=== PATIENT | male | born 1965 | race Caucasian/White ===

== ENCOUNTER 2020-05-23 19:44 | Emergency (ER) | payer MEDICARE, MEDICAID, SELFPAY ==
[2020-05-23] VITALS (15 sets, daily range): BP systolic 121–169; BP diastolic 78–115; PULSE 61–96; RESP 16–28; TEMP 36.3–36.4; O2SAT 93–100
--- NOTE | 2020-05-23 20:09 | ED.GENADUL_ITS ---
Discharge Plan Disposition Patient Disposition: HOME Condition: Stable Discharge Details Chief Complaint: SOB Clinical Impression: Asthma exacerbation in COPD Primary Care Provider: Anita,Local ED Provider: Dex Boyd Home Meds and New Rx's Prescriptions: New doxycycline hyclate 100 mg tablet 100 mg PO BID Qty: 14 RF: 0 prednisone 20 mg tablet 60 mg PO DAILY 4 Days Qty: 12 RF: 0 Continued Uniphyl 400 MG tablet extended release 400 mg PO BID RF: 0 levothyroxine [Synthroid] 25 MCG tablet 1 tab PO DAILY RF: 0 albuterol sulfate [ProAir HFA] 200 PUFF HFA aerosol inhaler 2 puff Inhalation PRNRF: 0 Spiriva with HandiHaler 18 MCG capsule, w/inhalation device 1 puff Inhalation DAILY RF: 0 Asmanex Twisthaler 1 EACH aerosol powdr breath activated 2 puff Inhalation BID RF: 0 prednisone 20 MG tablet 60 mg PO DAILY 4 Days RF: 0 doxycycline hyclate [Doryx] 100 MG tablet,delayed release (DR/EC) 100 mg PO BID Qty: 14 RF: 0 gabapentin 600 mg Tablet 600 mg PO BID RF: 0 loratadine [Claritin] 10 mg Tablet 10 mg PO DAILY RF: 0 guaifenesin [Mucinex] 600 mg Tablet Extended Release 12hr 600 mg PO BID RF: 0 Discharge Instructions Instructions: COPD (Chronic Obstructive Pulmonary Disease) (ED) Additional Instructions: your xray showed lung nodules which is likely from your prior smoking, you need to let your primary care provider of this and may need to have a cat scan follow up with your primary care provider within 1 week if you feel more ill, have worsening difficulty breathing or chest pain/pressure retrun to the emergency department Medical Decision Making 55 yo male with hx of copd who has been out of his meds since because the [place]'t [place] them yet and has had slowly worsening shortness of breath since then. No fevers, intermittent mild cough not worse from baseline, no chest pressure, has an ache in the anterior chest similar to when his copd acts up. He is HD stable with diffuse wheezing in all lung peterson speaking in full sentences, soft abdomen, no calf tenderness, no jvd. Based on history and exam suspect copd, will tx with steroids and nebs. His chest pain doesn't seem typical of acs but will obtain ecg and troponin, has had pain for over 6 hours so if troponin negative doubt RI. No pleuritic chest pain or evidence of dvt and exam consistent with copd so doubt PE pt remains stable and feels much better after nebs and soludemrol. His xray shows pneumonitis and will start doxy for this, also shows nodules which I informed him of. He does not want to stay for more nebs and would like to go home, will d/c on prednisone, doxy and albuterol and advised f/u with pcp with return precautions Differential Diagnosis Differential Diagnosis: copd, pna, bronchitis Imaging Data Radiologic Study: Attestation: I personally reviewed and interpreted this imaging study as follows: Imaging: X-Ray Radiologist's impression: IMPRESSION: 1. Bibasilar interstitial findings suggesting pneumonitis that may be viral or atypical bacterial related. 2. Old granulomatous disease. 3. 5 mm and smaller lung nodules at the left lung base. As these nodules are overlying the posterior 9th rib, it is difficult to tell whether or not the calcified. If clinically warranted, consider CT scan of the chest for further characterization. ECG Data Attestation: I personally reviewed and interpreted this ECG (s) as follows: Prior ECG tracings: not available for review Interpretation: sinus rhythm, rate of 79, pr 144, qtc 385 HPI General Mode of arrival: EMS . Date/Time Provider Initiated Documentation: 05/23/20 20:01 . Limitations to Documentation: no limitations . Information obtained by: patient . History of Present Illness 55 year old M presents to the emergency department with the chief complaint of shortness of breath, described as moderate, Patient started experiencing this day(s) (3) and it has been constant. No relieving factors improve symptom(s), No ex acerbating factors reported . Patient did receive the following treatments prior to arrival, none Related Data Home Medications Medication Instructions Recorded Confirmed Asmanex Twisthaler 2 puff INHALATION BID 07/31/17 05/23/20 Spiriva with HandiHaler 1 puff INHALATION DAILY 07/31/17 05/23/20 Uniphyl 400 mg PO BID 07/31/17 05/23/20 albuterol sulfate [ProAir HFA] 2 puff INHALATION PRN 07/31/17 doxycycline hyclate [Doryx] 100 mg PO BID #14 tabcr 07/31/17 levothyroxine [Synthroid] 1 tab PO DAILY 07/31/17 05/23/20 prednisone 60 mg PO DAILY 4 Days tab 07/31/17 doxycycline hyclate 100 mg PO BID #14 tab 05/23/20 gabapentin 600 mg PO BID 05/23/20 05/23/20 guaifenesin [Mucinex] 600 mg PO BID 05/23/20 05/23/20 loratadine [Claritin] 10 mg PO DAILY 05/23/20 05/23/20 prednisone 60 mg PO DAILY 4 Days #12 tab 05/23/20 Previous Rx's Medication Instructions Recorded doxycycline hyclate [Doryx] 100 mg PO BID #14 tabcr 07/31/17 prednisone 60 mg PO DAILY 4 Days tab 07/31/17 doxycycline hyclate 100 mg PO BID #14 tab 05/23/20 prednisone 60 mg PO DAILY 4 Days #12 tab 05/23/20 Allergies Allergy/AdvReac Type Severity Reaction Status Date / Time pineapple Allergy Severe Anaphylaxsi Unverified 05/23/20 19:47 s lysol Allergy Severe Anaphylaxsi Uncoded 05/23/20 19:47 s General Stated Complaint: SOB BRUCE: 3 Review of Systems All systems reviewed & are unremarkable except as noted in HPI and below Constitutional Constitutional: Denies chills, Denies fever(s) and Denies weakness Respiratory Respiratory: Denies cough Gastrointestinal Gastrointestinal: Denies abdominal pain, Denies nausea and Denies vomiting Musculoskeletal Musculoskeletal: Denies joint swelling Neurologic Neurologic: Denies weakness Psychiatric Psychiatric: Denies depression PFSH Social History Smoking/Tobacco Use Status: Never Alcohol Intake: never Drug use: Never Substance use type: does not use Do you feel safe at home: Yes Do you feel safe in your relationship?: Yes Exam Const General: no acute distress Orientation: alert HENVA Head: normal to inspection Ears: external ears normal General nose exam: external nose normal Mouth: moist mucous membranes Eyes General: appearance normal, both eyes and all related structures Neck Neck: normal visual inspection Resp Effort & Inspection: audible wheezes and no use of accessory muscles Cardio Rate: regular rate Skin General skin exam: no rashes or lesions noted Neuro General: patient alert and patient oriented x3 Extrem General: normal to inspection Psych Mental Status: mental status grossly normal Course Vital Signs Vital signs: Vital Signs Temperature 36.3 C L 05/23/20 19:52 Pulse 89 05/23/20 19:52 Respiratory Rate 22 07/05/20 19:52 Blood Pressure 157/88 H 05/23/20 19:52 Pulse Oximetry 96 05/23/20 19:52 Temperature 36.3 C L 05/23/20 19:52 Temperature Source Tympanic 05/23/20 19:52 Pulse 89 05/23/20 19:52 Respiratory Rate 22 05/23/20 19:52 Respiratory Effort Pursed Lip 05/23/20 19:57 Respiratory Depth Shallow 05/23/20 19:57 Respiratory Pattern Normal 05/23/20 19:57 Blood Pressure 157/88 H 05/23/20 19:52 Pulse Oximetry 96 05/23/20 19:52 Oxygen Delivery Method Room Air 05/23/20 19:52 Oxygen Flow Rate 0 05/23/20 19:52 Pain Level 6 05/23/20 19:57
[2020-05-23 20:25] LABS: BE (Venous) 4.5 mmol/L (-3-3); HCO3 (Venous) 30 mmol/L (22-28); O2 Sat (Venous) 40 % (70-80); TCO2 (Venous) 27 mmol/L (22-29); pCO2 (Venous) 57 mm/Hg (34-47); pH (Venous) 7.33 (7.35-7.45); pO2 (Venous) 24 mm/Hg (28-44)
[2020-05-23 20:27] LABS: Abs Immature Grans 0.02 k/cumm (0.0-0.09); Absolute Basophil Count 0.03 k/cumm (0.0-0.2); Absolute Eosinophil Count 0.31 k/cumm (0.0-0.7); Absolute Lymphocyte Count 1.82 k/cumm (1.2-3.4); Absolute Monocyte Count 0.42 k/cumm (0.11-0.7); Absolute Neutrophil Count 4.32 k/cumm (1.2-6.7); Basophils % 0.4; Eosinophils % 4.5; HCT 44.8 % (40.0-50.0); HGB 15.5 g/dL (13.5-17.5); Immature Grans % 0.3 %; Lymphocytes % 26.3; Mean Corp. HGB Concentration 34.6 g/dL (32.0-36.0); Mean Corpuscular Hemoglobin 30.5 pg (27.0-33.0); Mean Platelet Volume 9.6 fL (8.0-11.0); Monocytes % 6.1; Neutrophils % 62.4; Platelet Count 261 x1000/uL (130-400); RBC 5.09 m/cumm (4.50-6.00); RBC Distribution Width 12.4 % (11.8-14.1); White Blood Cell Count 6.92 k/cumm (4.4-10.8)
--- NOTE | 2020-05-23 20:35 | DI.RAD_ITS ---
EXAM: XR PORTABLE CHEST AP CLINICAL HISTORY: shortness of breath TECHNIQUE: 2D digital imaging was performed. COMPARISON: CR LEFT RIBS TO INCLUDE CXR from 03/27/2011 FINDINGS: The heart size is normal. Calcifications near the left hilum are again noted related to granulomatou s disease. Left lower lobe calcifications are also present. The lungs are hyperinflated. No infilt rate, effusion or pneumothorax is seen. IMPRESSION: No acute pulmonary findings. DATA REPOSITORY: RADIATION DOSE DELIVERED:
[2020-05-23] MEDS: methylPREDNISolone SUCC 125 MG VIAL IVP (20:42)
[2020-05-23] MEDS: Albuterol/Ipratropium 3 ML UPD VIAL UPD (20:42)
--- NOTE | 2020-05-23 20:50 | DI.VRAD_ITS ---
PROCEDURE INFORMATION: Exam: XR Chest, 1 View Exam date and time: 05/23/2020 8:29 PM Age: 55 years old Clinical indication: Shortness of breath TECHNIQUE: Imaging protocol: XR of the chest Views: 1 view. COMPARISON: No relevant prior studies available. FINDINGS: Lungs: There is mild pulmonary hyperexpansion. There are calcified left hilar lymph nodes. There is bibasilar interstitial coarsening. No consolidation. There is a cluster of small nodules in the left lung base overlying the posterior aspect of the left 9th rib that may or may not represent calcified granulomata. Pleural space: No pleural effusion or pneumothorax. Heart/Mediastinum: The heart and mediastinum are normal in size. Bones/joints: Unremarkable. IMPRESSION: 1. Bibasilar interstitial findings suggesting pneumonitis that may be viral or atypical bacterial related. 2. Old granulomatous disease. 3. 5 mm and smaller lung nodules at the left lung base. As these nodules are overlying the posterior 9th rib, it is difficult to tell whether or not the calcified. If clinically warranted, consider CT scan of the chest for further characterization. Dictated and Authenticated by: Kurt Navarro MD. Ordering:SOLOMON Kowalski MD
[2020-05-23 20:55] LABS: ALT 15 U/L (16-63); AST 12 U/L (15-37); Albumin 3.9 g/dL (3.4-5.0); Alkaline Phosphatase 74 U/L (46-116); BUN 18 mg/dL (7-18); Bilirubin, Total 0.3 mg/dL (0.2-1.0); Calcium 9.6 mg/dL (8.5-10.1); Chloride 105 mmol/L (98-107); Glucose 96 mg/dL (74-106); Sodium 141 mmol/L (136-145); Total Protein 7.3 g/dL (6.4-8.2)
[2020-05-23 21:00] LABS: Troponin I < 0.05 ng/mL (<0.06)
[2020-05-23] MEDS: Doxycycline Hyclate 100 MG CAP PO (21:09)
--- NOTE | 2020-05-24 12:47 | NUR.NOTE ---
Nursing Note: pt called today 05/24/2020 1245pm. said he was seen here last night and needs to follow up with primary,but does not have one. I put him on the list to get a PCP and gave to care management. kw
--- NOTE | 2020-05-24 14:14 | CMPROGNOTE_ITS ---
- If Service Date Differs Date of service: 05/24/20 Time of Service: 14:14 Care Management Progress Note Sean is seen in the ED on 05/23/2020 for asthma exacerbation. [facility] is asked by ED provider to coordinate a referral to Dr. Rapp, teledoc, at [facility]. Before the referral is sent, [facility] receives a telephone call from Venessa of [facility] advising Sean' has called their health center hoping to get Sean established there. Venessa requests notes from Sean' ED visit for review. [facility] will follow-up with Venessa in a few days to ensure they were able to offer Sean a follow-up ED visit.
== END 2020-05-23 21:25 | disposition home or self-care (01) ==
PROVIDERS: Emergency Provider Emergency Medicine
DX: J44.0 Chronic obstructive pulmonary disease with (acute) lower respiratory infection (principal); J18.9 Pneumonia, unspecified organism; J45.901 Unspecified asthma with (acute) exacerbation; R91.1 Solitary pulmonary nodule; R05 Cough
CPT/HCPCS: 36415; 80053; 82805; 93005; 94640; 96374; 99285; 71045; 84484; 85025; 93010; 99284; J2930; J7620

== ENCOUNTER 2020-07-27 15:41 | Outpatient (REF) | payer MEDICARE, MEDICAID, SELFPAY ==
[2020-07-30 11:07] LABS: Patient Race White; SARS-CoV-2 RNA Undetected (Undetected); SARS-CoV-2 Specimen Source Nasal
== END 2020-07-27 16:01 ==
LOC: NCHCN 15:41
PROVIDERS: PCP Nurse Practitioner Family; Visit Provider Internal Medicine
DX: Z20.828 Contact with and (suspected) exposure to other viral communicable diseases (principal)
CPT/HCPCS: U0003

== ENCOUNTER 2020-09-24 04:26 | Outpatient (CLI) | payer MEDICAID, SELFPAY ==
--- NOTE | 2020-09-24 10:45 | DI.RAD_ITS ---
EXAM: XR LUMBAR SPINE COMPLETE CLINICAL HISTORY: CHRONIC LOW BACK PAIN,M54.5. TECHNIQUE: 2D digital imaging was performed. COMPARISON: No exams were available for comparison FINDINGS: Are 5 lumbar type vertebral bodies. There is disc space narrowing at L4-L5. Small endplate osteophy ion are also noted at L4-L5. No spondylolysis or spondylolisthesis. No acute fractures or subluxati ons. There is straightening of the normal lumbar lordosis. Atherosclerosis is present. IMPRESSION: Mild degenerative changes in the lumbar spine. DATA REPOSITORY: RADIATION DOSE DELIVERED:
== END 2020-09-24 04:46 ==
PROVIDERS: PCP Internal Medicine; Visit Provider Internal Medicine
DX: M47.816 Spondylosis without myelopathy or radiculopathy, lumbar region (principal)
CPT/HCPCS: 72110

== ENCOUNTER 2020-10-01 03:39 | Outpatient (CLI) | payer MEDICAID, SELFPAY ==
--- NOTE | 2020-10-01 14:31 | DI.CT_ITS ---
EXAM: CT CHEST WO CLINICAL HISTORY: CHRONIC OBSTRUCTIVE PULMONARY DISEASE,J44.9. TECHNIQUE: Imaging protocol: Axial computed tomography images were obtained and coronal and sagittal reformatted images were created and reviewed. COMPARISON: CR,XR XR PORTABLE CHEST AP from 05/23/2020 FINDINGS: The examination is limited due to patient motion artifact. Tracheobronchial tree: Patent where visualized. Mediastinum and Maxine: No dominant adenopathy or fluid collection. Calcified mediastinal lymph nodes. Pulmonary parenchyma: Marked centrilobular emphysematous changes. Scarring in the right middle lobe. Calcified granuloma in the left lower lobe. No focal consolidating infiltrates. Pleura: No effusion or pneumothorax. Heart: The heart is not dilated. No coronary artery calcifications are seen. No pericardial effusion. Aorta: Thoracic aorta non-dilated. Mild atherosclerosis. Upper abdomen: Calcified granuloma in the spleen. Lymph nodes: Calcified mediastinal lymph nodes. Bones:Normal. Soft tissues: Unremarkable. IMPRESSION: 1. Marked centrilobular emphysema. 2. Findings of prior granulomatous disease with a calcified pulmonary nodule, calcified mediastinal l ymph nodes and splenic calcifications. 3. Mild atherosclerosis. RADIATION DOSE DELIVERED: 687.11mGy.cm Total DLP 687.11mGy.cm Total DLP DATA REPOSITORY: All CT scans at this facility are submitted to the National Radiology Data Registry (NRDR) Dose Index Registry (DIR) with the [employer] ([employer]). RADIATION OPTIMIZATION: All CT scans at this facility use at least one of these dose optimization te chniques: automated exposure control; mA and/or kV adjustment per patient size (includes targeted exa ms where dose is matched to clinical indication); or iterative reconstruction.
== END 2020-10-01 03:59 ==
PROVIDERS: PCP Internal Medicine; Visit Provider Internal Medicine
DX: J43.2 Centrilobular emphysema (principal); R91.1 Solitary pulmonary nodule; I25.10 Atherosclerotic heart disease of native coronary artery without angina pectoris; I89.8 Other specified noninfective disorders of lymphatic vessels and lymph nodes
CPT/HCPCS: 71250

== ENCOUNTER 2020-11-01 16:41 | Outpatient (REF) | payer MEDICAID, SELFPAY ==
[2020-11-04 21:35] LABS: COVID-19 RT-PCR Result NEGATIVE (Negative)
== END 2020-11-01 17:01 ==
LOC: NCHCN 16:41
PROVIDERS: PCP Internal Medicine; Visit Provider Internal Medicine
DX: Z20.828 Contact with and (suspected) exposure to other viral communicable diseases (principal)
CPT/HCPCS: U0003

== ENCOUNTER 2020-11-08 20:59 | Outpatient (REF) | payer MEDICAID, MEDICARE, SELFPAY ==
[2020-11-11 00:13] LABS: COVID-19 RT-PCR Result NEGATIVE (Negative)
== END 2020-11-08 21:19 ==
LOC: NCHCN 20:59
PROVIDERS: PCP Internal Medicine; Visit Provider Nurse Practitioner Family
DX: Z20.828 Contact with and (suspected) exposure to other viral communicable diseases (principal)
CPT/HCPCS: U0003

== ENCOUNTER 2020-11-11 10:54 | Emergency (ER) | payer MEDICAID, SELFPAY ==
[2020-11-11] VITALS (35 sets, daily range): BP systolic 110–144; BP diastolic 74–92; PULSE 68–95; RESP 9–28; TEMP 36.8; O2SAT 91–97
--- NOTE | 2020-11-11 11:00 | RT.EKG_ITS ---
APPROVED REPORT Exam: Resting ECG Patient Location: E HR:85 bpm ECG Measurements Heart Rate 85 AXIS AZ 129 P 86 QRSd 86 QRS 22 QT 344 T 67 QTc 410 Conclusion Sinus rhythm...normal P axis, V-rate 60- 99 I have reviewed and interpreted ECG and agree with software generated interpretation.
--- NOTE | 2020-11-11 12:00 | DI.CT_ITS ---
EXAM: CT CHEST PE CTA CLINICAL HISTORY: SOB, COPD, Covid exposure. TECHNIQUE: Imaging Protocol: Axial CT angiography was performed with multi-slice acquisition and mu lti-planar and/or 3D reconstructions. CONTRAST MATERIAL: Intravenous: Omnipaque 350 Contrast volume:99 mL COMPARISON: CT CT CHEST WO from 10/01/2020 FINDINGS: Pulmonary Arteries: No evidence of filling defect to suggest pulmonary emboli. Tracheobronchial tree: Patent where visualized. Mediastinum and Maxine: No dominant adenopathy or fluid collection. Calcified lymph nodes seen in the m ediastinum and left hilum consistent with prior granulomatous disease. Pulmonary parenchyma: Marked emphysematous changes in the lungs. No focal consolidating infiltrates. Calcified granuloma in the left lung. Stable parenchymal scarring. Pleura: No effusion or pneumothorax. Heart: The heart is not dilated. No coronary artery calcifications are seen. No pericardial effusion. Aorta: Thoracic aorta non-dilated. Mild atherosclerosis. No evidence of dissection. Upper abdomen: Calcified granuloma in the spleen and liver. Bones: Mild degenerative changes in the spine. Soft tissues: Unremarkable. IMPRESSION: 1. No evidence of pulmonary embolism, thoracic aortic dissection or aneurysm. 2. No CT evidence of pneumonia. 3. Severe emphysematous changes in the lung. 4. Findings consistent with prior granulomatous disease. RADIATION DOSE DELIVERED: 546.12mGy.cm Total DLP DATA REPOSITORY: All CT scans at this facility are submitted to the National Radiology Data Registry (NRDR) Dose Index Registry (DIR) with the [employer] ([employer]). RADIATION OPTIMIZATION: All CT scans at this facility use at least one of these dose optimization te chniques: automated exposure control; mA and/or kV adjustment per patient size (includes targeted exa ms where dose is matched to clinical indication); or iterative reconstruction.
--- NOTE | 2020-11-11 12:00 | ED.GENADUL_ITS ---
Discharge Plan Disposition Patient Disposition: HOME Condition: Stable Discharge Details Clinical Impression: Shortness of breath Primary Care Provider: Rashawn Francisco ED Provider: Jose Cruz Porter Home Meds and New Rx's Prescriptions: Continued gabapentin 600 mg tablet 600 mg PO BID RF: 0 furosemide 40 mg tablet 40 mg PO DAILY RF: 0 tramadol 50 mg tablet 50 mg PO Q6H PRNRF: 0 omeprazole 20 mg capsule,delayed release(DR/EC) 20 mg PO DAILY RF: 0 Trelegy Ellipta 200-62.5-25 mcg Blister With Device 1 inh INHALATION DAILY RF: 0 albuterol sulfate 2.5 mg /3 mL (0.083 %) Solution For Nebulization 2.5 mg inhalation QID PRN PRNRF: 0 prednisone 10 mg Tablets,Dose Pack PO DAILY RF: 0 levothyroxine [Synthroid] 25 MCG tablet 1 tab PO DAILY RF: 0 albuterol sulfate [ProAir HFA] 200 PUFF HFA aerosol inhaler 2 puff Inhalation PRNRF: 0 loratadine [Claritin] 10 mg Tablet 10 mg PO DAILY RF: 0 guaifenesin [Mucinex] 600 mg Tablet Extended Release 12hr 600 mg PO BID RF: 0 Discharge Instructions Instructions: Dyspnea (ED) Additional Instructions: Work-up here in the ER did not reveal any obvious emergent process. Laboratory values, repeat cardiac enzyme, and chest CTA were unremarkable. There is no clear indication for additional antibiotic therapy. Continue taking your medication as directed. Continue [id number] medication for symptomatic control. Covid test is pending, quarantine until the test comes back negative. I do recommend contacting both your primary care provider and e learning specialist next available business hours, I am unsure of their hours given the holidays. Please watch for new or worsening symptoms and return to the ER for any concerns. Stand Alone Forms: POSITIVE COVID-19/TO BE TESTED Discharge Data Discharge Date/Time-TO BE ENTERED AT DEPARTURE: 11/11/20 15:35 Medical Decision Making 55-year-old gentleman, history of COPD, granulomatous lung disease, hypothyroidism, former smoker, presents to the ER reporting nasal congestion, fever 4 days ago, continuation of productive cough and shortness of breath. His was diagnosed with Covid however his tests have come back negative. He has recently been on 3 separate antibiotic regimens, amoxicillin, doxycycline, Levaquin, and finishing the last couple of days of his steroid taper. He does have a local primary care provider and e learning specialist. He reports that there has been no change in his medications. Given his cough, shortness of breath, decreased taste and smell, certainly Covid is high on my differential even with his negative test. Clinically he appears well, nontoxic. Here in the ER he is afebrile. Blood pressure 113/91, pulse in the 80s, O2 sat 95% on room air. Of note his initial respiratory rate was 28 however during my evaluation he was 14. We will initiate a cardiac work-up and obtain a chest CTA for further evaluation of his ongoing symptoms. He denies any chest pain whatsoever, will not initiate aspirin therapy. After coughing, his lungs are clear to auscultation, no clear indication for breathing treatments. Patient is comfortable with this plan. Laboratory values are unremarkable for any obvious acute emergent process. White blood cell count of 8.31. No evidence of anemia. Electrolytes unremarkable. GFR greater than 60. Magnesium 2.3, troponin less than 0.05. Patient and I discussed his initial results. He is willing to wait for a repeat troponin. Upon reevaluation he is resting comfortably using a cell phone without difficulty. Chest CTA read by virtual radiology as no evidence of COVID-19 pneumonia. No pulmonary emboli. Severe emphysema with scarring of the right upper lobe. Evidence of prior granulomatous disease. Repeat troponin remains less than 0.05. Patient remains hemodynamically stable under my care. He speaks in full sentences without difficulty. O2 sat remains in the mid 90s on room air. Discussed CT results and repeat troponin with patient. Covid test is pending. No clear indication for antibiotic therapy here in the ER today. Recommend treating with [id number] medications, continuing his current medication regimen, and contacting both his primary care provider and pulmonology team for his ongoing symptoms during business hours. He was encouraged to return to the ER for new or worsening symptoms. We discussed quarantining until his Covid test was resulted and negative. Patient has no additional questions or concerns and is comfortable discharge at this time. Medical Records Medical records reviewed: Yes I reviewed the patient's medical records. Lab Data Lab results reviewed: Yes I reviewed the patient's lab results. Labs: Laboratory Tests Range/Units 11/11/20 11/11/20 11/11/20 11:45 11:45 14:40 WBC (4.4-10.8) 10^3/uL 8.31 RBC (4.36-5.78) 10^6/uL 5.15 Hgb (13.5-17.5) g/dL 15.4 Hct (40.0-50.0) % 46.2 MCV (80-95) fL 89.7 MCH (27.0-33.0) pg 29.9 MCHC (32.0-36.0) % 33.3 RDW (11.8-14.1) % 13.1 Plt Count (130-400) 10^3/uL 273 MPV (8.0-11.0) fL 9.7 Immature Gran % 0.5 Neutrophils % 80.0 Lymphocytes % 15.0 Monocytes % 3.9 Eosinophils % 0.2 Basophils % 0.4 Nucleated RBC % % 0 Absolute Neutrophils (1.2-6.7) 10^3/uL 6.65 Absolute Lymphocytes (1.2-3.4) 10^3/uL 1.25 Absolute Monocytes (0.1-0.8) 10^3/uL 0.32 Absolute Eosinophils (0.0-0.7) 10^3/uL 0.02 Absolute Basophils (0.0-0.2) 10^3/uL 0.03 Sodium (136-145) mmol/L 140 Potassium (3.5-5.1) mmol/L 4.2 Chloride (98-107) mmol/L 106 Carbon Dioxide (21.0-32.0) mmol/L 25.9 Anion Gap (3-11) mmol/L 8.1 BUN (7-18) mg/dL 16 Creatinine (0.70-1.30) mg/dL 0.97 Estimated GFR/1.73 m2 (mL/min/1.73m2) >= 60.00 Glucose (74-106) mg/dL 119 H Calcium (8.5-10.1) mg/dL 9.0 Magnesium (1.8-2.4) mg/dL 2.3 Total Bilirubin (0.2-1.0) mg/dL 0.5 AST (15-37) U/L 8 L ALT (16-63) U/L 17 Alkaline Phosphatase (46-116) U/L 66 Troponin I (<0.06) ng/mL < 0.05 < 0.05 Total Protein (6.4-8.2) g/dL 6.7 Albumin (3.4-5.0) g/dL 3.3 L ECG Data Attestation: I personally reviewed and interpreted this ECG (s) as follows: Interpretation: Please see official report by Dr. Cerda. Sinus rhythm, ventricular of 85. No STEMI. HPI General Mode of arrival: ambulatory . Date/Time Provider Initiated Documentation: 11/11/20 10:55 . Limitations to Documentation: no limitations . Information obtained by: patient . HPI Narrative: This is a 55-year-old gentleman, past medical history of COPD, granulomatosis lung disease, hypothyroidism, former smoker, presenting to the ER today for ongoing sinus infection, cough, sometimes productive yellow sputum, worsening shortness of breath going on for at least 1 month. He tells me this all began nearly 1 year ago when he developed pneumonia, was hospitalized in [place]. Since then he has had very frequent infections. Over the past couple of months, he tells me he has been on 3 antibiotics for sinusitis and bronchitis. He was seen by his primary care provider last week most recently, placed on Levaquin and steroids. Levaquin has been completed. Has 2 days left of his steroid taper. He reports ongoing wheezing, chest tightness, but no chest pain. He reports a fever of 1 00.44 days ago. He denies recent travel. He reports that he lives in a trailer, his came back positive with a Covid test last week. He has been tested twice and was negative twice for Covid. Denies headache, visual changes, sore throat. Continues to have ongoing sinus congestion, clear-yellow drainage. Denies chest pain, back pain, abdominal pain, nausea, vomiting. Has had occasional diarrhea. Denies dysuria. Denies numbness, tingling, weakness. Reports decreased sense of smell and taste over the past several days. Patient reports that he was also recently on doxycycline and amoxicillin. He contacted his primary care office and they stated that he had exhausted the outpatient resources and likely needed further evaluation in the ER. Related Data Home Medications Medication Instructions Recorded Confirmed albuterol sulfate [ProAir HFA] 2 puff INHALATION PRN 07/31/17 levothyroxine [Synthroid] 1 tab PO DAILY 07/31/17 11/11/20 guaifenesin [Mucinex] 600 mg PO BID 05/23/20 11/11/20 loratadine [Claritin] 10 mg PO DAILY 05/23/20 11/11/20 furosemide 40 mg tablet 40 mg PO DAILY 07/02/20 11/11/20 gabapentin 600 mg tablet 600 mg PO BID tab 07/02/20 11/11/20 omeprazole 20 mg capsule,delayed 20 mg PO DAILY 07/02/20 11/11/20 release tramadol 50 mg tablet 50 mg PO Q6H PRN 07/02/20 11/11/20 Trelegy Ellipta 1 inh INHALATION DAILY 11/11/20 11/11/20 albuterol sulfate 2.5 mg INHALATION QID PRN PRN 11/11/20 11/11/20 prednisone mg PO DAILY 11/11/20 Allergies Allergy/AdvReac Type Severity Reaction Status Date / Time pineapple Allergy Severe Anaphylaxsi Unverified 11/11/20 11:27 s lysol Allergy Severe Anaphylaxsi Uncoded 11/11/20 11:27 s General Stated Complaint: SOB BRUCE: 2 Review of Systems Constitutional Constitutional: Denies fatigue, Reports fever(s) (4 days ago), Denies headache(s) and Denies weakness Eyes Eyes: Denies change in vision ENT Ears, Nose, Mouth, and Throat: Denies headache(s), Reports nasal congestion, Reports nasal discharge and Denies neck pain Cardiovascular Cardiovascular: Denies chest pain and Reports dyspnea Respiratory Respiratory: Reports cough, Denies hemoptysis, Reports excessive phlegm production, Reports dyspnea and Reports wheezing (Described as a tightness) Gastrointestinal Gastrointestinal: Denies abdominal pain, Reports diarrhea, Denies nausea and Denies vomiting Genitourinary Genitourinary: Denies dysuria Musculoskeletal Musculoskeletal: Denies back pain, Denies neck pain and Denies tingling Integumentary/Breasts Skin/Breast: Denies rash Neurologic Neurologic: Denies headache(s), Denies tingling and Denies weakness Endocrine Endocrine: Denies fatigue [facility] Medical History Acid reflux COPD (chronic obstructive pulmonary disease) Granulomatous lung disease Hypothyroidism Multiple nodules of lung Restless leg syndrome Social History Smoking/Tobacco Use Status: Former Tobacco Use Smoking risk assessment performed?: Yes Alcohol Intake: never Drug use: Never Substance use type: does not use Do you feel safe at home: Yes Do you feel safe in your relationship?: Yes Exam Const General: cooperative, healthy appearing, comfortable and no acute distress Orientation: alert, awake and oriented x3 HENMT Head: normal to inspection, normocephalic and atraumatic Ears: external ears normal, TM's normal bilaterally and EAC's normal General nose exam: external nose normal, nares normal, mucous membranes and turbinates abnormal erythematous and nasal discharge clear Face and sinus: normal facial exam Mouth: moist mucous membranes Throat: posterior oropharynx normal Eyes General: appearance normal, both eyes and all related structures Alignment and Position: alignment normal Periorbital: periorbital findings normal Eyelids: eyelids normal Conjunctivae: conjunctivae normal Sclera: sclerae normal Cornea: corneas normal Pupils: PERRL EOM: EOM intact bilaterally Direct ophthalmoscopy: normal light reflex Neck Neck: normal visual inspection, full ROM, no lymphadenopathy, trachea midline, supple and nontender Resp Effort & Inspection: normal respiratory effort and able to speak in complete sentences Auscultation: wheezes scattered wheezes (Minimal, clears with cough) Cardio Rate: regular rate Rhythm: regular rhythm GI Palpation: soft, not firm, no guarding and nontender Auscultation: normal bowel sounds Back/Spine/Pelvis Back: No back tenderness Skin General skin exam: no rashes or lesions noted Neuro General: patient alert, patient awake, moves all extremities and no focal motor deficits Cognition: normal cognition Speech: speech normal Gait: normal gait Motor: muscle tone normal throughout Sensory Exam: no sensory deficits noted Extrem General: normal to inspection, full ROM, capillary refill normal, no pedal edema and no calf tenderness Psych Appearance: grossly normal Mental Status: mental status grossly normal Course Vital Signs Vital signs: Vital Signs Temperature 36.8 C 11/11/20 11:00 Pulse 87 11/11/20 11:00 Respiratory Rate 28 H 11/11/20 11:00 Blood Pressure 113/91 H 11/11/20 11:00 Pulse Oximetry 95 11/11/20 11:00 Temperature 36.8 C 11/11/20 11:00 Temperature Source Skin 11/11/20 11:00 Pulse 87 11/11/20 11:00 Respiratory Rate 28 H 11/11/20 11:00 Respiratory Effort Non-Labored 11/11/20 11:34 Blood Pressure 113/91 H 11/11/20 11:00 Pulse Oximetry 95 11/11/20 11:00 Oxygen Delivery Method Room Air 11/11/20 11:00 Oxygen Flow Rate 0 11/11/20 11:00 Pain Level 5 11/11/20 11:00
[2020-11-11 12:11] LABS: Abs Immature Grans 0.04 10^3/uL (0.0-0.06); Absolute Basophil Count 0.03 10^3/uL (0.0-0.2); Absolute Eosinophil Count 0.02 10^3/uL (0.0-0.7); Absolute Lymphocyte Count 1.25 10^3/uL (1.2-3.4); Absolute Monocyte Count 0.32 10^3/uL (0.1-0.8); Absolute Neutrophil Count 6.65 10^3/uL (1.2-6.7); Basophils % 0.4; Eosinophils % 0.2; HCT 46.2 % (40.0-50.0); HGB 15.4 g/dL (13.5-17.5); Immature Grans % 0.5; MCH 29.9 pg (27.0-33.0); MCHC 33.3 % (32.0-36.0); MCV 89.7 fL (80-95); MPV 9.7 fL (8.0-11.0); Monocytes % 3.9; Nucleated RBC 0 %; Platelet Count 273 10^3/uL (130-400); RBC 5.15 10^6/uL (4.36-5.78); RDW 13.1 % (11.8-14.1); RDW-SD 42.7 fL; WBC 8.31 10^3/uL (4.4-10.8)
[2020-11-11 12:26] LABS: ALT 17 U/L (16-63); AST 8 U/L (15-37); Albumin 3.3 g/dL (3.4-5.0); Alkaline Phosphatase 66 U/L (46-116); Anion Gap 8.1 mmol/L (3-11); BUN 16 mg/dL (7-18); Bilirubin, Total 0.5 mg/dL (0.2-1.0); CO2 25.9 mmol/L (21.0-32.0); CREATININE 0.97 mg/dL (0.70-1.30); Chloride 106 mmol/L (98-107); Glucose 119 mg/dL (74-106); Magnesium 2.3 mg/dL (1.8-2.4); Potassium 4.2 mmol/L (3.5-5.1); Sodium 140 mmol/L (136-145); Total Protein 6.7 g/dL (6.4-8.2); Troponin I < 0.05 ng/mL (<0.06)
[2020-11-11] MEDS: Omnipaque 350 MG/ML 100 ML BTL IJ (13:03)
[2020-11-11] MEDS: Normal Saline - Diluent 50 ML VIAL IV (13:03)
[2020-11-11] MEDS: Normal Saline Flush 10 ML SYR IVP (13:03)
--- NOTE | 2020-11-11 13:26 | DI.VRAD_ITS ---
PROCEDURE INFORMATION: Exam: CT Angiography Chest With Contrast Exam date and time: 11/11/2020 12:03 PM Age: 55 years old Clinical indication: Other: SOB, copd, covid exposure TECHNIQUE: Imaging protocol: Computed tomographic angiography of the chest with intravenous contrast. 3D rendering (Not supervised by radiologist): MIP and/or 3D reconstructed images were created by the technologist. Radiation optimization: All CT scans at this facility use at least one of these dose optimization techniques: automated exposure control; mA and/or kV adjustment per patient size (includes targeted exams where dose is matched to clinical indication); or iterative reconstruction. Contrast material: OMNIPAQUE 350; Contrast volume: 100 ml; Contrast route: INTRAVENOUS (IV); COMPARISON: CT CHEST WO 10/01/2020 2:29 PM FINDINGS: Pulmonary arteries: Normal. No pulmonary emboli. Aorta: Unremarkable. No aortic aneurysm. No aortic dissection. Lungs: Bilateral lung parenchymal facilities changes. No airspace disease or consolidation. No evidence of pneumonia. Stable right upper lobe parenchymal scarring. Calcified pulmonary nodules. Pleural space: Unremarkable. No pneumothorax. No pleural effusion. Heart: Unremarkable. No cardiomegaly. No pericardial effusion. Lymph nodes: Calcified mediastinal lymph nodes. Spleen: Calcified splenic granulomas. Bones/joints: Unremarkable. No acute fracture. Soft tissues: Unremarkable. IMPRESSION: 1. No evidence of Covid-19 pneumonia. 2. No pulmonary emboli. 3. Severe emphysematous changes with stable right upper lobe parenchymal scarring. 4. Evidence of prior granulomatous disease. Dictated and Authenticated by: Donaldo Morel MD. Ordering:PEYTON Billingsley MD
[2020-11-11 15:22] LABS: Troponin I < 0.05 ng/mL (<0.06)
--- NOTE | 2020-11-11 15:42 | NUR.NOTE ---
Nursing Note: Patient was not noted coughing, having any increased work of breathing or any s/s of difficulty breathing at any time during his ER visit.
[2020-11-13 08:51] LABS: COVID-19 RT-PCR UVMMC Result Indeterminate (Negative)
== END 2020-11-11 15:35 | disposition home or self-care (01) ==
LOC: ER 15:31
PROVIDERS: Emergency Provider Physician Assistant; PCP Internal Medicine
DX: R06.02 Shortness of breath (principal); R50.9 Fever, unspecified; R05 Cough; J44.9 Chronic obstructive pulmonary disease, unspecified; Z87.891 Personal history of nicotine dependence; Z11.59 Encounter for screening for other viral diseases; Z20.828 Contact with and (suspected) exposure to other viral communicable diseases
CPT/HCPCS: 36415; 71275; 80053; 93005; 99285; U0003; 83735; 84484; 85025; 93010; J3490

== ENCOUNTER 2020-11-18 16:15 | Outpatient (REF) | payer MEDICAID, SELFPAY ==
[2020-11-21 14:25] LABS: COVID-19 RT-PCR UVMMC Result Positive (Negative)
== END 2020-11-18 16:35 ==
LOC: NCHCN 16:15
PROVIDERS: PCP Internal Medicine; Visit Provider Nurse Practitioner Family
DX: Z20.828 Contact with and (suspected) exposure to other viral communicable diseases (principal); R51.9 Headache, unspecified; R53.83 Other fatigue; R43.0 Anosmia
CPT/HCPCS: U0003

== ENCOUNTER 2020-11-24 03:51 | Outpatient (CLI) | payer MEDICARE, MEDICAID, SELFPAY | END 2020-11-24 04:11 | PROVIDERS: PCP Internal Medicine; Visit Provider Family Medicine | DX: U07.1 COVID-19 (principal); Z53.09 Procedure and treatment not carried out because of other contraindication; J44.9 Chronic obstructive pulmonary disease, unspecified; R06.02 Shortness of breath | CPT/HCPCS: 96365 ==

== ENCOUNTER 2020-11-24 08:47 | Emergency (ER) | payer MEDICAID, SELFPAY ==
[2020-11-24] VITALS (42 sets, daily range): BP systolic 105–131; BP diastolic 68–87; PULSE 77–113; RESP 12–22; TEMP 36.5–36.7; O2SAT 87–99
--- NOTE | 2020-11-24 08:45 | RT.EKG_ITS ---
APPROVED REPORT Exam: Resting ECG Patient Location: E HR:96 bpm ECG Measurements Heart Rate [address] 147 P 88 QRSd 90 QRS 27 QT 345 T 57 QTc 437 Conclusion Sinus rhythm...normal P axis, V-rate 60- 99
--- NOTE | 2020-11-24 09:00 | DI.CT_ITS ---
EXAM: CT CHEST PE CTA CLINICAL HISTORY: shortness of breath, syncope. TECHNIQUE: Imaging Protocol: CT angiography of the chest was performed using pulmonary embolus sawyer col. Multi planar reconstructions were performed. CONTRAST MATERIAL: Intravenous: Omnipaque 350 Contrast volume: 100 cc COMPARISON: CT CT CHEST PE CTA from 11/11/2020 FINDINGS: CHEST: PULMONARY ARTERIES: There are no intraluminal filling defects to suggest acute pulmonary emboli. LUNGS: COPD-emphysematous changes again noted. There are increasing infiltrates in the lung bases, m ore so on right lung base posterior basal and lateral basal segments, this superimposed upon severe e mphysematous changes. Calcified granuloma in the left lower lobe is again noted.. There are no ple ural effusions. MEDIASTINUM: There is no hilar nor mediastinal adenopathy. Visualized thyroid unremarkable. CARDIAC: Heart size is normal. There is no pericardial effusion.Caliber of the thoracic aorta is wit hin normal limits. There is no evidence of shift of the interventricular septum. PARTIALLY VISUALIZED UPPERMOST ABDOMEN: Small calcified granuloma is noted in the spleen and liver. OSSEOUS: No significant osseous lesions.. IMPRESSION: 1. No evidence of acute pulmonary emboli. 2. Severe emphysematous changes-COPD with increasing infiltrates in both lower lobes, slightly more s o on the right side. No associated pleural effusions. No intrathoracic adenopathy. 3. Heart size normal. There is no pericardial effusion. RADIATION DOSE DELIVERED: LINK-TO-SR Total DLP DATA REPOSITORY: All CT scans at this facility are submitted to the National Radiology Data Registry (NRDR) Dose Index Registry (DIR) with the [employer] ([employer]). RADIATION OPTIMIZATION: All CT scans at this facility use at least one of these dose optimization te chniques: automated exposure control; mA and/or kV adjustment per patient size (includes targeted exa ms where dose is matched to clinical indication); or iterative reconstruction.
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
--- OUTSIDE RECORDS SUMMARY | 2020-11-24 09:16 | XMS_ITS ---
:1965 Author Care Team Providers Name Role Phone [facility] Primary Care Provider [phone] Allergies None recorded. Medications Name Status Start Date Stop Date ? ? albuterol sulf 90 mcg/actuation breath activated powder inhaler, sensor Active ? Not available Inhale 2 puffs every 4 hours by inhalation route. Anoro Ellipta 62.5 mcg-25 mcg/actuation powder for inhalation Ac tive ? Not available Inhale 1 puff every day by inhalation route. fluticasone 100 mcg-salmeterol 50 mcg/dose blistr powdr for inha lation Active ? Not available Inhale 1 puff twice a day by inhalation route. furosemide 40 mg tablet Active ? Not avai lable Take 1 tablet every day by oral route. gabapentin 600 mg tablet Active ? Not mona ilable Take 1 tablet 3 times a day by oral route. Levaquin 500 mg tablet Active ? Not avail able Take 1 tablet every 24 hours by oral route. levothyroxine 25 mcg tablet Active ? Not available Take 1 tablet every day by oral route. loratadine 10 mg capsule Active ? Not mona ilable Take by oral route. Mucinex Active ? Not available omeprazole 20 mg capsule,delayed release Active ? Not available Take 1 capsule every day by oral route. prednisone 10 mg tablet Active ? Not avai lable Take 1 tablet every day by oral route. Spiriva Respimat 2.5 mcg/actuation solution for inhalation Compl eted ? 10/08/2020 Inhale 2 puffs every day by inhalation route. Striverdi Respimat 2.5 mcg/actuation solution for inhalation Act dexter ? Not available Inhale 2 puffs every day by inhalation route. theophylline ER 400 mg capsule,extended release 24 hr Active ? Not available Take 1 capsule every day by oral route. tramadol 50 mg tablet Active ? Not availa ble Take 1 tablet every 6 hours by oral route. Trelegy Ellipta 100 mcg-62.5 mcg-25 mcg powder for inhalation Ac tive ? Not available Inhale 1 puff every day by inhalation route. Trelegy Ellipta 200 mcg-62.5 mcg-25 mcg powder for inhalation Ac tive ? Not available Inhale 1 puff every day by inhalation route. Problems Name Status Onset Date Source ? Chronic Obstructive Lung Disease Active 09/24/2020 ? Procedures Date Name Performed by ? 09/24/2020 CT, Chest, W/o Contrast Xray [facility] [address] [place], [place] [address] (Work Place) Results Lab Results None recorded. Past Encounters 10/08/2020 Chronic Obstructive Lung Disease Mehnaz De La O MD: [address] [place] [address] Dr dexter Bolaños , [place] [phone], Ph. 09/24/2020 Chronic Obstructive Lung Disease Mehnaz De La O MD: [address] [place] [address] Dr dexter Bolaños , [place] [phone], Ph. Social History Tobacco Smoking Status Former Smoker (1 1/2 PPD) Notes: q uit 2004 Vaccine List Vaccine Type influenza, injectable, quadrivalent, pre servative free 10/08/2020?0.5 mL Plan of Care Reminders Provider Appointments None ? ? recorded. Lab None ? ? recorded. Referral None ? ? recorded. Procedures None ? ? recorded. Surgeries None ? ? recorded. Imaging None ? ? recorded. Vitals 10/08/2020 11:30AM Office 30 Height Weight BMI Blood Pressure 176.53 cm 91.7 kg 29.4 kg/m2 151/90 mm[Hg] 09/24/2020 02:45PM Office 15 Height Weight BMI Blood Pressure 176.53 cm 90.6 kg 29.1 kg/m2 138/78 mm[Hg]
[2020-11-24 09:28] LABS: Abs Immature Grans 0.02 10^3/uL (0.0-0.06); Absolute Basophil Count 0.01 10^3/uL (0.0-0.2); Absolute Eosinophil Count 0.03 10^3/uL (0.0-0.7); Absolute Lymphocyte Count 0.81 10^3/uL (1.2-3.4); Absolute Monocyte Count 0.27 10^3/uL (0.1-0.8); Absolute Neutrophil Count 4.91 10^3/uL (1.2-6.7); Basophils % 0.2; Eosinophils % 0.5; HCT 47.8 % (40.0-50.0); HGB 16.1 g/dL (13.5-17.5); Immature Grans % 0.3; Lymphocytes % 13.4; MCH 29.8 pg (27.0-33.0); MCHC 33.7 % (32.0-36.0); MCV 88.5 fL (80-95); MPV 10.2 fL (8.0-11.0); Monocytes % 4.5; Neutrophils % 81.1; Nucleated RBC 0 %; Platelet Count 209 10^3/uL (130-400); RDW 12.2 % (11.8-14.1); RDW-SD 39.5 fL; WBC 6.05 10^3/uL (4.4-10.8)
[2020-11-24 09:54] LABS: ALT 49 U/L (16-63); AST 51 U/L (15-37); Albumin 3.4 g/dL (3.4-5.0); Alkaline Phosphatase 83 U/L (46-116); Anion Gap 10.8 mmol/L (3-11); BUN 9 mg/dL (7-18); Bilirubin, Total 0.5 mg/dL (0.2-1.0); CO2 30.2 mmol/L (21.0-32.0); CREATININE 1.12 mg/dL (0.70-1.30); Calcium 9.2 mg/dL (8.5-10.1); Chloride 96 mmol/L (98-107); Glucose 146 mg/dL (74-106); Sodium 137 mmol/L (136-145); Total Protein 7.6 g/dL (6.4-8.2)
[2020-11-24 09:59] LABS: Potassium 2.9 mmol/L (3.5-5.1); Troponin I < 0.05 ng/mL (<0.06)
[2020-11-24] MEDS: POTASSIUM CHLORIDE 20 MEQ/100 ML BAG 50 MEQ IVPB (10:14)
[2020-11-24] MEDS: Normal Saline 1,000 ML 125 ML IV (10:19)
[2020-11-24] MEDS: Potassium Chloride 20 MEQ TABCR 40 MEQ PO (10:20)
[2020-11-24] MEDS: Omnipaque 350 MG/ML 100 ML BTL IJ (11:08)
[2020-11-24 12:51] LABS: Anion Gap 8.3 mmol/L (3-11); BUN 8 mg/dL (7-18); CO2 29.7 mmol/L (21.0-32.0); Calcium 8.5 mg/dL (8.5-10.1); Chloride 100 mmol/L (98-107); Glucose 102 mg/dL (74-106); Potassium 3.6 mmol/L (3.5-5.1); Sodium 138 mmol/L (136-145)
--- NOTE | 2020-11-24 13:11 | ED.GENADUL_ITS ---
Discharge Plan Disposition Patient Disposition: HOME Condition: Stable Discharge Details Clinical Impression: Vasovagal episode, Acute hypokalemia Primary Care Provider: Rashawn Francisco ED Provider: Low Mccartney Home Meds and New Rx's Prescriptions: Continued gabapentin 600 mg tablet 600 mg PO BID RF: 0 furosemide 40 mg tablet 40 mg PO DAILY RF: 0 omeprazole 20 mg capsule,delayed release(DR/EC) 20 mg PO DAILY RF: 0 Trelegy Ellipta 200-62.5-25 mcg Blister With Device 1 inh INHALATION DAILY RF: 0 albuterol sulfate 2.5 mg /3 mL (0.083 %) Solution For Nebulization 2.5 mg inhalation QID PRN PRNRF: 0 theophylline 400 mg Tablet Extended Release 400 mg PO BID RF: 0 levothyroxine [Synthroid] 25 MCG tablet 1 tab PO DAILY RF: 0 albuterol sulfate [ProAir HFA] 200 PUFF HFA aerosol inhaler 2 puff Inhalation PRNRF: 0 loratadine [Claritin] 10 mg Tablet 10 mg PO DAILY RF: 0 guaifenesin [Mucinex] 600 mg Tablet Extended Release 12hr 600 mg PO BID RF: 0 Discharge Instructions Instructions: Hypokalemia (ED), Syncope (ED) Additional Instructions: Please contact your primary care physician to arrange follow-up. Call to schedule appointment. Return to the ER for any worsening or new concerning symptoms. Referrals: Rashawn Francisco MD [Primary Care Provider] - Medical Decision Making 55-year-old male with COPD recently diagnosed with Covid, here at antibody infusion and having IV placed when he had syncopal episode. Patient arrived somewhat tachycardic after having his albuterol inhaler. He is no longer tachycardic. Blood pressure is normal. Patient saturating in the low 90s. Patient did have some chest discomfort during so that is now resolved. Consider ACS. Screening ECG was reviewed and interpreted by me: Sinus rhythm 96 bpm, normal axis, no STEMI, nondiagnostic. Initial troponin negative. Plan for delta troponin. Patient is at increased risk of pulmonary embolism. Considered PE. CT of the chest with contrast was reviewed and interpreted by radiology: No pulmonary embolism, emphysematous changes with bilateral infiltrates consistent with Covid disease. Plan will be for outpatient follow-up with PCP. I do think he is safe for antibody infusion. HPI General Mode of arrival: EMS . Date/Time Provider Initiated Documentation: 11/24/20 08:53 . Limitations to Documentation: no limitations . Information obtained by: patient . HPI Narrative: 55-year-old male with history of COPD, recently diagnosed with Covid, was at outpatient antibody infusion and having IV placed and had syncope. Patient notes IV access was being attempted and hurt and he suddenly felt dizzy and had a brief episode of near loss of consciousness. Symptoms were moderate to severe. No modifiers. He did have some associated chest burning. Patient states now feels fine. No chest discomfort. No leg swelling or calf pain. Patient does have diffuse body arthralgias from Covid. Related Data Home Medications Medication Instructions Recorded Confirmed albuterol sulfate [ProAir HFA] 2 puff INHALATION PRN 07/31/17 levothyroxine [Synthroid] 1 tab PO DAILY 07/31/17 11/24/20 guaifenesin [Mucinex] 600 mg PO BID 05/23/20 11/24/20 loratadine [Claritin] 10 mg PO DAILY 05/23/20 11/24/20 furosemide 40 mg tablet 40 mg PO DAILY 07/02/20 11/24/20 gabapentin 600 mg tablet 600 mg PO BID tab 07/02/20 11/24/20 omeprazole 20 mg capsule,delayed 20 mg PO DAILY 07/02/20 11/24/20 release Trelegy Ellipta 1 inh INHALATION DAILY 11/11/20 11/24/20 albuterol sulfate 2.5 mg INHALATION QID PRN PRN 11/11/20 11/24/20 theophylline 400 mg PO BID 11/24/20 11/24/20 Allergies Allergy/AdvReac Type Severity Reaction Status Date / Time pineapple Allergy Severe Anaphylaxsi Unverified 11/24/20 08:54 s lysol Allergy Severe Anaphylaxsi Uncoded 11/24/20 08:54 s General Stated Complaint: [facility] BRUCE: 3 Review of Systems All systems reviewed & are unremarkable except as noted in HPI and below Constitutional Constitutional: Reports body ache(s) and Reports fever(s) Cardiovascular Cardiovascular: Reports as per HPI [facility] Medical History Acid reflux COPD (chronic obstructive pulmonary disease) Granulomatous lung disease Hypothyroidism Multiple nodules of lung Restless leg syndrome Social History Smoking/Tobacco Use Status: Former Tobacco Use Smoking risk assessment performed?: Yes Alcohol Intake: never Drug use: Never Substance use type: does not use Do you feel safe at home: Yes Do you feel safe in your relationship?: Yes Exam Const General: cooperative and no acute distress HENMT Head: atraumatic Mouth: moist mucous membranes Eyes Conjunctivae: normal conjunctivae Sclera: normal sclerae Neck Neck: trachea midline and supple Resp Auscultation: clear to auscultation bilaterally, no rales, no rhonchi and no wheezes Cardio Rate: regular rate and not tachycardic Rhythm: regular rhythm GI Palpation: soft, not firm, no guarding, no masses, not rigid and nontender Skin General skin exam: no rashes or lesions noted Neuro General: patient alert, patient awake, patient oriented x3 and tone normal Extrem General: no edema Psych Appearance: grossly normal Mental Status: mental status grossly normal Course Vital Signs Vital signs: Vital Signs Temperature 36.5 C 11/24/20 08:46 Pulse 106 H 11/24/20 08:46 Respiratory Rate 19 11/24/20 08:46 Blood Pressure 131/82 11/24/20 08:46 Pulse Oximetry 92 11/24/20 08:46 Temperature 36.5 C 11/24/20 08:46 Temperature Source Temporal Artery Scan 11/24/20 08:46 Pulse 93 H 11/24/20 10:46 Pulse 113 H 11/24/20 12:40 Respiratory Rate 21 11/24/20 12:40 Respiratory Effort Non-Labored 11/24/20 09:20 Respiratory Depth Normal 11/24/20 09:20 Respiratory Pattern Normal 11/24/20 09:20 Blood Pressure 105/68 11/24/20 10:46 Blood Pressure Mean 77 11/24/20 10:46 Blood Pressure Position Sitting 11/24/20 08:46 Pulse Oximetry 87 L 11/24/20 12:40 Oxygen Delivery Method Room Air 11/24/20 08:46 Oxygen Flow Rate 0 11/24/20 08:46 Lab/Test Results Lab/Test Results: Laboratory Tests Range/Units 11/24/20 11/24/20 11/24/20 09:00 09:00 09:00 WBC (4.4-10.8) 10^3/uL 6.05 RBC (4.36-5.78) 10^6/uL 5.40 Hgb (13.5-17.5) g/dL 16.1 Hct (40.0-50.0) % 47.8 MCV (80-95) fL 88.5 MCH (27.0-33.0) pg 29.8 MCHC (32.0-36.0) % 33.7 RDW (11.8-14.1) % 12.2 Plt Count (130-400) 10^3/uL 209 MPV (8.0-11.0) fL 10.2 Immature Gran % 0.3 Neutrophils % 81.1 Lymphocytes % 13.4 Monocytes % 4.5 Eosinophils % 0.5 Basophils % 0.2 Nucleated RBC % % 0 Absolute Neutrophils (1.2-6.7) 10^3/uL 4.91 Absolute Lymphocytes (1.2-3.4) 10^3/uL 0.81 L Absolute Monocytes (0.1-0.8) 10^3/uL 0.27 Absolute Eosinophils (0.0-0.7) 10^3/uL 0.03 Absolute Basophils (0.0-0.2) 10^3/uL 0.01 Sodium (136-145) mmol/L 137 Potassium (3.5-5.1) mmol/L 2.9 L* Chloride (98-107) mmol/L 96 L Carbon Dioxide (21.0-32.0) mmol/L 30.2 Anion Gap (3-11) mmol/L 10.8 BUN (7-18) mg/dL 9 Creatinine (0.70-1.30) mg/dL 1.12 Estimated GFR/1.73 m2 (mL/min/1.73m2) >= 60.00 Glucose (74-106) mg/dL 146 H Calcium (8.5-10.1) mg/dL 9.2 Magnesium (1.8-2.4) mg/dL 2.0 Total Bilirubin (0.2-1.0) mg/dL 0.5 AST (15-37) U/L 51 H ALT (16-63) U/L 49 Alkaline Phosphatase (46-116) U/L 83 Troponin I (<0.06) ng/mL < 0.05 Total Protein (6.4-8.2) g/dL 7.6 Albumin (3.4-5.0) g/dL 3.4 Range/Units 11/24/20 12:23 WBC (4.4-10.8) 10^3/uL RBC (4.36-5.78) 10^6/uL Hgb (13.5-17.5) g/dL Hct (40.0-50.0) % MCV (80-95) fL MCH (27.0-33.0) pg MCHC (32.0-36.0) % RDW (11.8-14.1) % Plt Count (130-400) 10^3/uL MPV (8.0-11.0) fL Immature Gran % Neutrophils % Lymphocytes % Monocytes % Eosinophils % Basophils % Nucleated RBC % % Absolute Neutrophils (1.2-6.7) 10^3/uL Absolute Lymphocytes (1.2-3.4) 10^3/uL Absolute Monocytes (0.1-0.8) 10^3/uL Absolute Eosinophils (0.0-0.7) 10^3/uL Absolute Basophils (0.0-0.2) 10^3/uL Sodium (136-145) mmol/L 138 Potassium (3.5-5.1) mmol/L 3.6 D Chloride (98-107) mmol/L 100 Carbon Dioxide (21.0-32.0) mmol/L 29.7 Anion Gap (3-11) mmol/L 8.3 BUN (7-18) mg/dL 8 Creatinine (0.70-1.30) mg/dL 1.00 Estimated GFR/1.73 m2 (mL/min/1.73m2) >= 60.00 Glucose (74-106) mg/dL 102 Calcium (8.5-10.1) mg/dL 8.5 Magnesium (1.8-2.4) mg/dL Total Bilirubin (0.2-1.0) mg/dL AST (15-37) U/L ALT (16-63) U/L Alkaline Phosphatase (46-116) U/L Troponin I (<0.06) ng/mL Total Protein (6.4-8.2) g/dL Albumin (3.4-5.0) g/dL
[2020-11-24 13:18] LABS: Troponin I < 0.05 ng/mL (<0.06)
== END 2020-11-24 14:19 | disposition home or self-care (01) ==
PROVIDERS: Emergency Provider Student in an Organized Health Care Education/Training Program; PCP Internal Medicine
DX: U07.1 COVID-19 (principal); E87.6 Hypokalemia; R55 Syncope and collapse; R07.89 Other chest pain; J44.9 Chronic obstructive pulmonary disease, unspecified; Z87.891 Personal history of nicotine dependence
CPT/HCPCS: 71275; 80048; 80053; 93005; 96361; 96365; 96366; 99285; 83735; 84484; 85025; 93010; 99284; J3480; J3490

== ENCOUNTER 2020-11-25 00:21 | Outpatient (CLI) | payer MEDICAID, SELFPAY ==
[2020-11-25 12:29] VITALS: BP 138/88; PULSE 117; RESP 16; TEMP 37.8; O2SAT 91
[2020-11-25] MEDS: Normal Saline 500 ML 30 ML IV (13:09)
[2020-11-25] MEDS: Normal Saline Flush 10 ML SYR IVP (13:09)
[2020-11-25 13:20] VITALS: BP 109/73; PULSE 103; RESP 18; TEMP 36.9; O2SAT 94
[2020-11-25 13:50] VITALS: BP 102/75; PULSE 91; RESP 20; TEMP 36.6; O2SAT 93
[2020-11-25 14:28] VITALS: BP 144/84; PULSE 101; RESP 18; TEMP 36.8; O2SAT 92
[2020-11-25 14:55] VITALS: BP 126/81; PULSE 99; RESP 18; TEMP 36.7; O2SAT 93
[2020-11-25 15:24] VITALS: BP 122/84; PULSE 95; RESP 16; TEMP 36.9; O2SAT 92
== END 2020-11-25 00:41 ==
PROVIDERS: PCP Internal Medicine; Visit Provider Family Medicine
DX: U07.1 COVID-19 (principal)
CPT/HCPCS: 96365

== ENCOUNTER 2020-12-03 18:02 | Outpatient (REF) | payer MEDICAID, SELFPAY ==
[2020-12-03 21:20] LABS: Potassium 4.1 mmol/L (3.5-5.1)
== END 2020-12-03 18:22 ==
LOC: NCHCN 18:02
PROVIDERS: PCP Internal Medicine; Visit Provider Internal Medicine
DX: J44.9 Chronic obstructive pulmonary disease, unspecified (principal); E87.6 Hypokalemia; R09.02 Hypoxemia
CPT/HCPCS: 84132

== ENCOUNTER 2020-12-08 14:26 | Emergency (ER) | payer MEDICAID, SELFPAY ==
[2020-12-08] VITALS (54 sets, daily range): BP systolic 103–133; BP diastolic 66–92; PULSE 66–104; RESP 9–21; TEMP 36.3–36.5; O2SAT 92–98
--- NOTE | 2020-12-08 14:00 | RT.EKG_ITS ---
APPROVED REPORT Exam: Resting ECG Patient Location: E HR:90 bpm ECG Measurements Heart Rate 90 AXIS NV 149 P 87 QRSd 78 QRS 3 QT 319 T 71 QTc 390 Conclusion Sinus rhythm...normal P axis, V-rate 60- 99 I have reviewed and interpreted ECG and agree with software generated interpretation.
[2020-12-08] MEDS: Normal Saline 1,000 ML 1000 ML IV (15:42)
[2020-12-08] MEDS: ACETAMINOPHEN 1,000 MG/100 ML BTL 400 MG IVPB (15:42)
[2020-12-08] MEDS: Ketorolac 30 MG/ML VIAL IVP (15:42)
[2020-12-08 15:57] LABS: Abs Immature Grans 0.02 10^3/uL (0.0-0.06); Absolute Basophil Count 0.04 10^3/uL (0.0-0.2); Absolute Eosinophil Count 0.01 10^3/uL (0.0-0.7); Absolute Lymphocyte Count 0.89 10^3/uL (1.2-3.4); Absolute Monocyte Count 0.39 10^3/uL (0.1-0.8); Absolute Neutrophil Count 6.52 10^3/uL (1.2-6.7); Basophils % 0.5; Eosinophils % 0.1; HCT 47.3 % (40.0-50.0); HGB 15.4 g/dL (13.5-17.5); Immature Grans % 0.3; Lymphocytes % 11.3; MCH 29.3 pg (27.0-33.0); MCHC 32.6 % (32.0-36.0); MCV 90.1 fL (80-95); MPV 9.5 fL (8.0-11.0); Neutrophils % 82.8; Nucleated RBC 0 %; Platelet Count 378 10^3/uL (130-400); RBC 5.25 10^6/uL (4.36-5.78); RDW 12.5 % (11.8-14.1); WBC 7.87 10^3/uL (4.4-10.8)
[2020-12-08 16:11] LABS: PTT Activated 24.4 sec (21.0-27.5); Prothrombin Time 10.2 sec (9.3-11.0)
--- NOTE | 2020-12-08 16:15 | DI.RAD_ITS ---
EXAM: XR PORTABLE CHEST AP CLINICAL HISTORY: cough, tachycardia, r/o acute disease TECHNIQUE: 2D digital imaging was performed. COMPARISON: CR,XR XR PORTABLE CHEST AP from 05/23/[address] CHEST WO from 10/01/2020 FINDINGS: MEDIASTINUM: Findings of prior granulomatous disease are seen with calcified hilar lymph nodes and ca lcified granulomas in the left lung. HEART: Normal. PULMONARY VASCULATURE: Normal. LUNGS: The lungs are hyperinflated consistent with underlying COPD. There are bilateral basilar infi ltrates right greater than left. PLEURAL SPACE: No pleural effusion or pneumothorax. BONE:Within normal limits for the patient's age. OTHER FINDINGS:Normal. IMPRESSION: Bilateral basilar infiltrates. Pneumonia cannot be excluded. Please correlate clinically. DATA REPOSITORY: RADIATION DOSE DELIVERED:
[2020-12-08 16:20] LABS: ALT 14 U/L (16-63); AST 9 U/L (15-37); Albumin 3.8 g/dL (3.4-5.0); Alkaline Phosphatase 96 U/L (46-116); BUN 9 mg/dL (7-18); Bilirubin, Total 0.5 mg/dL (0.2-1.0); CREATININE 0.99 mg/dL (0.70-1.30); Calcium 9.5 mg/dL (8.5-10.1); Chloride 103 mmol/L (98-107); Glucose 111 mg/dL (74-106); Magnesium 2.3 mg/dL (1.8-2.4); Potassium 4.3 mmol/L (3.5-5.1); Sodium 138 mmol/L (136-145); Total Protein 7.7 g/dL (6.4-8.2)
[2020-12-08 16:21] LABS: Troponin I < 0.05 ng/mL (<0.06)
--- NOTE | 2020-12-08 17:04 | DI.VRAD_ITS ---
PROCEDURE INFORMATION: Exam: XR Chest, 1 View Exam date and time: 12/08/2020 4:21 PM Age: 55 years old Clinical indication: Cough and other: Tachycardia TECHNIQUE: Imaging protocol: XR of the chest Views: 1 view. COMPARISON: CT CHEST WO 01/10/2020 14:29 FINDINGS: Lungs: Calcified left hilar lymph nodes. Calcified granulomas in the left base. Bibasilar infiltrates. Emphysematous lung disease. Pleural space: Unremarkable. No pleural effusion. No pneumothorax. Heart/Mediastinum: Unremarkable. No cardiomegaly. Bones/joints: Unremarkable for patient's age. IMPRESSION: 1. Bibasilar infiltrates. 2. Emphysematous lung disease. 3. Sequela of prior granulomatous disease. Dictated and Authenticated by: Enid Reyes MD. Ordering:JAYLEN Rowell MD
--- NOTE | 2020-12-08 17:34 | ED.GENADUL_ITS ---
Discharge Plan Disposition Patient Disposition: HOME Condition: Stable Discharge Details Clinical Impression: Pneumonia, Hypoxia, Headache, History of COVID-19 Primary Care Provider: Rashawn Francisco ED Provider: Lelia Cerda Home Meds and New Rx's Prescriptions: New amoxicillin-pot clavulanate [Augmentin] 875-125 mg tablet 1 tab PO BID 10 Days Qty: 20 RF: 0 Continued gabapentin 600 mg tablet 600 mg PO BID RF: 0 furosemide 40 mg tablet 40 mg PO DAILY RF: 0 omeprazole 20 mg capsule,delayed release(DR/EC) 20 mg PO DAILY RF: 0 Trelegy Ellipta 200-62.5-25 mcg Blister With Device 1 inh INHALATION DAILY RF: 0 albuterol sulfate 2.5 mg /3 mL (0.083 %) Solution For Nebulization 2.5 mg inhalation QID PRN PRNRF: 0 theophylline 400 mg Tablet Extended Release 400 mg PO BID RF: 0 levothyroxine [Synthroid] 25 MCG tablet 1 tab PO DAILY RF: 0 albuterol sulfate [ProAir HFA] 200 PUFF HFA aerosol inhaler 2 puff Inhalation PRNRF: 0 loratadine [Claritin] 10 mg Tablet 10 mg PO DAILY RF: 0 guaifenesin [Mucinex] 600 mg Tablet Extended Release 12hr 600 mg PO BID RF: 0 Discharge Instructions Instructions: Pneumonia (ED), General Headache (ED) Additional Instructions: Drink plenty of fluids and get plenty of rest. Alternate tylenol and motrin as needed and directed for pain. Take the antibiotics until finished. Use your albuterol inhaler as needed and directed for shortness of breath or cough. Continue to use your nasal cannula oxygen at home as needed when your oxygen drops low. Follow-up with your primary care doctor in 1 week. Return the rubber cutting machine tender to the hospital as directed by respiratory. Return to the emergency department with any worsening or new concerning symptoms. Discharge Data Discharge Physician: Lelia Cerda Medical Decision Making 55-year-old male with a history of COPD on nasal cannula oxygen as needed for his recent diagnosis of Covid, and hypothyroidism who presents for headache, fatigue, tachycardia and hypoxia today at home. He states his heart rate was 150s and oxygen saturation mid 80s with minimal exertion at home today. EKG on arrival notes a rate of 90, sinus, no acute ST elevation or depression. Oxygen saturation here are 94 to 95% on room air. He has normal respiratory rate and he is afebrile. His symptoms could be expected complications of Covid as he was just diagnosed 2-1/2 weeks ago. History and presentation does not appear consistent with PE as his symptoms only occur with exertion His heart rate has remained within normal limits while at rest. He had a CT chest less than 2 weeks ago which was negative for PE. Patient was given IV Tylenol, Toradol and fluids and his symptoms significantly improved. Heart rate 70s, oxygen saturation 95% on room air. Chest x-ray noted bibasilar infiltrates. CT chest also noted bibasilar infiltrates but negative for PE. Will treat for possible pneumonia. We will also send with a rubber cutting machine tender. Patient given a dose of Augmentin here as well as for home. Advised to call Dr. Francisco tomorrow for follow-up within the next week. Usual and customary return precautions given prior to discharge. Medical Records Medical records reviewed: Yes I reviewed the patient's medical records. Imaging Data Radiologic Study: Radiologist's impression: XR Chest, 1 View Exam date and time: 12/08/2020 4:21 PM Age: 55 years old Clinical indication: Cough and other: Tachycardia TECHNIQUE: Imaging protocol: XR of the chest Views: 1 view. COMPARISON: CT CHEST WO 01/10/2020 14:29 FINDINGS: Lungs: Calcified left hilar lymph nodes. Calcified granulomas in the left base. Bibasilar infiltrates. Emphysematous lung disease. Pleural space: Unremarkable. No pleural effusion. No pneumothorax. Heart/Mediastinum: Unremarkable. No cardiomegaly. Bones/joints: Unremarkable for patient's age. IMPRESSION: 1. Bibasilar infiltrates. 2. Emphysematous lung disease. 3. Sequela of prior granulomatous disease. CT Angiography Chest With Contrast Exam date and time: 12/08/2020 6:05 PM Age: 55 years old Clinical indication: Other: Tachycardia, hyypoxia TECHNIQUE: Imaging protocol: Computed tomographic angiography of the chest with intravenous contrast. 3D rendering (Not supervised by radiologist): MIP and/or 3D reconstructed images were created by the technologist. Radiation optimization: All CT scans at this facility use at least one of these dose optimization techniques: automated exposure control; mA and/or kV adjustment per patient size (includes targeted exams where dose is matched to clinical indication); or iterative reconstruction. Contrast material: [id number]; Contrast volume: 80 ml; Contrast route: INTRAVENOUS (IV); COMPARISON: CT CHEST PE CTA 04/19/2021 11:08 FINDINGS: Pulmonary arteries: No evidence for pulmonary embolus. Aorta: Unremarkable. No aortic aneurysm. No aortic dissection. Lungs: Emphysematous lung disease. Bibasilar infiltrates. Right upper lobe reticular scarring. Right middle lobe infiltrate. Pleural space: Unremarkable. No pneumothorax. No pleural effusion. Heart: Unremarkable. No cardiomegaly. No pericardial effusion. Lymph nodes: Calcified left hilar lymph nodes and calcified left lung granulomas. Liver: Hepatic granulomas. Spleen: Splenic granulomas. Bones/joints: Unremarkable for age. No acute fracture. Soft tissues: Gynecomastia. IMPRESSION: 1. No evidence for pulmonary embolus. 2. Bibasilar infiltrates. 3. Emphysematous lung disease. 4. Sequela of prior granulomatous disease. 5. Additional findings as discussed above. Lab Data Lab results reviewed: Yes I reviewed the patient's lab results. Labs: Laboratory Tests Range/Units 12/08/20 12/08/20 12/08/20 15:49 15:49 15:49 WBC (4.4-10.8) 10^3/uL 7.87 RBC (4.36-5.78) 10^6/uL 5.25 Hgb (13.5-17.5) g/dL 15.4 Hct (40.0-50.0) % 47.3 MCV (80-95) fL 90.1 MCH (27.0-33.0) pg 29.3 MCHC (32.0-36.0) % 32.6 RDW (11.8-14.1) % 12.5 Plt Count (130-400) 10^3/uL 378 D MPV (8.0-11.0) fL 9.5 Immature Gran % 0.3 Neutrophils % 82.8 Lymphocytes % 11.3 Monocytes % 5.0 Eosinophils % 0.1 Basophils % 0.5 Nucleated RBC % % 0 Absolute Neutrophils (1.2-6.7) 10^3/uL 6.52 Absolute Lymphocytes (1.2-3.4) 10^3/uL 0.89 L Absolute Monocytes (0.1-0.8) 10^3/uL 0.39 Absolute Eosinophils (0.0-0.7) 10^3/uL 0.01 Absolute Basophils (0.0-0.2) 10^3/uL 0.04 PT (9.3-11.0) sec 10.2 INR (0.9-1.1) 1.0 APTT (21.0-27.5) sec 24.4 Sodium (136-145) mmol/L 138 Potassium (3.5-5.1) mmol/L 4.3 Chloride (98-107) mmol/L 103 Carbon Dioxide (21.0-32.0) mmol/L 28.0 Anion Gap (3-11) mmol/L 7.0 BUN (7-18) mg/dL 9 Creatinine (0.70-1.30) mg/dL 0.99 Estimated GFR/1.73 m2 (mL/min/1.73m2) >= 60.00 Glucose (74-106) mg/dL 111 H Calcium (8.5-10.1) mg/dL 9.5 Magnesium (1.8-2.4) mg/dL 2.3 Total Bilirubin (0.2-1.0) mg/dL 0.5 AST (15-37) U/L 9 L ALT (16-63) U/L 14 L Alkaline Phosphatase (46-116) U/L 96 Troponin I (<0.06) ng/mL < 0.05 Total Protein (6.4-8.2) g/dL 7.7 Albumin (3.4-5.0) g/dL 3.8 HPI General Mode of arrival: EMS . Date/Time Provider Initiated Documentation: 12/08/20 14:39 . Limitations to Documentation: no limitations . Information obtained by: patient . HPI Narrative: Patient is a 55-year-old male with a history of COPD, hypothyroidism, who presents for tachycardia and h ypoxia at home today while walking. Patient states he was diagnosed with Covid 2-1/2 weeks ago and had been feeling extremely weak with all the typical Covid symptomsbut states they improved after his antibody infusion last week. Patient states since then he has felt extremely weak and sleeping most of the day but today while he was walking around became significantly tachycardic and hypoxic with minimal activity. He states his heart rate was as high as 150s and oxygen level dropped to low to mid 80s. Patient states he was on nasal cannula oxygen for several years due to his COPD but has not been on oxygen since 2014. Since his Covid diagnosis for the past couple weeks, he has been on 2 L of oxygen as needed throughout the day and 4 L of oxygen as needed at night. He denies any fever, vomiting, diarrhea, chest pain, coughing, abdominal pain, neck pain. Related Data Home Medications Medication Instructions Recorded Confirmed albuterol sulfate [ProAir HFA] 2 puff INHALATION PRN 07/31/17 levothyroxine [Synthroid] 1 tab PO DAILY 07/31/17 12/08/20 guaifenesin [Mucinex] 600 mg PO BID 05/23/20 12/08/20 loratadine [Claritin] 10 mg PO DAILY 05/23/20 12/08/20 furosemide 40 mg tablet 40 mg PO DAILY 07/02/20 12/08/20 gabapentin 600 mg tablet 600 mg PO BID tab 07/02/20 12/08/20 omeprazole 20 mg capsule,delayed 20 mg PO DAILY 07/02/20 12/08/20 release Trelegy Ellipta 1 inh INHALATION DAILY 11/11/20 12/08/20 albuterol sulfate 2.5 mg INHALATION QID PRN PRN 11/11/20 11/25/20 theophylline 400 mg PO BID 11/24/20 12/08/20 amoxicillin-pot clavulanate 1 tab PO BID 10 Days #20 tab 12/08/20 [Augmentin] Previous Rx's Medication Instructions Recorded amoxicillin-pot clavulanate 1 tab PO BID 10 Days #20 tab 12/08/20 [Augmentin] Allergies Allergy/AdvReac Type Severity Reaction Status Date / Time pineapple Allergy Severe Anaphylaxsi Unverified 12/08/20 15:48 s lysol Allergy Severe Anaphylaxsi Uncoded 12/08/20 15:48 s General Stated Complaint: GenMedical BRUCE: 3 Review of Systems All systems reviewed & are unremarkable except as noted in HPI and below Constitutional Constitutional: Reports as per HPI, Denies chills and Denies fever(s) Eyes Eyes: Denies blurry vision ENT Ears, Nose, Mouth, and Throat: Denies dizziness, Denies sore throat and Denies throat swelling Cardiovascular Cardiovascular: Denies chest pain, Reports rapid heart rate and Denies dyspnea Respiratory Respiratory: Denies cough and Denies dyspnea Gastrointestinal Gastrointestinal: Denies abdominal pain, Denies diarrhea and Denies vomiting Genitourinary Genitourinary: Denies hematuria and Denies dysuria Musculoskeletal Musculoskeletal: Denies back pain and Denies numbness Integumentary/Breasts Skin/Breast: Denies lesions and Denies rash Neurologic Neurologic: Denies dizziness, Denies localized weakness and Denies numbness Allergic/Immunologic Allergic/Immunologic: Denies throat swelling FORMERLY [facility], 1928–1983 Medical History Acid reflux COPD (chronic obstructive pulmonary disease) Granulomatous lung disease Hypothyroidism Multiple nodules of lung Restless leg syndrome Social History Smoking/Tobacco Use Status: Former Tobacco Use Smoking risk assessment performed?: Yes Alcohol Intake: never Drug use: Never Substance use type: does not use Do you feel safe at home: Yes Do you feel safe in your relationship?: Yes Exam Const General: cooperative, healthy appearing and no acute distress HENMT Head: normal to inspection Face and sinus: normal facial exam Eyes General: appearance normal, both eyes and all related structures EOM: EOM intact bilaterally Neck Neck: normal visual inspection and No submandibular swelling Lymphatic: no lymphadenopathy noted Chest Chest: normal inspection of the chest and no tenderness Resp Effort & Inspection: normal respiratory effort and able to speak in complete sentences Auscultation: diminished lung sounds bilaterally in the lower lung peterson Cardio Rate: regular rate Rhythm: regular rhythm GI Inspection: normal to inspection Palpation: soft, not firm, not rigid and nontender Auscultation: normal bowel sounds Skin General skin exam: no rashes or lesions noted Neuro General: patient alert, patient awake and patient oriented x3 Cranial Nerves: CN's II-XI intact bilaterally Cognition: normal cognition Speech: speech normal Motor: muscle tone normal throughout Sensory Exam: no sensory deficits noted Extrem General: normal to inspection, full ROM, capillary refill normal, no calf tenderness bilaterally and no edema Psych Appearance: grossly normal Mental Status: mental status grossly normal Speech and Movement: speech and movement normal Affect: normal affect Course Vital Signs Vital signs: Vital Signs Temperature 97.7 F 12/08/20 14:26 Pulse 99 H 12/08/20 14:26 Respiratory Rate 16 12/08/20 14:26 Blood Pressure 114/89 12/08/20 14:26 Pulse Oximetry 94 12/08/20 14:26 Temperature 97.7 F 12/08/20 14:26 Temperature Source Temporal Artery Scan 12/08/20 14:26 Pulse 74 12/08/20 16:00 Pulse 86 12/08/20 16:01 Respiratory Rate 16 12/08/20 16:01 Respiratory Effort Non-Labored 12/08/20 15:45 Respiratory Depth Normal 12/08/20 15:45 Respiratory Pattern Normal 12/08/20 15:45 Blood Pressure 104/71 12/08/20 16:00 Blood Pressure Mean 79 12/08/20 16:00 Pulse Oximetry 95 12/08/20 16:01 Oxygen Delivery Method Room Air 12/08/20 14:26 Oxygen Flow Rate 0 12/08/20 14:26 Pain Level 4 12/08/20 14:26 Lab/Test Results Lab/Test Results: Laboratory Tests Range/Units 12/08/20 12/08/20 12/08/20 15:49 15:49 15:49 WBC (4.4-10.8) 10^3/uL 7.87 RBC (4.36-5.78) 10^6/uL 5.25 Hgb (13.5-17.5) g/dL 15.4 Hct (40.0-50.0) % 47.3 MCV (80-95) fL 90.1 MCH (27.0-33.0) pg 29.3 MCHC (32.0-36.0) % 32.6 RDW (11.8-14.1) % 12.5 Plt Count (130-400) 10^3/uL 378 D MPV (8.0-11.0) fL 9.5 Immature Gran % 0.3 Neutrophils % 82.8 Lymphocytes % 11.3 Monocytes % 5.0 Eosinophils % 0.1 Basophils % 0.5 Nucleated RBC % % 0 Absolute Neutrophils (1.2-6.7) 10^3/uL 6.52 Absolute Lymphocytes (1.2-3.4) 10^3/uL 0.89 L Absolute Monocytes (0.1-0.8) 10^3/uL 0.39 Absolute Eosinophils (0.0-0.7) 10^3/uL 0.01 Absolute Basophils (0.0-0.2) 10^3/uL 0.04 PT (9.3-11.0) sec 10.2 INR (0.9-1.1) 1.0 APTT (21.0-27.5) sec 24.4 Sodium (136-145) mmol/L 138 Potassium (3.5-5.1) mmol/L 4.3 Chloride (98-107) mmol/L 103 Carbon Dioxide (21.0-32.0) mmol/L 28.0 Anion Gap (3-11) mmol/L 7.0 BUN (7-18) mg/dL 9 Creatinine (0.70-1.30) mg/dL 0.99 Estimated GFR/1.73 m2 (mL/min/1.73m2) >= 60.00 Glucose (74-106) mg/dL 111 H Calcium (8.5-10.1) mg/dL 9.5 Magnesium (1.8-2.4) mg/dL 2.3 Total Bilirubin (0.2-1.0) mg/dL 0.5 AST (15-37) U/L 9 L ALT (16-63) U/L 14 L Alkaline Phosphatase (46-116) U/L 96 Troponin I (<0.06) ng/mL < 0.05 Total Protein (6.4-8.2) g/dL 7.7 Albumin (3.4-5.0) g/dL 3.8
[2020-12-08] MEDS: Amoxicillin 875/Clav. 125 TAB PO (18:49)
[2020-12-08] MEDS: Amox. 875/Clav. 125, 2 TABS/BTL 1 TAB PO (18:49)
[2020-12-08] MEDS: Normal Saline Flush 10 ML SYR IVP (19:24)
[2020-12-08] MEDS: Normal Saline - Diluent 50 ML VIAL IV (19:24)
[2020-12-08] MEDS: Omnipaque 350 MG/ML 100 ML BTL IJ (19:25)
--- NOTE | 2020-12-08 19:27 | DI.CT_ITS ---
EXAM: CT CHEST PE CTA CLINICAL HISTORY: tachycardia, hypoxia, r/o PE. TECHNIQUE: Imaging Protocol: Axial CT angiography was performed with multi-slice acquisition and mu lti-planar and/or 3D reconstructions. CONTRAST MATERIAL: Intravenous: Omnipaque 350 Contrast volume:structured data in ml COMPARISON: CT CT CHEST PE CTA from 11/24/[address] CHEST PE CTA from 11/24/2020 FINDINGS: Tracheobronchial tree: Patent where visualized. Pulmonary parenchyma: No consolidation or dominant measurable mass. Pulmonary emphysematous changes a re seen in the lungs. Unchanged infiltrates are seen in the right middle lobe and both lower lobes. Pulmonary Arteries: No evidence of filling defect to suggest pulmonary emboli. Mediastinum and Maxine: No dominant adenopathy or fluid collection. Calcified mediastinal lymph nodes a nd calcified pulmonary nodules in the left lung consistent with prior granulomatous disease. Visualized thyroid gland: Unremarkable. Pleura: No effusion or pneumothorax. Heart: The heart is not dilated. No coronary artery calcifications are seen. No pericardial effusion. Aorta: Thoracic aorta non-dilated. Atherosclerosis. Upper abdomen: Hepatic and splenic granuloma. Soft tissues: Bilateral gynecomastia. Bones: Normal. IMPRESSION: 1. No evidence of pulmonary embolism, thoracic aortic dissection or aneurysm. 2. Sequelae of prior granulomatous disease. 3. Right middle lobe and bilateral basilar infiltrates. 4. Pulmonary emphysema. RADIATION DOSE DELIVERED: 492.15mGy.cm Total DLP DATA REPOSITORY: All CT scans at this facility are submitted to the National Radiology Data Registry (NRDR) Dose Index Registry (DIR) with the [employer] (ACR). RADIATION OPTIMIZATION: All CT scans at this facility use at least one of these dose optimization te chniques: automated exposure control; mA and/or kV adjustment per patient size (includes targeted exa ms where dose is matched to clinical indication); or iterative reconstruction.
--- NOTE | 2020-12-08 19:53 | DI.VRAD_ITS ---
PROCEDURE INFORMATION: Exam: CT Angiography Chest With Contrast Exam date and time: 12/08/2020 6:05 PM Age: 55 years old Clinical indication: Other: Tachycardia, hyypoxia TECHNIQUE: Imaging protocol: Computed tomographic angiography of the chest with intravenous contrast. 3D rendering (Not supervised by radiologist): MIP and/or 3D reconstructed images were created by the technologist. Radiation optimization: All CT scans at this facility use at least one of these dose optimization techniques: automated exposure control; mA and/or kV adjustment per patient size (includes targeted exams where dose is matched to clinical indication); or iterative reconstruction. Contrast material: [id number]; Contrast volume: 80 ml; Contrast route: INTRAVENOUS (IV); COMPARISON: CT CHEST PE CTA 04/19/2021 11:08 FINDINGS: Pulmonary arteries: No evidence for pulmonary embolus. Aorta: Unremarkable. No aortic aneurysm. No aortic dissection. Lungs: Emphysematous lung disease. Bibasilar infiltrates. Right upper lobe reticular scarring. Right middle lobe infiltrate. Pleural space: Unremarkable. No pneumothorax. No pleural effusion. Heart: Unremarkable. No cardiomegaly. No pericardial effusion. Lymph nodes: Calcified left hilar lymph nodes and calcified left lung granulomas. Liver: Hepatic granulomas. Spleen: Splenic granulomas. Bones/joints: Unremarkable for age. No acute fracture. Soft tissues: Gynecomastia. IMPRESSION: 1. No evidence for pulmonary embolus. 2. Bibasilar infiltrates. 3. Emphysematous lung disease. 4. Sequela of prior granulomatous disease. 5. Additional findings as discussed above. Dictated and Authenticated by: Enid Reyes MD. Ordering:JAYLEN Rowell MD
== END 2020-12-08 20:26 | disposition home or self-care (01) ==
PROVIDERS: Emergency Provider Physician Assistant; PCP Internal Medicine
DX: R09.02 Hypoxemia (principal); J18.8 Other pneumonia, unspecified organism; R51.9 Headache, unspecified; R00.0 Tachycardia, unspecified; Z86.16 Personal history of COVID-19; J44.9 Chronic obstructive pulmonary disease, unspecified; Z99.81 Dependence on supplemental oxygen
CPT/HCPCS: 36415; 71275; 80053; 93005; 93246; 96361; 96365; 96375; 99285; 71045; 83735; 84484; 85025; 85610; 85730; 93010; J0131; J1885; J3490

== ENCOUNTER 2020-12-14 11:13 | Outpatient (REF) | payer MEDICAID, SELFPAY ==
[2020-12-14 14:35] LABS: FREE T4 1.06 ng/dL (0.76-1.46); TSH 4.01 uIU/mL (0.36-3.74)
[2020-12-14 21:37] LABS: Theophylline 17.4 ug/mL (10.0-20.0)
--- NOTE | 2020-12-30 13:58 | ZIOP_ITS ---
Date of service: 12/30/20 Time of Service: 13:58 14 Day [employer] Referring Provider:: Marce Indications:: Syncope Note: This is a 14-day monitor with indication of syncope. ?The patient was in normal sinus rhythm for the majority of the recording with an average heart rate of 92 bpm ?There were rare PACs and rare PVCs. ?There were six episodes of supraventricular tachycardia with the longest lasting seven beats ?There was one episode of nonsustained ventricular tachycardia which lasted a total of three beats. ?There were no episodes of atrial fibrillation, no pauses greater than 3 seconds and no evidence of high degree heart block. ?There were three patient triggered events associated with sinus rhythm and sinus tachycardia.
== END 2020-12-14 11:33 ==
LOC: NCHCN 11:13
PROVIDERS: PCP Internal Medicine; Visit Provider Internal Medicine
DX: J44.9 Chronic obstructive pulmonary disease, unspecified (principal); R00.0 Tachycardia, unspecified; R53.83 Other fatigue; G25.81 Restless legs syndrome; Z51.81 Encounter for therapeutic drug level monitoring
CPT/HCPCS: 80198; 84439; 84443

== ENCOUNTER 2021-01-03 14:49 | Outpatient (REF) | payer MEDICAID, SELFPAY ==
[2021-01-03 13:29] LABS: Glucose 137 mg/dL (74-106)
[2021-01-03 13:48] LABS: Hemoglobin A1C 6.2 % (<5.7)
== END 2021-01-03 14:50 | disposition home or self-care (01) ==
LOC: NCHCN 14:49
PROVIDERS: PCP Internal Medicine; Visit Provider Internal Medicine
DX: R73.09 Other abnormal glucose (principal); R00.0 Tachycardia, unspecified; J44.9 Chronic obstructive pulmonary disease, unspecified
CPT/HCPCS: 82947; 83036

== ENCOUNTER 2022-06-12 18:02 | Outpatient (REF) | payer MEDICAID, SELFPAY ==
[2022-06-12 19:10] LABS: HCT 46.4 % (40.0-50.0); HGB 15.5 g/dL (13.5-17.5); MCH 28.9 pg (27.0-33.0); MCHC 33.4 % (32.0-36.0); MCV 87 fL (80-95); MPV 9.8 fL (8.0-11.0); Platelet Count 264 10^3/uL (130-400); RBC 5.36 10^6/uL (4.36-5.78); RDW 12.8 % (11.8-14.1); RDW-SD 40.7 fL; WBC 6.89 10^3/uL (4.4-10.8)
[2022-06-12 19:28] LABS: ALT 21 U/L (16-63); AST 19 U/L (15-37); Alkaline Phosphatase 76 U/L (46-116); Anion Gap 9.2 mmol/L (3-11); BUN 13 mg/dL (7-18); Bilirubin, Total 0.6 mg/dL (0.2-1.0); CO2 24.8 mmol/L (21.0-32.0); CREATININE 0.9 mg/dL (0.70-1.30); Calcium 9.7 mg/dL (8.5-10.1); Chloride 107 mmol/L (98-107); Glucose 90 mg/dL (74-106); NT-proBNP 35 pg/mL (<300); Sodium 141 mmol/L (136-145); TSH (W/Ref FT4) 4.59 uIU/mL (0.36-3.74); Total Protein 7.5 g/dL (6.4-8.2)
[2022-06-12 20:13] LABS: FREE T4 0.95 ng/dL (0.76-1.46)
[2022-06-13 18:30] LABS: Theophylline 11.5 ug/mL (10.0-20.0)
== END 2022-06-12 18:03 | disposition home or self-care (01) ==
LOC: NCHCN 18:02
PROVIDERS: PCP Internal Medicine; Visit Provider Family Medicine
DX: E03.9 Hypothyroidism, unspecified (principal); J44.9 Chronic obstructive pulmonary disease, unspecified; R09.02 Hypoxemia; R53.83 Other fatigue; E87.6 Hypokalemia; R00.0 Tachycardia, unspecified
CPT/HCPCS: 80053; 85027; 80198; 83880; 84439; 84443

== ENCOUNTER 2022-09-10 13:27 | Emergency (ER) | payer MEDICAID, SELFPAY ==
[2022-09-10 13:29] VITALS: BP 150/80; PULSE 89; RESP 21; TEMP 36.6; O2SAT 97
[2022-09-10 13:30] VITALS: O2SAT 97
--- NOTE | 2022-09-10 13:30 | RT.EKG_ITS ---
APPROVED REPORT Exam: Resting ECG Reason for Exam: SOB/CP Patient Location: E HR:90 bpm ECG Measurements Heart Rate 90 AXIS NM 152 P 83 QRSd 88 QRS -34 QT 348 T 63 QTc 427 Conclusion Sinus rhythm...normal P axis, V-rate 60- 99 Left axis deviation. Poor baseline
--- NOTE | 2022-09-10 14:00 | DI.CT_ITS ---
Exam(s) CT CHEST PE CTA EXAM: CT CHEST PE CTA CLINICAL HISTORY: Hemoptysis, COVID +. TECHNIQUE: Imaging Protocol: CT angiography of the chest was performed using pulmonary embolus sawyer col. Multi planar reconstructions were performed. CONTRAST MATERIAL: Intravenous: Omnipaque 350 Contrast volume: 100 cc COMPARISON: CT CT CHEST PE CTA from 12/08/2020 FINDINGS: CHEST: PULMONARY ARTERIES: There are no intraluminal filling defects to suggest acute pulmonary emboli. LUNGS: COPD emphysematous findings. There are calcified granulomas in the left lung. Some atelectas is in the lung bases. Mild ground-glass lung densities noted bilaterally which is probably related t o air trapping but Covid testing recommended MEDIASTINUM: There is no hilar nor mediastinal adenopathy. Visualized thyroid unremarkable. CARDIAC: Heart size is upper normal. There is no pericardial effusion.Caliber of the thoracic aorta is within normal limits. No dissection. There is no significant shift of the interventricular septum . PARTIALLY VISUALIZED UPPERMOST ABDOMEN: Splenic granulomas noted. Spleen size normal. No adrenal ma sses. OSSEOUS: No significant osseous lesions.No fractures.. IMPRESSION: 1. No evidence of acute pulmonary emboli. No evidence of pulmonary infarction.No pleural effusions. 2. COPD/emphysematous changes. Some [id number] lung markings bilaterally which are probably r elated to an element of air trapping but nevertheless recommend Covid testing. RADIATION DOSE DELIVERED: 484.77mGy.cm Total DLP DATA REPOSITORY: All CT scans at this facility are submitted to the National Radiology Data Registry (NRDR) Dose Index Registry (DIR) with the [employer] (ACR). RADIATION OPTIMIZATION: All CT scans at this facility use at least one of these dose optimization te chniques: automated exposure control; mA and/or kV adjustment per patient size (includes targeted exa ms where dose is matched to clinical indication); or iterative reconstruction.
--- NOTE | 2022-09-10 14:12 | ED.GENADUL_ITS ---
Discharge Plan Disposition Patient Disposition: STILL A PATIENT Condition: Stable Discharge Details Chief Complaint: SOB Clinical Impression: COVID Primary Care Provider: Rashawn Francisco ED Provider: Jose Cruz Porter Home Meds and New Rx's Prescriptions: No Action gabapentin 600 mg tablet 600 mg PO BID furosemide 40 mg tablet 40 mg PO DAILY omeprazole 20 mg capsule,delayed release(DR/EC) 20 mg PO DAILY Trelegy Ellipta 200-62.5-25 mcg Blister With Device 1 inh INHALATION DAILY albuterol sulfate 2.5 mg /3 mL (0.083 %) Solution For Nebulization 2.5 mg inhalation QID PRN PRN theophylline 400 mg Tablet Extended Release 400 mg PO BID levothyroxine [Synthroid] 25 MCG tablet 1 tab PO DAILY albuterol sulfate [ProAir HFA] 200 PUFF HFA aerosol inhaler 2 puff Inhalation PRN loratadine [Claritin] 10 mg Tablet 10 mg PO DAILY guaifenesin [Mucinex] 600 mg Tablet Extended Release 12hr 600 mg PO BID Medical Decision Making 57-year-old gentleman, former smoker, past medical history of COPD, O2 dependent baseline 2-4 L, presents to the ER having been diagnosed with COVID on Sunday, concern now for pneumonia. Patient reports chest pain with coughing, sputum, hemoptysis. Clinically he appears nontoxic, O2 is 97% on his typical 4 L. Plan to initiate a cardiac work-up including a single troponin and EKG given the duration of his symptoms, CTA of his chest given COVID-positive and hemoptysis. Laboratory values are grossly unremarkable for any obvious emergent process. Awaiting CTA of the chest. This documentation was generated using [employer] dictation system, please disregard any oddities of phrase or misspellings. Medical Records Medical records reviewed: Yes I reviewed the patient's medical records. Lab Data Lab results reviewed: Yes I reviewed the patient's lab results. Labs: Laboratory Tests Range/Units 09/10/22 09/10/22 09/10/22 14:25 14:25 14:25 WBC (4.4-10.8) 10^3/uL 6.94 RBC (4.36-5.78) 10^6/uL 5.01 Hgb (13.5-17.5) g/dL 14.5 Hct (40.0-50.0) % 43.1 MCV (80-95) fL 86 MCH (27.0-33.0) pg 28.9 MCHC (32.0-36.0) % 33.6 RDW (11.8-14.1) % 12.1 Plt Count (130-400) 10^3/uL 261 MPV (8.0-11.0) fL 9.1 Immature Gran % 0.3 Neutrophils % 81.2 Lymphocytes % 13.8 Monocytes % 4.3 Eosinophils % 0.1 Basophils % 0.3 Nucleated RBC % (0.0-0.3) % 0.0 Absolute Neutrophils (1.2-6.7) 10^3/uL 5.63 Absolute Lymphocytes (1.2-3.4) 10^3/uL 0.96 L Absolute Monocytes (0.1-0.8) 10^3/uL 0.30 Absolute Eosinophils (0.0-0.7) 10^3/uL 0.01 Absolute Basophils (0.0-0.2) 10^3/uL 0.02 PT (9.3-11.0) sec 9.8 INR (0.9-1.1) 1.0 APTT (21.0-27.5) sec 25.0 Sodium (136-145) mmol/L 141 Potassium (3.5-5.1) mmol/L 3.9 Chloride (98-107) mmol/L 104 Carbon Dioxide (21.0-32.0) mmol/L 30.4 Anion Gap (3-11) mmol/L 6.6 BUN (7-18) mg/dL 7 Creatinine (0.70-1.30) mg/dL 0.9 Est GFR (CKD-EPI 2020) (mL/min/1.73m2) 98.38 Glucose (74-106) mg/dL 113 H Calcium (8.5-10.1) mg/dL 9.2 Total Bilirubin (0.2-1.0) mg/dL 0.3 AST (15-37) U/L 14 L ALT (16-63) U/L 14 L Alkaline Phosphatase (46-116) U/L 70 Troponin I (<or=60) ng/L < 50 Total Protein (6.4-8.2) g/dL 7.6 Albumin (3.4-5.0) g/dL 3.5 ECG Data Attestation: I personally reviewed and interpreted this ECG (s) as follows: Interpretation: Sinus rhythm, ventricular rate of 90. No STEMI. HPI General Mode of arrival: ambulatory . Date/Time Provider Initiated Documentation: 09/10/22 13:49 . Limitations to Documentation: no limitations . Information obtained by: patient . HPI Narrative: This is a 57-year-old gentleman, former smoker, past medical history of COPD, O2 dependent between 2 and 4 L, having not felt well for a few days, tested positive for COVID on Sunday and PCP initiated Paxlovid, presenting for worsening cough, shortness of breath, chest pain with coughing, mild hemoptysis, concern for pneumonia. He reports subjective fevers, productive cough, body aches, fatigue, headache. Denies neck pain, sore throat, abdominal pain, nausea with vomiting, pain or swelling in his calves. Denies history of DVT or PE. He is not anticoagulated. Related Data Home Medications Medication Instructions Recorded Confirmed albuterol sulfate 90 mcg/actuation 2 puff inhalation PRN 07/31/17 aerosol inhaler (ProAir HFA) levothyroxine 25 mcg tablet 1 tab PO DAILY 07/31/17 12/08/20 (Synthroid) guaifenesin 600 mg tablet, 600 mg PO BID 05/23/20 12/08/20 extended release 12 hr (Mucinex) loratadine 10 mg tablet (Claritin) 10 mg PO DAILY 05/23/20 12/08/20 furosemide 40 mg tablet 40 mg PO DAILY 07/02/20 12/08/20 gabapentin 600 mg tablet 600 mg PO BID 07/02/20 12/08/20 omeprazole 20 mg capsule,delayed 20 mg PO DAILY 07/02/20 12/08/20 release albuterol sulfate 2.5 mg/3 mL 2.5 mg inhalation QID PRN PRN 11/11/20 11/25/20 (0.083 %) solution for nebulization fluticasone fur. 200 mcg-umeclid 1 inh inhalation DAILY 11/11/20 12/08/20 62.5 mcg-vilant 25 mcg inhalat.powder (Trelegy Ellipta) theophylline 400 mg 400 mg PO BID 11/24/20 12/08/20 tablet,extended release Allergies Allergy/AdvReac Type Severity Reaction Status Date / Time pineapple Allergy Severe Anaphylaxsi Unverified 12/08/20 15:48 s lysol Allergy Severe Anaphylaxsi Uncoded 12/08/20 15:48 s General Stated Complaint: SOB BRUCE: 2 Review of Systems Constitutional Constitutional: Reports fever(s), Reports headache(s) and Denies weakness ENT Ears, Nose, Mouth, and Throat: Reports headache(s) and Denies neck pain Cardiovascular Cardiovascular: Reports chest pain (With coughing) and Reports dyspnea Respiratory Respiratory: Reports cough and Reports dyspnea Gastrointestinal Gastrointestinal: Denies abdominal pain, Denies nausea and Denies vomiting Musculoskeletal Musculoskeletal: Reports myalgias and Denies neck pain Integumentary/Breasts Skin/Breast: Denies rash Neurologic Neurologic: Reports headache(s) and Denies weakness Hematologic/Lymphatic Hematologic/Lymphatic: Denies easy bleeding and Denies easy bruising PFSH All Active Problems (Updated 09/10/22 @ 15:36 by ALEXX Massey) History of COVID-19 (Acute) COVID (Acute) Medical History Acid reflux COPD (chronic obstructive pulmonary disease) Granulomatous lung disease Hypothyroidism Multiple nodules of lung Restless leg syndrome Social History Smoking/Tobacco Use Status: Former Tobacco Use Smoking risk assessment performed?: Yes Alcohol Intake: never Drug use: Never Substance use type: does not use Current gender identity: male Do you feel safe at home: Yes Do you feel safe in your relationship?: Yes Exam Const General: cooperative, comfortable and no acute distress Orientation: alert, awake and oriented x3 HENMT Head: normal to inspection, normocephalic and atraumatic Face and sinus: normal facial exam Mouth: moist mucous membranes Eyes General: appearance normal, both eyes and all related structures Conjunctivae: conjunctivae normal Neck Neck: normal visual inspection, full ROM, no meningeal signs, trachea midline and supple Resp Effort & Inspection: normal respiratory effort and able to speak in complete sentences Auscultation: diminished lung sounds bilaterally in the lower lung peterson and wheezes (Scattered throughout, mostly clear with coughing) Cardio Rate: regular rate Rhythm: regular rhythm GI Palpation: soft, not firm, no guarding and nontender Back/Spine/Pelvis Back: No back tenderness Skin General skin exam: no rashes or lesions noted Neuro General: patient alert, patient awake, moves all extremities and no focal motor deficits Cognition: normal cognition Speech: speech normal Gait: normal gait Motor: muscle tone normal throughout Sensory Exam: no sensory deficits noted Extrem General: normal to inspection, full ROM, capillary refill normal, no pedal edema and no calf tenderness Psych Appearance: grossly normal Mental Status: mental status grossly normal Course Vital Signs Vital signs: Vital Signs Temperature 36.6 C 09/10/22 13:29 Pulse 89 09/10/22 13:29 Respiratory Rate 21 09/10/22 13:29 Blood Pressure 150/80 H 09/10/22 13:29 Pulse Oximetry 97 09/10/22 13:29 Temperature 36.6 C 09/10/22 13:29 Temperature Source Skin 09/10/22 13:29 Pulse 89 09/10/22 13:29 Respiratory Rate 21 09/10/22 13:29 Respiratory Effort 09/10/22 14:08 Respiratory Depth Normal 09/10/22 14:08 Respiratory Pattern Normal 09/10/22 14:08 Blood Pressure 150/80 H 09/10/22 13:29 Blood Pressure Position Sitting 09/10/22 13:29 Pulse Oximetry 97 09/10/22 13:30 Oxygen Delivery Method Nasal Cannula 09/10/22 13:30 Oxygen Flow Rate 4 09/10/22 13:30 Pain Level 9 09/10/22 13:29
[2022-09-10 14:34] LABS: Abs Immature Grans 0.02 10^3/uL (0.0-0.06); Absolute Basophil Count 0.02 10^3/uL (0.0-0.2); Absolute Eosinophil Count 0.01 10^3/uL (0.0-0.7); Absolute Lymphocyte Count 0.96 10^3/uL (1.2-3.4); Absolute Neutrophil Count 5.63 10^3/uL (1.2-6.7); Basophils % 0.3; Eosinophils % 0.1; HCT 43.1 % (40.0-50.0); HGB 14.5 g/dL (13.5-17.5); Immature Grans % 0.3; Lymphocytes % 13.8; MCH 28.9 pg (27.0-33.0); MCHC 33.6 % (32.0-36.0); MCV 86 fL (80-95); MPV 9.1 fL (8.0-11.0); Monocytes % 4.3; Neutrophils % 81.2; Platelet Count 261 10^3/uL (130-400); RBC 5.01 10^6/uL (4.36-5.78); RDW 12.1 % (11.8-14.1); RDW-SD 37.9 fL; WBC 6.94 10^3/uL (4.4-10.8)
[2022-09-10 14:48] LABS: Prothrombin Time 9.8 sec (9.3-11.0)
[2022-09-10 14:52] LABS: ALT 14 U/L (16-63); AST 14 U/L (15-37); Albumin 3.5 g/dL (3.4-5.0); Alkaline Phosphatase 70 U/L (46-116); Anion Gap 6.6 mmol/L (3-11); BUN 7 mg/dL (7-18); Bilirubin, Total 0.3 mg/dL (0.2-1.0); CO2 30.4 mmol/L (21.0-32.0); CREATININE 0.9 mg/dL (0.70-1.30); Calcium 9.2 mg/dL (8.5-10.1); Chloride 104 mmol/L (98-107); Estimated GFR 98.38 (mL/min/1.73m2); Glucose 113 mg/dL (74-106); Potassium 3.9 mmol/L (3.5-5.1); Sodium 141 mmol/L (136-145); Total Protein 7.6 g/dL (6.4-8.2); Troponin I < 50 ng/L (<or=60)
[2022-09-10] MEDS: Omnipaque 350 MG/ML 100 ML BTL IJ (15:37)
[2022-09-10] MEDS: Normal Saline Flush 10 ML SYR IVP (15:37)
--- NOTE | 2022-09-10 15:44 | ED.PROG_ITS ---
Date of service: 09/10/22 Time of Service: 15:44 Medical Decision Making 1545: Care assumed from provider (ALEXX Ambriz) Please see their initial HPI, PE, and documentation. Discussed patient details and case and pending workup and disposition. Patient is hemodynamically stable, and alert and oriented. At the time of signout pending CTA rule out PE patient is a 57-year-old male COVID-positive on Paxlovid. Past medical history includes COPD hypothyroidism restless leg syndrome. He is not vaccinated. 1614: CTA has been read by V zohabi which reports negative for pneumonia but severe COPD. This is chronic and unchanged from previous exam. Due to patient's symptoms and risk factors I do feel that Levaquin could be given due to productive cough. Patient does have a risk for development of pneumonia. Upon patient's reevaluation he does feel well enough to be discharged home and is in agreement with the plan. Alert oriented speaking in full sentences vital signs are stable. Discussed the antibiotic with him first dose was given here. A referral was given for him to establish care with our bearing ring assembler as currently he is in between providers. This text was generated using [employer] dictation system, please disregard any oddities of phrase or misspellings. Medical Records Medical records reviewed: Yes I reviewed the patient's medical records. Lab Data Lab results reviewed: Yes I reviewed the patient's lab results. Labs: Laboratory Tests Range/Units 09/10/22 09/10/22 09/10/22 14:25 14:25 14:25 WBC (4.4-10.8) 10^3/uL 6.94 RBC (4.36-5.78) 10^6/uL 5.01 Hgb (13.5-17.5) g/dL 14.5 Hct (40.0-50.0) % 43.1 MCV (80-95) fL 86 MCH (27.0-33.0) pg 28.9 MCHC (32.0-36.0) % 33.6 RDW (11.8-14.1) % 12.1 Plt Count (130-400) 10^3/uL 261 MPV (8.0-11.0) fL 9.1 Immature Gran % 0.3 Neutrophils % 81.2 Lymphocytes % 13.8 Monocytes % 4.3 Eosinophils % 0.1 Basophils % 0.3 Nucleated RBC % (0.0-0.3) % 0.0 Absolute Neutrophils (1.2-6.7) 10^3/uL 5.63 Absolute Lymphocytes (1.2-3.4) 10^3/uL 0.96 L Absolute Monocytes (0.1-0.8) 10^3/uL 0.30 Absolute Eosinophils (0.0-0.7) 10^3/uL 0.01 Absolute Basophils (0.0-0.2) 10^3/uL 0.02 PT (9.3-11.0) sec 9.8 INR (0.9-1.1) 1.0 APTT (21.0-27.5) sec 25.0 Sodium (136-145) mmol/L 141 Potassium (3.5-5.1) mmol/L 3.9 Chloride (98-107) mmol/L 104 Carbon Dioxide (21.0-32.0) mmol/L 30.4 Anion Gap (3-11) mmol/L 6.6 BUN (7-18) mg/dL 7 Creatinine (0.70-1.30) mg/dL 0.9 Est GFR (CKD-EPI 2020) (mL/min/1.73m2) 98.38 Glucose (74-106) mg/dL 113 H Calcium (8.5-10.1) mg/dL 9.2 Total Bilirubin (0.2-1.0) mg/dL 0.3 AST (15-37) U/L 14 L ALT (16-63) U/L 14 L Alkaline Phosphatase (46-116) U/L 70 Troponin I (<or=60) ng/L < 50 Total Protein (6.4-8.2) g/dL 7.6 Albumin (3.4-5.0) g/dL 3.5 Sign Out Sign Out Data: Sign Out Comment: COVID-positive. On Paxlovid. Work-up thus far benign. Awaiting CTA to rule out PE. Given his COVID, COPD, initiating Levaquin antibiotic therapy is reasonable. Last updated by Jose Cruz Porter PA at 09/10/22 15:37 Discharge Plan Disposition Patient Disposition: STILL A PATIENT Condition: Stable Discharge Details Clinical Impression: COVID Primary Care Provider: Rashawn Francisco ED Provider: Yennifer Serrano Home Meds and New Rx's Prescriptions: New levofloxacin 750 mg tablet 750 mg PO DAILY 7 Days Qty: 7 0RF Rx Instructions: Take one tablet once daily x 7 days Continued gabapentin 600 mg tablet 600 mg PO BID furosemide 40 mg tablet 40 mg PO DAILY omeprazole 20 mg capsule,delayed release(DR/EC) 20 mg PO DAILY Trelegy Ellipta 200-62.5-25 mcg Blister With Device 1 inh INHALATION DAILY albuterol sulfate 2.5 mg /3 mL (0.083 %) Solution For Nebulization 2.5 mg inhalation QID PRN PRN theophylline 400 mg Tablet Extended Release 400 mg PO BID levothyroxine [Synthroid] 25 MCG tablet 1 tab PO DAILY albuterol sulfate [ProAir HFA] 200 PUFF HFA aerosol inhaler 2 puff Inhalation PRN loratadine [Claritin] 10 mg Tablet 10 mg PO DAILY guaifenesin [Mucinex] 600 mg Tablet Extended Release 12hr 600 mg PO BID Discharge Instructions Instructions: COVID-19 and Chronic Health Conditions (ED) Additional Instructions: CT is negative for clot in your lung or evidence of pneumonia however we are getting. Antibiotics due to your risk factors for developing pneumonia. You are given the first dose here in the department. Please take medication as directed once daily for the next 7 days. Continue to use your other medications as previously prescribed. You are placed on a care management list to establish care with a bearing ring assembler here at [facility]. Follow up with primary care provider in 3-5 days. Return to ED sooner if any worsening or concerns. Increase oral fluids. Please take [id number] vitamin D 8, zinc, multivitamin as needed. Please take Tylenol or Ibuprofen with food every 4-6 hours as needed for pain and swelling. Continue to wear mask and quarantine per CDC requirements. please continue the Paxil bid. Referrals: Afsaneh Bernal MD [ [facility] STAFF PHYSICIAN] - 2 weeks Rashawn Francisco MD [Primary Care Provider] - 1 week
--- NOTE | 2022-09-10 15:54 | DI.VRAD_ITS ---
PROCEDURE INFORMATION: Exam: CTA Chest With Contrast Exam date and time: 09/10/2022 3:31 PM Age: 57 years old Clinical indication: Other: Hemoptysis, covid + TECHNIQUE: Imaging protocol: Computed tomographic angiography of the chest with contrast. 3D rendering (Not supervised by radiologist): MIP and/or 3D reconstructed images were created by the technologist. Radiation optimization: All CT scans at this facility use at least one of these dose optimization techniques: automated exposure control; mA and/or kV adjustment per patient size (includes targeted exams where dose is matched to clinical indication); or iterative reconstruction. Contrast material: OMNIPAQUE 350; Contrast volume: 100 ml; Contrast route: INTRAVENOUS (IV); COMPARISON: CT CHEST PE CTA 12/08/2020 7:24 PM FINDINGS: Pulmonary arteries: Normal. No pulmonary emboli. Aorta: Unremarkable. No aortic aneurysm. No aortic dissection. Lungs: No change severe COPD. Left lower lobe calcified granuloma again seen. Minimal bibasilar atelectasis. Pleural spaces: Unremarkable. No pneumothorax. No pleural effusion. Heart: Unremarkable. No cardiomegaly. No pericardial effusion. Lymph nodes: Unremarkable. No enlarged lymph nodes. Pancreas: Again noted is fluid density focus associated with the inferior aspect of the pancreatic head, medial to the uncinate process series 6, image 546 measuring 2.2 cm. Spleen: Splenic calcifications are again noted consistent with old granulomatous change. Bones/joints: Unremarkable. No acute fracture. Soft tissues: Unremarkable. IMPRESSION: No evidence for pulmonary embolus. No change COPD. Dictated and Authenticated by: Nava Whitaker MD. Ordering:PEYTON Billingsley MD
--- NOTE | 2022-09-10 16:28 | NUR.NOTE ---
Nursing Note: referral to pulmonlogy
[2022-09-10] MEDS: levoFLOXacin 500 MG TAB PO (16:34)
[2022-09-10] MEDS: levoFLOXacin 250 MG TAB PO (16:34)
== END 2022-09-10 17:18 | disposition still patient (30) ==
PROVIDERS: Physician Assistant; Emergency Provider Registered Nurse Emergency; PCP Internal Medicine
DX: U07.1 COVID-19 (principal); J44.9 Chronic obstructive pulmonary disease, unspecified
CPT/HCPCS: 71275; 80053; 93005; 99285; 84484; 85025; 85610; 85730; 93010; 99284; J3490

== ENCOUNTER 2022-10-18 14:30 | Outpatient (CLI) | payer MEDICAID, SELFPAY ==
[2022-10-18 14:51] LABS: Abs Immature Grans 0.03 10^3/uL (0.0-0.06); Absolute Basophil Count 0.05 10^3/uL (0.0-0.2); Absolute Eosinophil Count 0.15 10^3/uL (0.0-0.7); Absolute Lymphocyte Count 1.74 10^3/uL (1.2-3.4); Absolute Monocyte Count 0.45 10^3/uL (0.1-0.8); Absolute Neutrophil Count 4.41 10^3/uL (1.2-6.7); Basophils % 0.7; Eosinophils % 2.2; HCT 43.3 % (40.0-50.0); HGB 14.4 g/dL (13.5-17.5); Immature Grans % 0.4; Lymphocytes % 25.5; MCH 29.1 pg (27.0-33.0); MCHC 33.3 % (32.0-36.0); MCV 88 fL (80-95); MPV 9.4 fL (8.0-11.0); Monocytes % 6.6; Neutrophils % 64.6; Platelet Count 262 10^3/uL (130-400); RBC 4.94 10^6/uL (4.36-5.78); RDW 12.3 % (11.8-14.1); RDW-SD 39.6 fL; WBC 6.83 10^3/uL (4.4-10.8)
[2022-10-20 10:37] LABS: IgE 5 IU/mL (<158)
== END 2022-10-18 14:31 | disposition home or self-care (01) ==
LOC: LBN 14:31
PROVIDERS: PCP Internal Medicine; Visit Provider Student in an Organized Health Care Education/Training Program
DX: J44.9 Chronic obstructive pulmonary disease, unspecified (principal)
CPT/HCPCS: 82785; 85025

== ENCOUNTER 2022-10-26 01:50 | Outpatient (CLI) | payer MEDICAID, SELFPAY ==
[2022-10-26 15:12] LABS: BE 4 mmol/L (-2-3); FIO2L 2 L; HCO3 29 mmol/L (22-26); Site Right Radial; TCO2 30 mmol/L (23-27); pCO2 47 mmHg (35-45); pO2 147 mmHg (80-105); sO2 99 % (95-98)
== END 2022-10-26 01:51 | disposition home or self-care (01) ==
LOC: RT 01:51
PROVIDERS: PCP Internal Medicine; Visit Provider Student in an Organized Health Care Education/Training Program
DX: J44.9 Chronic obstructive pulmonary disease, unspecified (principal)
CPT/HCPCS: 82803; 82805

== ENCOUNTER 2022-10-26 01:50 | Outpatient (CLI) | payer MEDICAID, SELFPAY ==
[2022-10-26] MEDS: Albuterol HFA 18 GM 200 PUFF INH IH (16:25)
[2022-10-26] MEDS: Inhaler, Assist Device 1 EACH MC (16:26)
--- NOTE | 2022-10-27 13:53 | W.PFT ---
Date of service: 10/26/22 Time of Service: 15:23 Pulmonary Function Test Result Requesting Provider Dolores Indications: ACOS Interpretation Spirometry: There is very severe airflow limitation. Tehre is a significant bronchodilator response. Lung Volumes: There is significant air trapping and hyperinflation. Diffusion Capacity: There is decreased diffusion. Airway Pressure: Increased airways resistance. Impression There is very severe airflow obstruction. PFT's are consistent with very severe COPD with emphysema. Clinical Correlation therefore is recommended.
--- NOTE | 2022-10-27 15:09 | W.PFT ---
Date of service: 10/26/22 Time of Service: 15:10 Pulmonary Function Test Result Requesting Provider Dolores Indications: ACOS Note: 6 Minute Walk Test Distance walked: 700 feet Desaturations:stayed 100% at 4LPM Heart rate changes:Tachycardic even at rest, no significant changes with exertion Recommendation: Afsaneh Bernal MD Pulmonary & Critical Care Medicine Clinical Correlation therefore is recommended.
--- NOTE | 2022-10-31 12:23 | W.PFT ---
Date of service: 10/26/22 Time of Service: 19:36 Pulmonary Function Test Result Requesting Provider Dolores Indications: ACOS Note: Overnight Oximetry Amount of time analyzed: 11 hours 54 minutes on 2LPM O2 Number of minutes under 88%: 0.6 minutes JAMILA: 1.0 Appearance of oxygen saturation pattern: Normal appearing pattern Recommendation: 2LPM is sufficient nocturnal oxygen Afsaneh Bernal MD Pulmonary & Critical Care Medicine Clinical Correlation therefore is recommended.
== END 2022-10-26 01:51 | disposition home or self-care (01) ==
LOC: RT 01:50
PROVIDERS: PCP Internal Medicine; Visit Provider Student in an Organized Health Care Education/Training Program
DX: J44.9 Chronic obstructive pulmonary disease, unspecified (principal); J98.8 Other specified respiratory disorders; J43.8 Other emphysema
CPT/HCPCS: 94060; 94618; 94726; 94729; 36600; 94762

== ENCOUNTER 2022-12-27 02:20 | Outpatient (CLI) | payer MEDICARE, MEDICAID, SELFPAY ==
--- NOTE | 2022-12-27 07:15 | DI.CT_ITS ---
Exam(s) CT CHEST WO EXAM: CT CHEST WO CLINICAL HISTORY: f/u pulmonary nodules, r91.8. TECHNIQUE: Imaging protocol: Axial computed tomography images were obtained and coronal and sagittal reformatted images were created and reviewed. COMPARISON: CT CT CHEST PE CTA from 09/10/2022 FINDINGS: Tracheobronchial tree: Patent where visualized. Pulmonary parenchyma: There are marked emphysematous changes in the lungs. There are calcified granu gayathri seen in the left lower lobe. No noncalcified pulmonary nodules are present. There are no focal consolidating infiltrate seen. Parenchymal scarring is present in the right lung. Mediastinum and Maxine: No dominant adenopathy or fluid collection. The esophagus is unremarkable.There are calcified lymph nodes in the left hilum. Thyroid gland: Unremarkable. Pleura: No effusion or pneumothorax. Heart: The heart is not dilated. No coronary artery calcifications are seen. No pericardial effusion. Aorta: Thoracic aorta non-dilated. Atherosclerosis is present. Upper abdomen: Calcified granuloma are seen in the liver and spleen. Lymph nodes: Within normal limits. Soft tissues: Gynecomastia is present. Bones:Within normal limits for the patient's age. IMPRESSION: 1. Stable findings of granulomatous disease with calcified pulmonary nodules, calcified mediastinal l ymph nodes and calcified granuloma in the liver and spleen. 2. No noncalcified pulmonary nodules. 3. Marked emphysematous changes. RADIATION DOSE DELIVERED: 640.95mGy.cm Total DLP 640.95mGy.cm Total DLP DATA REPOSITORY: All CT scans at this facility are submitted to the National Radiology Data Registry (NRDR) Dose Index Registry (DIR) with the [employer] (A[employer]). RADIATION OPTIMIZATION: All CT scans at this facility use at least one of these dose optimization te chniques: automated exposure control; mA and/or kV adjustment per patient size (includes targeted exa ms where dose is matched to clinical indication); or iterative reconstruction.
== END 2022-12-27 02:40 ==
LOC: DI 02:20
PROVIDERS: PCP Internal Medicine; Visit Provider Student in an Organized Health Care Education/Training Program
DX: R91.8 Other nonspecific abnormal finding of lung field (principal)
CPT/HCPCS: 71250

== ENCOUNTER 2022-12-28 14:54 | Outpatient (REF) | payer MEDICARE, MEDICAID, SELFPAY ==
[2022-12-28 21:19] LABS: Anion Gap 7.9 mmol/L (3-11); BUN 9 mg/dL (7-18); CO2 29.1 mmol/L (21.0-32.0); CREATININE 0.9 mg/dL (0.70-1.30); Calcium 9.6 mg/dL (8.5-10.1); Chloride 105 mmol/L (98-107); Estimated GFR 98.38 (mL/min/1.73m2); Glucose 98 mg/dL (74-106); Magnesium 2.3 mg/dL (1.8-2.4); Potassium 4.1 mmol/L (3.5-5.1); Sodium 142 mmol/L (136-145)
== END 2022-12-28 14:55 | disposition home or self-care (01) ==
LOC: NCHCN 14:54
PROVIDERS: PCP Internal Medicine; Visit Provider Family Medicine
DX: J44.9 Chronic obstructive pulmonary disease, unspecified (principal); R06.00 Dyspnea, unspecified; F41.8 Other specified anxiety disorders
CPT/HCPCS: 80048; 83735

== ENCOUNTER 2023-04-18 01:45 | Outpatient (CLI) | payer MEDICARE, MEDICAID, SELFPAY ==
[2023-04-18] MEDS: Barium Sulfate 2% W/V-Berry Smoothie 450 ML BTL 900 ML PO (11:30)
--- NOTE | 2023-04-18 13:00 | DI.CT_ITS ---
Exam(s) CT ABDOMEN PELVIS W EXAM: CT ABDOMEN PELVIS W CLINICAL HISTORY: ABD PAIN, R10.9. TECHNIQUE: Imaging Protocol: Axial computed tomography images with coronal and sagittal reformatted images were created and reviewed CONTRAST MATERIAL: Intravenous: Omnipaque 350 Contrast volume:100 ml Oral: yes / COMPARISON: CT CT CHEST WO from 10/01/[address] CHEST PE CTA from 11/11/[address] CHEST PE CTA from 09/10/2022 FINDINGS: ABDOMEN: Exam mildly limited by motion. Lung Bases: Scarring and emphysematous changes. Liver: Normal density. No measurable mass. Gallbladder and biliary tract: No radiodense calculus or dilation. Pancreas: 17 x 10 millimeter cystic area at the posterior superior margin of the pancreas. Stable b ack to 2019. No suspicious features. Normal density, no abnormal calcifications or inflammatory pro cess. Spleen: Normal. Kidneys: Normal size, contour and axis. No radiodense stones or obstructive uropathy. No suspicious m asses seen. Adrenal glands: No masses seen. Abdominal Aorta: Abdominal portion non-dilated. Mild atherosclerotic changes. Soft tissues: Unremarkable. PELVIS: Bladder: Somewhat distended but no gross wall thickening. No calculi.No focal mass. Bowel: Mild diverticulosis. Normal quantity of stool. No obstruction. No bowel wall thickening. A ppendix normal. Peritoneal cavity: No ascites, collection or mesenteric inflammatory response. Bones: Degenerative disc changes and Schmorl's node at L4-5. Spine otherwise unremarkable. Reproductive organs: Mildly enlarged prostate with nodule superiorly impinging on the base of the flor dder. Lymph nodes: Unremarkable. Impression: No acute abnormality. Mild diverticulosis. Enlarged prostate. Stable small cyst at the edge of the pancreas. RADIATION DOSE DELIVERED: 1,143.26mGy.cm Total DLP DATA REPOSITORY: All CT scans at this facility are submitted to the National Radiology Data Registry (NRDR) Dose Index Registry (DIR) with the [employer] (ACR). RADIATION OPTIMIZATION: All CT scans at this facility use at least one of these dose optimization te chniques: automated exposure control; mA and/or kV adjustment per patient size (includes targeted exa ms where dose is matched to clinical indication); or iterative reconstruction.
[2023-04-18] MEDS: Normal Saline Flush 10 ML SYR IVP (13:03)
[2023-04-18] MEDS: Omnipaque 350 MG/ML 100 ML BTL IJ (13:06)
[2023-04-18] MEDS: Normal Saline - Diluent 50 ML VIAL IJ (13:07)
--- NOTE | 2023-04-18 14:00 | DI.US_ITS ---
APPROVED REPORT EXAM: Comprehensive 2D, Doppler, and color-flow Echocardiogram Patient [facility] Librarian: Marianna Aguilera RDCS (AE) Indications: Dyspne COPD Other Information Study Quality: Poor. Technically limited study due to body habitus, lung disease. Conclusion Technically difficult and suboptimal study Left ventricular systolic function appears within the range of normal, EF 55% Right ventricular size is grossly normal Both atria are normal in size There is no structural or hemodynamically significant valvular disease identified Right ventricular systolic pressure could not be estimated Wall motion Left Ventricle Technically limited parasternal imaging. The overall left ventricular systolic function appears marty l. There is no ventricular septal defect visualized. LVEF is 55%. Right Ventricle Right ventricle is grossly normal in size. Right ventricular systolic function could not be assessed. Atria The left atrium size is normal. The right atrium size is normal. The interatrial septum is intact wit h no evidence for an atrial septal defect. Aortic Valve The aortic valve is grossly normal in structure. There is no aortic valvular stenosis. Trace aortic r egurgitation. Mitral Valve The mitral valve is grossly normal in structure. No evidence of mitral valve stenosis. Trace mitral r egurgitation. Tricuspid Valve The tricuspid valve is grossly normal in structure. There is no tricuspid valve stenosis. Trace tricu spid regurgitation. Unable to assess PA pressure. Pulmonic Valve Technically limited parasternal imaging. Pulmonic valve is not visualized. Great Vessels The aortic root is normal in size. Ascending aorta is not well visualized. Aortic arch is not well vi sualized. IVC is normal in size and collapses >50% with inspiration. Pericardium There is no pericardial effusion. 2D Dimensions Ao Root d 2.72 cm M: 3.1 - 3.7 LV Vol A2C d MOD 84.2 mL LVEF ([facility]'s) 52.69 % M: 52 - 72 LV Vol A4C d MOD 83.6 mL LV Volume 61.76 mL M: 62 - 150 LA vol/ BSA A2C s A-L 11.6 mL/m2 LV Volume Index 28.59 mL/m2 M: 34 - 74 LA vol/ BSA A4C s A-L 9.6 mL/m2 LV Vol Biplane MOD 84.4 mL LA Vol/ BSA Biplane s A-L 10.8 mL/m2 LA Area A4C s MOD 9.87 cm2 LA Area A2C s MOD 11.03 cm2 LV EF A4C MOD 50.0 % LV EF A2C MOD 55.7 % LV EF Biplane MOD 52.7 % SV 44.49 mL SV Index 20.59 mL/m2 M-Mode TAPSE 2.99 cm (M/F) >1.7 LV Diastology MV E' medial 0.104 (>0.07 m/s) E/A Ratio 1.0 LV E/e MED 7.85 (<14) MV E Vmax 0.82 (0.4-1.3 m/s) MV E' lateral 0.129 (>0.1 m/s) MV A Vmax 0.85 (0.4-1.3 m/s) LV E/e LAT 6.30 (<14) MV E/A Ratio 0.93 MV E/E' medial 7.89 MV E/E' lateral 6.34 Aortic Valve LVOT Area 3.87 cm2 AoV Area Vmax 2.63 cm2 LVOT Vmax 0.76 m/s AoV Area/ BSA (Vmax) 1.22 cm2/m2 LVOT Mean Ramon. 0.48 m/s ORION Mean Ramon. 2.38 cm2 LVOT Peak Grad 2.3 mmHg ORION Mean Ramon. Index 1.10 cm2/m2 LVOT Mean Grad 1.1 mmHg LVOT VTI 0.153 m LVOT Diam s 2.20 cm AoV Vmax 1.12 m/s Velocity Ratio 0.68 AoV Mean Ramon. 0.78 m/s AoV Peak Grad 5.0 mmHg LVOT SV 59.16 mL AoV Mean Grad 2.8 mmHg AoV VTI 0.220 m AoV Area VTI 2.68 cm2 AoV Area/ BSA (VTI) 1.24 cm/m2 Mitral Valve MV DT 162 (160-240 msec) MV PHT 47 msec MV Area PHT 4.69 cm2
== END 2023-04-18 02:05 ==
PROVIDERS: PCP Internal Medicine; Visit Provider Family Medicine
DX: R06.09 Other forms of dyspnea (principal); J44.9 Chronic obstructive pulmonary disease, unspecified; R10.9 Unspecified abdominal pain
CPT/HCPCS: 93306; 74177; J3490

== ENCOUNTER 2023-06-04 13:31 | Outpatient (REF) | payer MEDICARE, MEDICAID, SELFPAY ==
[2023-06-04 15:13] LABS: Abs Immature Grans 0.01 10^3/uL (0.0-0.06); Absolute Basophil Count 0.03 10^3/uL (0.0-0.2); Absolute Eosinophil Count 0.08 10^3/uL (0.0-0.7); Absolute Lymphocyte Count 1.15 10^3/uL (1.2-3.4); Absolute Monocyte Count 0.32 10^3/uL (0.1-0.8); Absolute Neutrophil Count 3.04 10^3/uL (1.2-6.7); Basophils % 0.6; Eosinophils % 1.7; HCT 43.7 % (40.0-50.0); HGB 14.6 g/dL (13.5-17.5); Immature Grans % 0.2; Lymphocytes % 24.8; MCH 29.3 pg (27.0-33.0); MCHC 33.4 % (32.0-36.0); MCV 88 fL (80-95); Monocytes % 6.9; Neutrophils % 65.8; Platelet Count 235 10^3/uL (130-400); RBC 4.99 10^6/uL (4.36-5.78); RDW 12.3 % (11.8-14.1); RDW-SD 39.2 fL; WBC 4.63 10^3/uL (4.4-10.8)
[2023-06-04 16:06] LABS: ALT 14 U/L (16-63); AST 14 U/L (15-37); Albumin 3.8 g/dL (3.4-5.0); Alkaline Phosphatase 78 U/L (46-116); Anion Gap 3.6 mmol/L (3-11); BUN 10 mg/dL (7-18); Bilirubin, Total 0.3 mg/dL (0.2-1.0); CO2 32.4 mmol/L (21.0-32.0); CREATININE 0.9 mg/dL (0.70-1.30); Calcium 9.4 mg/dL (8.5-10.1); Chloride 107 mmol/L (98-107); Estimated GFR 97.78 (mL/min/1.73m2); Ferritin 190 ng/mL (26-388); Glucose 112 mg/dL (74-106); Potassium 4.5 mmol/L (3.5-5.1); Sodium 143 mmol/L (136-145); Total Protein 7.3 g/dL (6.4-8.2)
== END 2023-06-04 13:32 | disposition home or self-care (01) ==
LOC: NCHCN 13:31
PROVIDERS: PCP Internal Medicine; Visit Provider Family Medicine
DX: J84.10 Pulmonary fibrosis, unspecified (principal); J44.9 Chronic obstructive pulmonary disease, unspecified; R73.03 Prediabetes; E03.9 Hypothyroidism, unspecified; G25.81 Restless legs syndrome
CPT/HCPCS: 80053; 82728; 85025

== ENCOUNTER 2023-10-15 13:43 | Emergency (ER) | payer MEDICARE, MEDICAID, SELFPAY ==
[2023-10-15] VITALS (10 sets, daily range): BP systolic 128–143; BP diastolic 89–97; PULSE 88–111; RESP 13–22; TEMP 37; O2SAT 97–99
--- NOTE | 2023-10-15 13:45 | RT.EKG_ITS ---
APPROVED REPORT Exam: Resting ECG Reason for Exam: SOB Patient Location: E HR:94 bpm ECG Measurements Heart Rate 94 AXIS VA 143 P 85 QRSd 89 QRS 16 QT 337 T 66 QTc 421 Conclusion Sinus rhythm...normal P axis, V-rate 60- 99
--- NOTE | 2023-10-15 14:30 | DI.RAD_ITS ---
Exam(s) XR PORTABLE CHEST AP EXAM: XR PORTABLE CHEST AP CLINICAL HISTORY: cough TECHNIQUE: 2D digital imaging was performed of the chest. One image was obtained. An AP view was ob tained. COMPARISON: CR,XR XR PORTABLE CHEST AP from 12/08/[address] CHEST WO from 12/27/2022 FINDINGS: MEDIASTINUM: Normal. HEART: Normal. PULMONARY VASCULATURE: Normal. LUNGS: There is hyper lucency in the lung apices consistent with COPD. There findings of granulomato us disease with calcified lymph nodes in the left hilum and in the parenchyma. PLEURAL SPACE: No pleural effusion or pneumothorax. BONE:Within normal limits for the patient's age. OTHER FINDINGS:Normal. IMPRESSION: 1. No acute pulmonary findings. 2. Findings of COPD and calcified granulomatous disease. DATA REPOSITORY: RADIATION DOSE DELIVERED:
--- NOTE | 2023-10-15 14:32 | ED.GENADUL_ITS ---
Discharge Plan Disposition Patient Disposition: Home Condition: Stable Discharge Details Clinical Impression: Acute bacterial bronchitis Primary Care Provider: Rashawn Francisco ED Provider: Jonathan Garcia Meds and New Rx's Prescriptions: New amoxicillin-pot clavulanate 875-125 mg tablet 1 tab PO BID Qty: 14 0RF Continued Trelegy Ellipta 200-62.5-25 mcg blister with device 1 inh inhalation DAILY Qty: 60 12RF azithromycin 250 mg tablet 250 mg PO DAILY Qty: 90 12RF (DME) Oxygen Tank See Rx Instructions .Route Qty: 1 0RF Rx Instructions: 2LPM at rest, 4LPM with exertion gabapentin 600 mg tablet 600 mg PO BID furosemide 40 mg tablet 40 mg PO DAILY omeprazole 20 mg capsule,delayed release(DR/EC) 20 mg PO DAILY PRN albuterol sulfate 2.5 mg /3 mL (0.083 %) Solution For Nebulization 2.5 mg inhalation QID PRN PRN theophylline 400 mg Tablet Extended Release 400 mg PO BID mirtazapine 30 mg tablet Patient Comments: TAKE ONE TABLET BY MOUTH AT BEDTIME albuterol sulfate [ProAir HFA] 200 PUFF HFA aerosol inhaler 2 puff Inhalation PRN loratadine [Claritin] 10 mg Tablet 10 mg PO DAILY guaifenesin [Mucinex] 600 mg Tablet Extended Release 12hr 600 mg PO BID Discharge Instructions Instructions: Acute Bronchitis (ED) Referrals: Rashawn Francisco MD [Primary Care Provider] - 3 days (call for appointment) Discharge Data Discharge Physician: Jonathan Garcia Medical Decision Making MDM: Summary: Patient with COPD who comes complaining of cough congestion generalized bodyaches since Sunday after he was exposed to people with COVID while here he had labs done and RSV COVID and influenza are negative. Patient oxygen saturations been 98 and 100% throughout his stay here in an auscultation has no wheezing he does state that he has been having coughing spells with green sputum. Chest x-ray did not show pneumonia is at baseline. Patient will be treated with antibiotics for acute bacterial bronchitis due to the fact that he is a COPD patient and will need to follow-up with his primary care doctor but at this time he is able to go home. Saturation is normal Data Review Analysis All the data on this patient was reviewed by me including laboratory and imaging studies as well as bedside studies performed by me Independent review of Studies Imaging Chest x-ray does not show any infiltrate Lab: COVID-19 influenza and RSV are negative Risk Stratification: Patient with COPD who has a normal oxygen saturation coughing and x-ray does not show pneumonia who will be safely discharged home on antibiotics due to the fact that he has COPD Differential Diagnosis: 1. Acute bacterial bronchitis 2.COVID-19 infection 3. Influenza 4. Pneumonia 5. COPD exacerbation Consultants: Shared disposition: Patient understands this patient will be discharged home Impression: Medical Records Medical records reviewed: Yes I reviewed the patient's medical records. HPI General Date/Time Provider Initiated Documentation: 10/15/23 13:59 . HPI Narrative: Patient presents emergency department stating that he was exposed to people with COVID and a cold 4 days ago and since Sunday he has been experiencing cough congestion productive green sputum. Denies any shortness of breath reports rhinorrhea and congestion. Patient has COPD and he states he has been in inhalers at home does oxygen saturation at home has been normal. Denies any chest pain Related Data Home Medications Medication Instructions Recorded Confirmed albuterol sulfate 90 mcg/actuation 2 puff inhalation PRN 07/31/17 04/17/23 aerosol inhaler (ProAir HFA) guaifenesin 600 mg tablet, 600 mg PO BID 05/23/20 10/15/23 extended release 12 hr (Mucinex) loratadine 10 mg tablet (Claritin) 10 mg PO DAILY 05/23/20 10/15/23 furosemide 40 mg tablet 40 mg PO DAILY 07/02/20 10/15/23 gabapentin 600 mg tablet 600 mg PO BID 07/02/20 10/15/23 albuterol sulfate 2.5 mg/3 mL 2.5 mg inhalation QID PRN PRN 11/11/20 10/15/23 (0.083 %) solution for nebulization theophylline 400 mg 400 mg PO BID 11/24/20 10/15/23 tablet,extended release azithromycin 250 mg tablet 250 mg PO DAILY #90 tabs 10/18/22 10/15/23 fluticasone fur. 200 mcg-umeclid 1 inh inhalation DAILY #60 ea 10/18/22 10/15/23 62.5 mcg-vilant 25 mcg inhalat.powder (Trelegy Ellipta) Oxygen #1 ea 10/20/22 04/17/23 omeprazole 20 mg capsule,delayed 20 mg PO DAILY PRN 01/17/23 10/15/23 release amoxicillin 875 mg-potassium 1 tab PO BID #14 tabs 10/15/23 clavulanate 125 mg tablet mirtazapine 30 mg tablet mg 10/15/23 Previous Rx's Medication Instructions Recorded azithromycin 250 mg tablet 250 mg PO DAILY #90 tabs 10/18/22 fluticasone fur. 200 mcg-umeclid 1 inh inhalation DAILY #60 ea 10/18/22 62.5 mcg-vilant 25 mcg inhalat.powder (Trelegy Ellipta) Oxygen #1 ea 10/20/22 amoxicillin 875 mg-potassium 1 tab PO BID #14 tabs 10/15/23 clavulanate 125 mg tablet Allergies Allergy/AdvReac Type Severity Reaction Status Date / Time pineapple Allergy Severe Anaphylaxsi Unverified 10/15/23 14:58 s lysol Allergy Severe Anaphylaxsi Uncoded 10/15/23 14:58 s General Stated Complaint: RespSymp BRUCE: 3 Review of Systems Narrative: Review of Systems: Constitutional: No fevers, chills, sweats Eye: No recent visual problems ENT: No ear pain, nasal congestion, sore throat Respiratory: No shortness of breath, Cardiovascular: No Chest pain, palpitations, syncope Gastrointestinal: No nausea, vomiting, diarrhea Genitourinary: No hematuria Gabriel/Lymph: Negative for bruising tendency, swollen lymph glands Endocrine: Negative for excessive thirst, excessive hunger Musculoskeletal: No back pain, neck pain, joint pain, muscle pain, decreased range of motion Integumentary: No rash, pruritus, abrasions Neurologic: Alert & oriented X 4 Psychiatric: No anxiety, depression PFSH All Active Problems (Updated 10/15/23 @ 15:10 by Jonathan Garcia MD) Acute bacterial bronchitis (Acute) Respiratory failure with hypoxia (Acute) Chews tobacco (Acute) High cholesterol (Chronic) Personal history of nicotine dependence (Acute) Asthma-COPD overlap syndrome (Acute) History of COVID-19 (Acute) COVID (Acute) Medical History Restless leg syndrome Hypothyroidism COPD (chronic obstructive pulmonary disease) Granulomatous lung disease Multiple nodules of lung Acid reflux Family History Father Lung disease Cancer Mother Asthma Lung disease Allergies Social History Smoking/Tobacco Use Status: Former Tobacco Use Smoking risk assessment performed?: Yes Alcohol Intake: never Drug use: Never Substance use type: does not use Current gender identity: male Do you feel safe at home: Yes Do you feel safe in your relationship?: Yes Exam Narrative Exam Narrative: Exam; vitals signs as reported above normal Constitutional; In no acute distress, afebrile General: cooperative, healthy appearing, comfortable and no acute distress HEENT: Head: normal to inspection, no palpable skull fracture and normocephalic atraumatic Eyes: : appearance normal, both eyes and all related structures EOM intact bilaterally Pupils: PERRL : conjunctiva normal Direct ophthalmoscopy: normal light reflex, normal conjunctiva, normal visual acuity Ears: Normal TM, normal external canal Nose: normal clear rhinorrhea Neck no JVD, supple non tender Neck: normal visual inspection, full ROM and no lymphadenopathy Chest: normal inspection of the chest Respiratory : normal respiratory effort and able to speak in complete sentences no wheezing no rales auscultated Cardio Rate: regular rate, rhythm: regular rhythm normal heart sounds S1 and S2 no murmurs, gallops, or rubs GI : normal to inspection, normal bowel sounds, soft, non tender, non distended, no organomegaly Back/Spine/ no CVA tenderness Thoracic/Lumbar Spine: no tenderness or deformities Skin no rashes or lesions Neuro: patient alert oriented x 4 and no meningeal signs, Cranial Nerves: CN's II-XI intact bilaterally, Cognition: normal cognition, Speech: speech normal, Gait: normal gait, Depp tendon reflexes normal 2+ muscle strength 5/5 bilaterally Extremities, no edema, full range of motion, normal strength Course Vital Signs Vital signs: Vital Signs Temperature 37.0 C 10/15/23 13:52 Pulse 111 H 10/15/23 13:52 Respiratory Rate 16 10/15/23 13:52 Blood Pressure 143/93 H 10/15/23 13:52 Pulse Oximetry 97 10/15/23 13:52 Temperature 37.0 C 10/15/23 13:52 Temperature Source Skin 10/15/23 13:52 Pulse 111 H 10/15/23 13:52 Respiratory Rate 16 10/15/23 13:52 Respiratory Effort Short of Breath 10/15/23 14:13 Respiratory Depth Normal 10/15/23 14:13 Blood Pressure 143/93 H 10/15/23 13:52 Pulse Oximetry 97 10/15/23 13:52 Oxygen Delivery Method Nasal Cannula 10/15/23 13:52 Oxygen Flow Rate 2 10/15/23 13:52 Pain Level 6 10/15/23 13:52 Comment states pain is in central chest and headache. 10/15/23 13:52
[2023-10-15 14:43] LABS: COVID-19 PCR Negative (Negative); Influenza A PCR Negative (Negative); Influenza B PCR Negative (Negative); RSV PCR Negative (Negative)
[2023-10-15 14:44] LABS: Source Nasopharynx
[2023-10-15] MEDS: Amoxicillin 875/Clav. 125 TAB PO (15:20)
== END 2023-10-15 15:21 | disposition home or self-care (01) ==
PROVIDERS: Emergency Provider Emergency Medicine Emergency Medical Services; PCP Internal Medicine
DX: J20.8 Acute bronchitis due to other specified organisms (principal); J44.9 Chronic obstructive pulmonary disease, unspecified; E03.9 Hypothyroidism, unspecified; Z20.822 Contact with and (suspected) exposure to COVID-19; Z87.891 Personal history of nicotine dependence; Z99.81 Dependence on supplemental oxygen
CPT/HCPCS: 87637; 93005; 99283; 71045; 93010

== ENCOUNTER → 2023-10-31 10:51 | Outpatient (BNVA) | payer MEDICARE, MEDICAID, SELFPAY | PROVIDERS: PCP Internal Medicine; Referring Provider Internal Medicine; Visit Provider Physician Assistant Surgical | DX: J44.9 Chronic obstructive pulmonary disease, unspecified (principal); R91.8 Other nonspecific abnormal finding of lung field; J96.91 Respiratory failure, unspecified with hypoxia; Z87.891 Personal history of nicotine dependence | CPT/HCPCS: 99214 ==

== ENCOUNTER → 2023-11-15 12:35 | Outpatient (CLI) | payer MEDICARE, MEDICAID, SELFPAY ==
--- NOTE | 2023-11-15 11:45 | DI.RAD_ITS ---
Exam(s) XR CHEST 2V PA LATERAL EXAM: XR CHEST 2V PA LATERAL CLINICAL HISTORY: dyspnea, not improved with steroids, R06.00 TECHNIQUE: 2D digital imaging was performed. COMPARISON: CR XR PORTABLE CHEST AP from 10/15/2023 FINDINGS: HEART: Normal size. Aorta: Not dilated. PULMONARY VASCULATURE: Normal. LUNGS: Facet eminence changes. Mild basilar scarring, otherwise clear. Calcified hilar lymph node o n the left again noted. Calcified granuloma in the left lower lobe. PLEURAL SPACE: No pleural effusion or pneumothorax. BONE:Unremarkable for age. Soft tissues: Unremarkable. IMPRESSION: Emphysematous changes. No acute abnormality. DATA REPOSITORY: RADIATION DOSE DELIVERED:
== END ==
PROVIDERS: PCP Internal Medicine; Visit Provider Student in an Organized Health Care Education/Training Program
DX: R06.00 Dyspnea, unspecified (principal); J43.9 Emphysema, unspecified
CPT/HCPCS: 71046

== ENCOUNTER 2023-12-27 07:39 | Outpatient (REF) | payer MEDICARE, SELFPAY ==
[2023-12-26 21:50] LABS: Abs Immature Grans 0.03 10^3/uL (0.0-0.06); Absolute Basophil Count 0.06 10^3/uL (0.0-0.2); Absolute Eosinophil Count 0.15 10^3/uL (0.0-0.7); Absolute Lymphocyte Count 1.24 10^3/uL (1.2-3.4); Absolute Monocyte Count 0.46 10^3/uL (0.1-0.8); Basophils % 0.8; HCT 42.8 % (40.0-50.0); HGB 14.1 g/dL (13.5-17.5); Immature Grans % 0.4; Lymphocytes % 16.9; MCH 28.2 pg (27.0-33.0); MCHC 32.9 % (32.0-36.0); MCV 86 fL (80-95); MPV 10.1 fL (8.0-11.0); Monocytes % 6.3; Neutrophils % 73.6; Platelet Count 288 10^3/uL (130-400); RDW-SD 37.5 fL; WBC 7.34 10^3/uL (4.4-10.8)
[2023-12-26 22:05] LABS: Hemoglobin A1C 5.9 % (<5.7)
[2023-12-26 22:18] LABS: ALT 13 U/L (16-63); AST 9 U/L (15-37); Albumin 3.9 g/dL (3.4-5.0); Alkaline Phosphatase 93 U/L (46-116); Anion Gap 10.2 mmol/L (3-11); BUN 9 mg/dL (7-18); Bilirubin, Total 0.3 mg/dL (0.2-1.0); CO2 28.8 mmol/L (21.0-32.0); CREATININE 0.8 mg/dL (0.70-1.30); Calcium 9.6 mg/dL (8.5-10.1); Chloride 104 mmol/L (98-107); Estimated GFR 101.32 (mL/min/1.73m2); Ferritin 320 ng/mL (26-388); Glucose 112 mg/dL (74-106); Magnesium 2.2 mg/dL (1.8-2.4); Sodium 143 mmol/L (136-145); TSH (W/Ref FT4) 4.12 uIU/mL (0.36-3.74); Total Protein 7.1 g/dL (6.4-8.2)
[2023-12-26 22:37] LABS: FREE T4 0.97 ng/dL (0.76-1.46)
== END 2023-12-27 07:40 ==
LOC: NCHCN 07:39
PROVIDERS: PCP Internal Medicine; Visit Provider Family Medicine
DX: R73.03 Prediabetes (principal); J44.9 Chronic obstructive pulmonary disease, unspecified
CPT/HCPCS: 80053; 80198; 82728; 83036; 83735; 84439; 84443; 85025

== ENCOUNTER → 2024-01-10 00:17 | Outpatient (CLI) | payer MEDICARE, SELFPAY ==
--- NOTE | 2024-01-10 07:00 | DI.CT_ITS ---
Exam(s) CT CHEST WO EXAM: CT CHEST WO CLINICAL HISTORY: f/u pulmonary nodules,asthma copd overlap syndrome,r91.8,j44.9. TECHNIQUE: Imaging protocol: Axial computed tomography images were obtained and coronal and sagittal reformatted images were created and reviewed. COMPARISON: CT CT CHEST WO from 10/01/[address] CHEST PE CTA from 09/10/[address] CHEST WO from 12/27/[address] ABDOMEN PELVIS W from 04/18/2023 FINDINGS: Tracheobronchial tree: Patent where visualized. Pulmonary parenchyma: Moderately severe centrilobular emphysematous changes are present. Calcified g ranulomas are present in the lungs. No noncalcified pulmonary nodules are present. Parenchymal scar ring is again seen in the lungs. No focal consolidating infiltrates are present. Mediastinum and Maxine: No dominant adenopathy or fluid collection. The esophagus is unremarkable.There are calcified mediastinal and hilar lymph nodes consistent with prior granulomatous disease. Thyroid gland: Unremarkable. Pleura: No effusion or pneumothorax. Heart: The heart is not dilated. No coronary artery calcifications are seen. No pericardial effusion. Aorta: Thoracic aorta non-dilated. Atherosclerotic calcification is present. Upper abdomen: Calcified granulomas are seen in the spleen and liver. Lymph nodes: Within normal limits. Soft tissues: Bilateral gynecomastia. Bones:Within normal limits for the patient's age. IMPRESSION: 1. Findings of prior granulomatous disease in the lungs, lymph nodes, liver and spleen. 2. No noncalcified pulmonary nodules. 3. Moderately severe centrilobular emphysema. 4. No acute pulmonary process. RADIATION DOSE DELIVERED: 669.42mGy.cm Total DLP 669.42mGy.cm Total DLP DATA REPOSITORY: All CT scans at this facility are submitted to the National Radiology Data Registry (NRDR) Dose Index Registry (DIR) with the [employer] ([employer]). RADIATION OPTIMIZATION: All CT scans at this facility use at least one of these dose optimization te chniques: automated exposure control; mA and/or kV adjustment per patient size (includes targeted exa ms where dose is matched to clinical indication); or iterative reconstruction.
== END ==
PROVIDERS: PCP Nurse Practitioner Family; Visit Provider Physician Assistant Surgical
DX: J44.9 Chronic obstructive pulmonary disease, unspecified (principal); R91.8 Other nonspecific abnormal finding of lung field
CPT/HCPCS: 71250

== ENCOUNTER 2024-01-10 11:43 | Outpatient (CLI) | payer MEDICARE, SELFPAY ==
[2024-01-10 18:56] LABS: Theophylline 11.9 ug/mL (10.0-20.0)
== END 2024-01-10 11:44 | disposition home or self-care (01) ==
LOC: LBO 11:43
PROVIDERS: PCP Nurse Practitioner Family; Visit Provider Student in an Organized Health Care Education/Training Program
DX: J44.9 Chronic obstructive pulmonary disease, unspecified (principal)
CPT/HCPCS: 36415; 71250; 80198

== ENCOUNTER → 2024-02-14 12:33 | Outpatient (BNVA) | payer MEDICARE, MEDICAID, SELFPAY | PROVIDERS: PCP Nurse Practitioner Family; Referring Provider Internal Medicine; Visit Provider Physician Assistant Surgical | DX: J44.9 Chronic obstructive pulmonary disease, unspecified (principal); R91.8 Other nonspecific abnormal finding of lung field; J96.91 Respiratory failure, unspecified with hypoxia; Z72.0 Tobacco use | CPT/HCPCS: 94618; 99214 ==

== ENCOUNTER 2024-12-18 09:25 | Emergency (ER) | payer MEDICARE, MEDICAID, SELFPAY ==
[2024-12-18] VITALS (30 sets, daily range): BP systolic 107–151; BP diastolic 65–89; PULSE 62–129; RESP 7–26; TEMP 36.5; O2SAT 94–100
--- NOTE | 2024-12-18 09:15 | RT.EKG_ITS ---
APPROVED REPORT Exam: Resting ECG Reason for Exam: Difficulty Breathing Patient Location: E HR:104 bpm ECG Measurements Heart Rate 104 AXIS CA 148 P 90 QRSd 73 QRS 0 QT 310 T 78 QTc 408 Conclusion Sinus tachycardia. [address] changes no stemi
--- NOTE | 2024-12-18 09:37 | ED.GENADUL_ITS ---
Discharge Plan Disposition Patient Disposition: Home Condition: Stable Discharge Details Clinical Impression: Chronic bronchitis with productive mucopurulent cough Primary Care Provider: Joceline Ac ED Provider: Yennifer Serrano Home Meds and New Rx's Prescriptions: Continued (DME) Oxygen Tank See Rx Instructions .Route Qty: 1 0RF Rx Instructions: 2LPM at rest, 4LPM with exertion Breztri Aerosphere 160-9-4.8 mcg/actuation HFA aerosol inhaler 2 inh inhalation BID Qty: 10.7 12RF gabapentin 600 mg tablet 600 mg PO BID furosemide 40 mg tablet 40 mg PO DAILY omeprazole 20 mg capsule,delayed release(DR/EC) 20 mg PO DAILY PRN Trelegy Ellipta 200-62.5-25 mcg blister with device See Rx Instructions .ROUTE .COMPLEX Qty: 60 12RF Dose Instruction: INHALE 1 PUFF BY MOUTH DAILY Rx Instructions: INHALE 1 PUFF BY MOUTH DAILY albuterol sulfate 2.5 mg /3 mL (0.083 %) Solution For Nebulization 2.5 mg inhalation QID PRN PRN theophylline 400 mg Tablet Extended Release 400 mg PO BID mirtazapine 30 mg tablet 30 mg PO QHS Patient Comments: TAKE ONE TABLET BY MOUTH AT BEDTIME levofloxacin 750 mg tablet 750 mg PO DAILY Patient Comments: TAKE ONE TABLET BY MOUTH EVERY DAY FOR 7 DAYS albuterol sulfate [ProAir HFA] 200 PUFF HFA aerosol inhaler 2 puff Inhalation DAILY PRN loratadine [Claritin] 10 mg Tablet 10 mg PO DAILY guaifenesin [Mucinex] 600 mg Tablet Extended Release 12hr 600 mg PO BID Discharge Instructions Instructions: Chronic bronchitis Additional Instructions: At this time it appears that the respiratory infection is improving, your labs are all negative for COVID flu and RSV. Please continue the antibiotics as previously prescribed. Follow up with primary care provider in 3-5 days. Return to ED sooner if any worsening or concerns. Increase oral fluids. Please take Tylenol or Ibuprofen with food every 4-6 hours as needed for pain and swelling. Thank you for allowing us to care for you today. Referrals: Joceline Ac [Primary Care Provider] - 3 days Discharge Data Discharge Date/Time-TO BE ENTERED AT DEPARTURE: 12/18/24 12:22 HPI General Mode of arrival: EMS . Date/Time Provider Initiated Documentation: 12/18/24 09:27 . Limitations to Documentation: no limitations . Information obtained by: patient, EMS, RN notes reviewed and old records reviewed . HPI Narrative: 59-year-old male presents to the ER via EMS chief complaint of shortness of breath and trouble breathing. Does have a history of COPD and granulomatous lung disease, GERD hypothyroidism and restless leg syndrome, he reports that he has been on at Augmentin. He has been taking this as directed. He was able to complete neb on scene prior to transport and EMS gave him a DuoNeb and route. On arrival he is speaking in full sentences, O2 sat is 98% on his normal 4 L nasal cannula. He reports he uses 2 L at night. Related Data Home Medications ?Medication ?Instructions ?Recorded ?Confirmed albuterol sulfate 90 mcg/actuation 2 puff inhalation DAILY PRN 07/31/17 12/18/24 aerosol inhaler (ProAir HFA) guaifenesin 600 mg tablet, 600 mg PO BID 05/23/20 12/18/24 extended release 12 hr (Mucinex) loratadine 10 mg tablet (Claritin) 10 mg PO DAILY 05/23/20 12/18/24 furosemide 40 mg tablet 40 mg PO DAILY 07/02/20 12/18/24 gabapentin 600 mg tablet 600 mg PO BID 07/02/20 12/18/24 albuterol sulfate 2.5 mg/3 mL 2.5 mg inhalation QID PRN PRN 11/11/20 12/18/24 (0.083 %) solution for nebulization theophylline 400 mg 400 mg PO BID 11/24/20 12/18/24 tablet,extended release Oxygen #1 ea 10/20/22 12/18/24 omeprazole 20 mg capsule,delayed 20 mg PO DAILY PRN 01/17/23 12/18/24 release mirtazapine 30 mg tablet 30 mg PO QHS 10/15/23 12/18/24 fluticasone fur. 200 mcg-umeclid See Rx Instructions .Route 11/09/23 12/18/24 62.5 mcg-vilant 25 mcg .COMPLEX #60 blisters inhalat.powder (Trelegy Ellipta) budesonide 160 mcg-glycopyr 9 2 inh inhalation BID #10.7 grams 02/14/24 12/18/24 mcg-formot 4.8 mcg/actuation HFA inhaler (Breztri Aerosphere) levofloxacin 750 mg tablet 750 mg PO DAILY 12/18/24 12/18/24 Previous Rx's ?Medication ?Instructions ?Recorded Oxygen #1 ea 10/20/22 fluticasone fur. 200 mcg-umeclid See Rx Instructions .Route 11/09/23 62.5 mcg-vilant 25 mcg .COMPLEX #60 blisters inhalat.powder (Trelegy Ellipta) budesonide 160 mcg-glycopyr 9 2 inh inhalation BID #10.7 grams 02/14/24 mcg-formot 4.8 mcg/actuation HFA inhaler (Breztri Aerosphere) Allergies Allergy/AdvReac Type Severity Reaction Status Date / Time pineapple Allergy Severe Anaphylaxsi Unverified 12/18/24 10:38 s lysol Allergy Severe Anaphylaxsi Uncoded 12/18/24 10:38 s General BRUCE: 3 Review of Systems All systems reviewed & are unremarkable except as noted in HPI and below Cardiovascular Cardiovascular: Reports dyspnea Respiratory Respiratory: Reports chest congestion, Reports cough, Reports excessive phlegm production and Reports dyspnea Exam Narrative Exam Narrative: Constitutional: Alert and oriented x3. Appears stated age. Normal body habitus. Head: Normocephalic, no trauma. Eyes: Pupils PERRL, Red reflex noted, EOM's intact. Eyelids symmetrical without lesions, discharge, or swelling. ENT: Bilateral TM's WNL, External ear normal to inspection, no mastoid TTP, swelling, or erythema, Nasal turbinates WNL, no nasal discharge. Normal dentition, Posterior pharynx WNL, no exudate. Chest: RRR, Normal S1, S2, distal pulses intact. Resp: Lungs clear to auscultation bilaterally, no wheezes, rales, or rhonchi. Abdomen: Soft, non-distended, Normoactive bowel sounds all 4 quads. Musculoskeletal: Normal gait, Moves all 4 extremities without difficulty. Skin: No suspicious rashes or lesions. Capillary refill less than 2 sec. Neurologic: Cranial nerves II-XII intact. Alert and oriented x 3. Motor: No deficits noted. Sensory: Intact bilaterally all 4 extremities. Hematologic/Lymphatic: No ecchymosis, no lymphadenopathy. Medical Decision Making 59-year-old male presents to the ER via EMS chief complaint of shortness of breath and trouble breathing. Does have a history of COPD and granulomatous lung disease, GERD hypothyroidism and restless leg syndrome, he reports that he has been on at Augmentin. He has been taking this as directed. He was able to complete neb on scene prior to transport and EMS gave him a DuoNeb and route. On arrival he is speaking in full sentences, O2 sat is 98% on his normal 4 L nasal cannula. He reports he uses 2 L at night. Workup ordered including CBC CMP VBG, Fluvid. Chest x-ray. X-ray shows no acute abnormalities. Patient has been hemodynamically stable satting 98-99 throughout his stay here. Will discharge home negative COVID flu RSV. Imaging Data Radiologic Study: Imaging: X-Ray Radiologist's impression: COMPARISON: CR XR PORTABLE CHEST AP from 10/15/2023 FINDINGS: MEDIASTINUM: Normal. HEART: Normal. PULMONARY VASCULATURE: Normal. LUNGS: The lungs are hyperinflated. There are hyperlucent superiorly likely reflecting underlying COPD. No focal consolidating infiltrates are present. PLEURAL SPACE: No pleural effusion or pneumothorax. BONE:Within normal limits for the patient's age. OTHER FINDINGS:Normal. IMPRESSION: No acute pulmonary findings. Lab Data Lab results reviewed: Yes I reviewed the patient's lab results. Labs: Laboratory Tests Range/Units 12/18/24 12/18/24 12/18/24 09:24 09:37 09:58 WBC (4.4-10.8) 10^3/uL 9.49 RBC (4.36-5.78) 10^6/uL 5.01 Hgb (13.5-17.5) g/dL 14.4 Hct (40.0-50.0) % 43.7 MCV (80-95) fL 87 MCH (27.0-33.0) pg 28.7 MCHC (32.0-36.0) % 33.0 RDW (11.8-14.1) % 13.1 Plt Count (130-400) 10^3/uL 256 MPV (8.0-11.0) fL 9.6 Immature Gran % % 0.9 Neutrophils % % 57.9 Lymphocytes % % 32.1 Monocytes % % 7.4 Eosinophils % % 1.3 Basophils % % 0.4 Nucleated RBC % (0.0-0.3) % 0.0 Absolute Neutrophils (1.2-6.7) 10^3/uL 5.49 Absolute Lymphocytes (1.2-3.4) 10^3/uL 3.05 Absolute Monocytes (0.1-0.8) 10^3/uL 0.70 Absolute Eosinophils (0.0-0.7) 10^3/uL 0.12 Absolute Basophils (0.0-0.2) 10^3/uL 0.04 VBG pH (7.31-7.41) 7.36 VBG pCO2 (41-51) mmHg 58 H VBG pO2 mmHg 39 VBG HCO3 (23-28) mmol/L 33 H VBG Total CO2 (24-29) mmol/L 29 VBG O2 Saturation % 71 VBG Base Excess (-2-3) mmol/L 7 H Carboxyhemoglobin % Cancelled Sodium (136-145) mmol/L 142 Potassium (3.5-5.1) mmol/L 3.1 L Chloride (98-107) mmol/L 104 Carbon Dioxide (21.0-32.0) mmol/L 33.8 H Anion Gap (3-11) mmol/L 4.2 BUN (7-18) mg/dL 16 Creatinine (0.70-1.30) mg/dL 1.2 Est GFR (CKD-EPI 2020) (mL/min/1.73m2) 68.80 Glucose (74-106) mg/dL 117 H Calcium (8.5-10.1) mg/dL 9.5 Total Bilirubin (0.2-1.0) mg/dL 0.32 AST (15-37) U/L 11 L ALT (16-63) U/L 10 L Alkaline Phosphatase (46-116) U/L 80 Total Protein (6.4-8.2) g/dL 6.7 Albumin (3.4-5.0) g/dL 3.3 L COVID-19 Source Nasopharynx SARS-CoV-2 (PCR) (Negative) Negative Influenza Type A (PCR) (Negative) Negative Influenza Type B (PCR) (Negative) Negative RSV (PCR) (Negative) Negative Quality:SDOH Health Related Social Needs: No Data to Display PFSH All Active Problems (Updated 12/18/24 @ 12:06 by Yennifer Serrano NP) Chronic bronchitis with productive mucopurulent cough (Acute) Dyspnea (Acute) Respiratory failure with hypoxia (Acute) Chews tobacco (Acute) High cholesterol (Chronic) Personal history of nicotine dependence (Acute) Asthma-COPD overlap syndrome (Acute) History of COVID-19 (Acute) COVID (Acute) Medical History Restless leg syndrome Hypothyroidism COPD (chronic obstructive pulmonary disease) Granulomatous lung disease Multiple nodules of lung Acid reflux Family History Father Lung disease Cancer Mother Asthma Lung disease Allergies Social History Smoking/Tobacco Use Status: Former Tobacco Use Smoking risk assessment performed?: Yes Alcohol Intake: never Drug use: Never Substance use type: does not use Housing: house Current gender identity: male Do you feel safe at home: Yes Do you feel safe in your relationship?: Yes
[2024-12-18 09:46] LABS: BE (Venous) 7 mmol/L (-2-3); HCO3 (Venous) 33 mmol/L (23-28); O2 Sat (Venous) 71 %; TCO2 (Venous) 29 mmol/L (24-29); pCO2 (Venous) 58 mmHg (41-51); pH (Venous) 7.36 (7.31-7.41); pO2 (Venous) 39 mmHg
[2024-12-18 09:50] LABS: Abs Immature Grans 0.09 10^3/uL (0.0-0.06); Absolute Basophil Count 0.04 10^3/uL (0.0-0.2); Absolute Eosinophil Count 0.12 10^3/uL (0.0-0.7); Absolute Lymphocyte Count 3.05 10^3/uL (1.2-3.4); Absolute Neutrophil Count 5.49 10^3/uL (1.2-6.7); Basophils % 0.4 %; Eosinophils % 1.3 %; HCT 43.7 % (40.0-50.0); HGB 14.4 g/dL (13.5-17.5); Immature Grans % 0.9 %; Lymphocytes % 32.1 %; MCH 28.7 pg (27.0-33.0); MCV 87 fL (80-95); MPV 9.6 fL (8.0-11.0); Monocytes % 7.4 %; Neutrophils % 57.9 %; Platelet Count 256 10^3/uL (130-400); RBC 5.01 10^6/uL (4.36-5.78); RDW 13.1 % (11.8-14.1); RDW-SD 40.8 fL; WBC 9.49 10^3/uL (4.4-10.8)
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
[2024-12-18 10:11] LABS: ALT 10 U/L (16-63); AST 11 U/L (15-37); Albumin 3.3 g/dL (3.4-5.0); Alkaline Phosphatase 80 U/L (46-116); Anion Gap 4.2 mmol/L (3-11); BUN 16 mg/dL (7-18); Bilirubin, Total 0.32 mg/dL (0.2-1.0); CO2 33.8 mmol/L (21.0-32.0); CREATININE 1.2 mg/dL (0.70-1.30); Calcium 9.5 mg/dL (8.5-10.1); Chloride 104 mmol/L (98-107); Glucose 117 mg/dL (74-106); Potassium 3.1 mmol/L (3.5-5.1); Sodium 142 mmol/L (136-145); Total Protein 6.7 g/dL (6.4-8.2)
--- OUTSIDE RECORDS SUMMARY | 2024-12-18 10:16 | XMS_ITS | Encounter Summary ---
Author Organization [facility] Address [address] [place] [address] Care Team Providers Care Diet Aide Name Role Phone Unavailable Primary Care Provider Unavailabl e Encounter Details Date Type Department Care Team (Late st Contact Info) Description 06/13/2022 Lab Requisition [facility] Pathology & Laboratory Medicine - [facility] [address] [place] [address] Outr Resulting Lab, Provider Social History Tobacco Use Types Packs/Day Years Used Date Smoking Tobacco: Never Assessed Interpersonal Safety Answer Date Record ed Physically Hurt Never 11/04/2020 Verbally Threaten Not on file 11/04/2020 Sex and Gender Information Value Date Recorded Sex Assigned at Not on file Legal Sex Male 10:04 EST Gender Identity Not on file Sexual Orientation Not on file documented as of this encounter Plan of Treatment Not on file documented as of this encounter Procedures Procedure Name Priority Date/Time Associated Diagnosis Comments THEOPHYLLINE Routine 06/12/2022 16:50 EDT documented in this encounter Results * THEOPHYLLINE (06/12/2022 16:50 EDT) Theophylline 11.5 10.0 - 20.0 ug/mL 06/13/2022 18:25 EDT [facility] Blood VENOUS BLOOD / Unknown 06/12/2022 16:50 EDT 06/13/2022 16:23 EDT us Provider Outr Resulting Lab CHEMISTRY & BLOOD GA S ORDERABLES Final Result [facility] [address] [place] [address] documented in this encounter Visit Diagnoses Not on filedocumented in this encounter
--- OUTSIDE RECORDS SUMMARY | 2024-12-18 10:16 | XMS_ITS | Clinical Summary ---
Author Organization [facility] Address [address] [place] [id number] Care Team Providers Care Telegraph Repeater Mechanic Name Role Phone Unavailable Primary Care Provider Unavailabl e Social History Tobacco Use Types Packs/Day Years Used Date Smoking Tobacco: Never Assessed Interpersonal Safety Answer Date Record ed Physically Hurt Never 11/04/2020 Verbally Threaten Not on file 11/04/2020 Sex and Gender Information Value Date Recorded Sex Assigned at Not on file Legal Sex Male 10:04 EST Gender Identity Not on file Sexual Orientation Not on file Plan of Treatment Health Maintenance Due Date Last Done Comments Hepatitis C Screen 1965 COVID-19 Vaccine (2023-25 season) 2024 RSV Immunization ( o r 60+ Years) (1 - 1-dose 75+ series) 2038
--- OUTSIDE RECORDS SUMMARY | 2024-12-18 10:16 | XMS_ITS | Encounter Summary ---
Author Organization [facility] Address [address] [place] [address] Care Team Providers Care Clip Coater Name Role Phone Unavailable Primary Care Provider Unavailabl e Encounter Details Date Type Department Care Team (Late st Contact Info) Description 11/02/2020 Lab Requisition [facility] Pathology & Laboratory Medicine - [facility] [address] [place] [address] Outr Resulting Lab, Provider Social History Tobacco [...] Procedure Name Priority Date/Time Associated Diagnosis Comments DO NOT ORDER STANDALONE - [facility] COVID TEST Today 11/01/2020 16:30 EST COVID-19 TESTING Routine 11/01/2020 16:3 0 EST documented in this encounter Results * DO NOT ORDER STANDALONE - [facility] COVID TEST (11/01/2020 16:30 EST) COVID-19 rt-PCR Result NEGATIVE Negative 11/04/2020 19:09 EST [facility] Comment: 2019-novel Coronavirus (2019-nCoV) not detected by the qRT-PCR assay. Consider testing for other respiratory viruses or re-collecting for 2019-nCoV testing. Note: Optimum timing for peak viral levels during infections caused by 2019-nCoV have not been determined. Collection of multiple specimens from the same patient may be necessary to detect the virus. Limitations Positive results are indicative of active infection with SARS-CoV-2 but do not rule out bacterial infection or co-infection with other viruses. The agent detected may not be the definite cause of disease. In addition, detection of viral RNA may not indicate the presence of infectious virus or that SARS-CoV-2 is the causative agent for clinical symptoms. Negative results do not preclude SARS-CoV-2 infection and should not be used as the sole basis for patient management decisions. Negative results must be combined with clinical observations, patient history, and epidemiological information. False negative results may also occur if amplification inhibitors are present in the specimen or if inadequate numbers of organisms are present in the specimen. Optimum specimen types and timing for peak viral levels during infections caused by SARS-CoV-2 have not been fully determined. Collection of multiple specimens (types and time points) from the same patient may be necessary to detect the virus. The test was validated for use with upper respiratory specimens obtained via nasopharyngeal or oropharyngeal swabs in VTM, UTM, M4, M5, M6, saline, and MTM media. The performance of this test has not been established for other specimens. Specimens collected using other FDA recommended Specimen Collection Materials listed in the FDA COVID-19 [employer] communication (February 12, 2020) are processed with the caveat that they were not all validated for use with this test and the result must be interpreted in this context. Furthermore, a false negative results may occur if a specimen is improperly collected, transported or handled. If the virus mutates in the RT-PCR target region, SARS-CoV-2 may not be detected or may be detected less predictably. Inhibitors or other types of interference may produce a false negative result. An interference study evaluating the effect of common cold medications was not performed. This test is not FDA-cleared but its performance characteristics were established by our CLIA-certified, CAP-accredited, high complexity laboratory in accordance with CLIA regulations, [employer] (CAP) guidelines (Feb 05, 2020), and FDA guidance (Jan 17, 2020). This test is only for use under the Food and Drug Administration's Emergency Use Authorization. Swab ENTIRE NASOPHARYNX / Unknown 11/01/2020 16:30 EST 11/02/2020 15:49 EST us Provider Outr Resulting Lab MICROBIOLOGY - GENER AL ORDERABLES Final Result [facility], [place] * COVID-19 TESTING (11/01/2020 16:30 EST) COVID-19 rt-PCR Result NEGATIVE Negative 11/04/2020 21:30 EST [facility] Comment: 2019-novel Coronavirus (2019-nCoV) not detected by the qRT-PCR assay. Consider testing for other respiratory viruses or re-collecting for 2019-nCoV testing. Note: Optimum timing for peak viral levels during infections caused by 2019-nCoV have not been determined. Collection of multiple specimens from the same patient may be necessary to detect the virus. Limitations Positive results are indicative of active infection with SARS-CoV-2 but do not rule out bacterial infection or co-infection with other viruses. The agent detected may not be the definite cause of disease. In addition, detection of viral RNA may not indicate the presence of infectious virus or that SARS-CoV-2 is the causative agent for clinical symptoms. Negative results do not preclude SARS-CoV-2 infection and should not be used as the sole basis for patient management decisions. Negative results must be combined with clinical observations, patient history, and epidemiological information. False negative results may also occur if amplification inhibitors are present in the specimen or if inadequate numbers of organisms are present in the specimen. Optimum specimen types and timing for peak viral levels during infections caused by SARS-CoV-2 have not been fully determined. Collection of multiple specimens (types and time points) from the same patient may be necessary to detect the virus. The test was validated for use with upper respiratory specimens obtained via nasopharyngeal or oropharyngeal swabs in VTM, UTM, M4, M5, M6, saline, and MTM media. The performance of this test has not been established for other specimens. Specimens collected using other FDA recommended Specimen Collection Materials listed in the FDA COVID-19 [employer] communication (February 12, 2020) are processed with the caveat that they were not all validated for use with this test and the result must be interpreted in this context. Furthermore, a false negative results may occur if a specimen is improperly collected, transported or handled. If the virus mutates in the RT-PCR target region, SARS-CoV-2 may not be detected or may be detected less predictably. Inhibitors or other types of interference may produce a false negative result. An interference study evaluating the effect of common cold medications was not performed. This test is not FDA-cleared but its performance characteristics were established by our CLIA-certified, CAP-accredited, high complexity laboratory in accordance with CLIA regulations, [employer] (CAP) guidelines (Feb 05, 2020), and FDA guidance (Jan 17, 2020). This test is only for use under the Food and Drug Administration's Emergency Use Authorization. Performing Lab [facility] 11/04/2020 21:30 EST [facility] Swab 11/01/2020 16:3 0 EST 11/02/2020 15:49 EST us Provider Outr Resulting Lab MICROBIOLOGY - GENER AL ORDERABLES Final Result [facility] [address] [place], [place] [id number] [place] [address] LABORATORY [place], [place] documented in this encounter Visit Diagnoses Not on filedocumented in this encounter Additional Health Concerns Infection Onset Date Last Indicated Resolved Time COVID-19 11/18/2020 11/18/2020 12/18/2020 22:1 6 EST documented as of this encounter
--- OUTSIDE RECORDS SUMMARY | 2024-12-18 10:16 | XMS_ITS | Referral Summary ---
Author Organization [facility] Address [address] [place] [address] Care Team Providers Care Lead Nurse Name Role Phone Unavailable Primary Care Provider [...] Orientation Not on file Plan of Treatment Not on file
--- OUTSIDE RECORDS SUMMARY | 2024-12-18 10:16 | XMS_ITS | Encounter Summary ---
Author Organization [facility] Address [address] [place] [address] Care Team Providers Care Patient Relations Specialist Name Role Phone Unavailable Primary Care Provider Unavailabl e Encounter Details Date Type Department Care Team (Late st Contact Info) Description 11/09/2020 Lab Requisition [facility] Pathology & Laboratory Medicine - [facility] [address] [place] [address] Outr Resulting Lab, Provider Social History Tobacco [...] ORDER STANDALONE - [facility] COVID TEST Today 11/08/2020 13:00 EST COVID-19 TESTING Routine 11/08/2020 13:0 0 EST documented in this encounter Results * DO NOT ORDER STANDALONE - [facility] COVID TEST (11/08/2020 13:00 EST) COVID-19 rt-PCR Result NEGATIVE Negative 11/10/2020 21:18 EST [facility] Comment: 2019-novel Coronavirus [...] in accordance with CLIA regulations, [employer] (CAP) guidelines (Feb 05, 2020), and FDA guidance (Jan 17, 2020). This test is only for use under the Food and Drug Administration's Emergency Use Authorization. Swab ENTIRE NASOPHARYNX / Unknown 11/08/2020 13:00 EST 11/09/2020 15:59 EST us Provider Outr Resulting Lab MICROBIOLOGY - GENER AL ORDERABLES Final Result [facility], [place] * COVID-19 TESTING (11/08/2020 13:00 EST) COVID-19 rt-PCR Result NEGATIVE Negative 11/11/2020 0:07 EST [facility] Comment: 2019-novel Coronavirus (2019-nCoV) not detected [...] in accordance with CLIA regulations, [employer] (CAP) guidelines (Feb 05, 2020), and FDA guidance (Jan 17, 2020). This test is only for use under the Food and Drug Administration's Emergency Use Authorization. Performing Lab [facility] 11/11/2020 0:07 EST [facility] Swab 11/08/2020 13:0 0 EST 11/09/2020 15:59 EST us Provider Outr Resulting Lab MICROBIOLOGY - GENER AL ORDERABLES Final Result [facility] [address] [place], [place] [id number] [place] [address] LABORATORY [place], [place] documented in this encounter Visit Diagnoses Not on filedocumented in this encounter Additional Health Concerns Infection Onset Date Last Indicated Resolved Time COVID-19 11/18/2020 11/18/2020 12/18/2020 22:1 6 EST documented as of this encounter
--- OUTSIDE RECORDS SUMMARY | 2024-12-18 10:16 | XMS_ITS | Encounter Summary ---
Author Organization [facility] [place] [address] Care Team Providers Care Ground Support Equipment Assembler Name Role Phone Rashawn Francisco MD Primary Care Provider [phone] Encounter Details Date Type Department Care Team (Late st Contact Info) Description 10/31/2022 Orders [place] [address] Corie Anderson, SWIMMING POOL INSTALLER [facility] [place] [address] Chronic obstructive pulmonary disease, unspecified COPD type Social History Tobacco Use Types Packs/Day Years Used Date Smoking Tobacco: Never Assessed Sex and Gender Information Value Date Recorded Sex Assigned at Not on file Gender Identity Not on file Sexual Orientation Not on file documented as of this encounter Plan of Treatment Not on file documented as of this encounter Visit Diagnoses Diagnosis Chronic obstructive pulmonary disease, unspecified COPD type documented in this encounter Care Teams Ground Support Equipment Assembler Relationship Specialty Start Date End Date Rashawn Francisco MD [address] [place] [address] PCP - General 10/11/10 documented as of this encounter
--- OUTSIDE RECORDS SUMMARY | 2024-12-18 10:16 | XMS_ITS | Encounter Summary ---
Author Organization [facility] Address [address] [place] [address] Care Team Providers Care Professor Of Rhetoric Name Role Phone Unavailable Primary Care Provider Unavailabl e Encounter Details Date Type Department Care Team (Late st Contact Info) Description 12/14/2020 Lab Requisition [facility] Pathology & Laboratory Medicine - [address] [address] Outr Resulting Lab, Provider Social History Tobacco [...] Priority Date/Time Associated Diagnosis Comments THEOPHYLLINE Routine 12/14/2020 11:20 EST documented in this encounter Results * THEOPHYLLINE (12/14/2020 11:20 EST) Theophylline 17.4 10.0 - 20.0 ug/mL 12/14/2020 21:31 EST [facility] Blood VENOUS BLOOD / Unknown 12/14/2020 11:20 EST 12/14/2020 20:46 EST us Provider Outr Resulting Lab CHEMISTRY & BLOOD GA S ORDERABLES Final Result [facility] [address] [place] [address] documented in this encounter Visit Diagnoses Not on filedocumented in this encounter Additional Health Concerns Infection Onset Date Last Indicated Resolved Time COVID-19 11/18/2020 11/18/2020 12/18/2020 22:1 6 EST documented as of this encounter
--- OUTSIDE RECORDS SUMMARY | 2024-12-18 10:16 | XMS_ITS | Encounter Summary ---
Author Organization [facility] Address [address] [place] [address] Care Team Providers Care Manager Stylist Name Role Phone Unavailable Primary Care Provider Unavailabl e Encounter Details Date Type Department Care Team (Late st Contact Info) Description 11/19/2020 Lab Requisition [facility] Pathology & Laboratory Medicine - [address] [address] Outr Resulting Lab, Provider Social History Tobacco [...] Procedure Name Priority Date/Time Associated Diagnosis Comments ZZCOVID-19 TEST [facility] PCR Today 11/18/2020 14:40 EST COVID-19 TESTING Routine 11/18/2020 14:4 0 EST documented in this encounter Results * COVID-19 TEST [facility] PCR (11/18/2020 14:40 EST) Swab ENTIRE NASOPHARYNX / Unknown 11/18/2020 14:40 EST 11/21/2020 0:42 EST us Provider Outr Resulting Lab MICROBIOLOGY - GENER AL ORDERABLES Final Result [facility] [address] [place] [address] * (ABNORMAL) COVID-19 TESTING (11/18/2020 14:40 EST) COVID-19 rt-PCR Result Positive(AA ) Negative 11/21/2020 13:10 EST [facility] Comment: This test has not been FDA cleared or approved. This test has been authorized by FDA under an EUA for use by authorized laboratories. This test has been authorized only for detection of nucleic acid from 2019-nCoV, not for any other viruses or pathogens. This test is only authorized for the duration of the declaration that circumstances exist justifying the authorization of emergency use of in vitro diagnostic tests for detection and/or diagnosis of 2019-nCoV under section 564(b)(1) of Act, 21 U.S.C ?? 360bbb-3(b) (1), unless the authorization is terminated or revoked sooner. Positive results are indicative of active infection with 2019-nCoV but do not rule out bacterial infection or co-infection with other viruses. Performed on the Nativeher Fusion instrument Performing Lab [facility] 11/21/2020 13:10 EST [facility] Swab 11/18/2020 14:4 0 EST 11/21/2020 0:42 EST us Provider Outr Resulting Lab MICROBIOLOGY - GENER AL ORDERABLES Final Result [facility] [address] [place] [address] documented in this encounter Visit Diagnoses Not on filedocumented in this encounter Additional Health Concerns Infection Onset Date Last Indicated Resolved Time COVID-19 11/18/2020 11/18/2020 12/18/2020 22:1 6 EST documented as of this encounter
--- OUTSIDE RECORDS SUMMARY | 2024-12-18 10:16 | XMS_ITS | Encounter Summary ---
Author Organization [facility] Address [address] [place] [address] Care Team Providers Care Television News Producer Name Role Phone Unavailable Primary Care Provider Unavailabl e Encounter Details Date Type Department Care Team (Late st Contact Info) Description 10/18/2022 Lab Requisition [facility] Pathology & [place] [address] Outr Resulting Lab, Provider Social History Tobacco [...] Procedure Name Priority Date/Time Associated Diagnosis Comments IGE Routine 10/18/2022 14:46 EST documented in this encounter Results * IGE (10/18/2022 14:46 EST) IgE 5 <158 IU/mL 10/20/2022 10:32 EST [facility] Blood VENOUS BLOOD / Unknown 10/18/2022 14:46 EST 10/18/2022 21:31 EST us Provider Outr Resulting Lab CHEMISTRY & BLOOD GA S ORDERABLES Final Result [facility] [address] [place] [address] documented in this encounter Visit Diagnoses Not on filedocumented in this encounter
--- OUTSIDE RECORDS SUMMARY | 2024-12-18 10:16 | XMS_ITS | Encounter Summary ---
Author Organization [facility] Address [facility] [place] [address] Care Team Providers Care Iv Rn Name Role Phone Rashawn Francisco MD Primary Care Provider [phone] Encounter Details Date Type Department Care Team (Late st Contact Info) Description 09/10/2022 Ancillary Procedure Radiology Library at [facility] [place] [phone] Rashawn Francisco MD [address] [place], [place] [id number] Social History Tobacco Use Types Packs/Day Years Used Date Smoking Tobacco: Never Assessed Sex and Gender Information Value Date Recorded Sex Assigned at Not on file Gender Identity Not on file Sexual Orientation Not on file documented as of this encounter Plan of Treatment Not on file documented as of this encounter Procedures Procedure Name Priority Date/Time Associated Diagnosis Comments FILM LIBRARY STORAGE ONLY CT CHEST Routine 09/10/2022 12:00 AM EDT documented in this encounter Results * Film Library- Storage Only CT Chest (09/10/2022 12:00 AM EDT) Narrative [facility] - 10/28/2022 12:56 AM EST This exam is auto-finalizing. It's purpose is for storage only. Rashawn Francisco MD IMG FILM LIBRARY ORD ERABLES [facility] [place], [place] documented in this encounter Visit Diagnoses Not on filedocumented in this encounter Care Teams Iv Rn Relationship Specialty Start Date End Date Rashawn Francisco MD [address] [place] [address] PCP - General 10/11/10 documented as of this encounter
--- OUTSIDE RECORDS SUMMARY | 2024-12-18 10:16 | XMS_ITS | Encounter Summary ---
Author Organization [facility] Address [address] [place] [address] Care Team Providers Care Credit Risk Modeler Name Role Phone Unavailable Primary Care Provider Unavailabl e Encounter Details Date Type Department Care Team (Late st Contact Info) Description 11/11/2020 Lab Requisition [facility] Pathology & Laboratory Medicine - [address] [address] Outr Resulting Lab, Provider Social History Tobacco [...] Comments ZZCOVID-19 TEST [facility] PCR Today 11/11/2020 12:40 EST COVID-19 TESTING Routine 11/11/2020 12:4 0 EST documented in this encounter Results * COVID-19 TEST [facility] PCR (11/11/2020 12:40 EST) Swab ENTIRE NASOPHARYNX / Unknown 11/11/2020 12:40 EST 11/11/2020 20:06 EST us Provider Outr Resulting Lab MICROBIOLOGY - GENER AL ORDERABLES Final Result [facility] [address] [place] [address] * COVID-19 TESTING (11/11/2020 12:40 EST) COVID-19 rt-PCR Result Indeterminate Negative 11/13/2020 8:46 EST [facility] Comment: Indeterminate results do not preclude 2019-nCoV infection, repeat testing is suggested if clinically indicated. Indeterminate results could mean: -low level virus near the limit of detection of the assay (very early or very late infection) -contamination of the sample with low level virus at some point in the process -nonspecific amplification This test has not been FDA cleared [...] the authorization is terminated or revoked sooner. Performed on the Bugsnagher Fusion instrument Performing Lab [place] [facility] Lab 11/13/2020 8:46 EST [facility] Swab 11/11/2020 12:4 0 EST 11/11/2020 20:06 EST us Provider Outr Resulting Lab MICROBIOLOGY - GENER AL ORDERABLES Final Result [facility] [address] [place] [address] documented in this encounter Visit Diagnoses Not on filedocumented in this encounter Additional Health Concerns Infection Onset Date Last Indicated Resolved Time COVID-19 11/18/2020 11/18/2020 12/18/2020 22:1 6 EST documented as of this encounter
--- OUTSIDE RECORDS SUMMARY | 2024-12-18 10:16 | XMS_ITS | Encounter Summary ---
Author Organization [facility] [place] [address] Care Team Providers Care Patient Safety Officer Name Role Phone Rashawn Francisco MD Primary Care Provider [phone] Encounter Details Date Type Department Care Team (Late st Contact Info) Description 04/26/2023 Telephone [place] [phone] Chrissy Sr, RN Social History Tobacco Use Types Packs/Day Years Used Date Smoking Tobacco: Never Assessed Sex and Gender Information Value Date Recorded Sex Assigned at Not on file Gender Identity Not on file Sexual Orientation Not on file documented as of this encounter Miscellaneous Notes * Telephone Encounter - Chrissy Sr, RN - 04/26/2023 9:31 AM EDT Call [phone] documented in this encounter Plan of Treatment Not on file documented as of this encounter Visit Diagnoses Not on filedocumented in this encounter Care Teams Patient Safety Officer Relationship Specialty Start Date End Date Rashawn Francisco MD [address] [place] [address] PCP - General 10/11/10 documented as of this encounter
--- OUTSIDE RECORDS SUMMARY | 2024-12-18 10:16 | XMS_ITS | Clinical Summary ---
Author Organization [facility] [place] [address] Care Team Providers Care Quality Engineering Manager Name Role Phone Rashawn Francisco MD Primary Care Provider [phone] Allergies Active Allergy Reactions Criticality Noted Date Comments Cis Free Text Allergy High lysol. Pineapple Medications Medication Sig Dispensed Refills Start Date End Date Status CIS Free Text Med - Albuterol 05/23/2005 Active CIS Free Text Med - oxygen 05/23/2005 Active traZODone (DESYREL) 50 mg tablet 05/23/2005 Active FLUTICASONE PROPIONATE (FLOVENT HFA INHL) 05/23/2005 Active salmeterol (SEREVENT DISKUS) 50 mcg/dose diskus inhaler 05/23/2005 A ctive albuterol-ipratropium (COMBIVENT) 18-103 mcg/Actuation inhaler 05/23/2005 Active tiotropium (SPIRIVA WITH HANDIHALER) 18 mcg inhalation capsule 05/23/2005 Active ipratropium-albuterol (DUONEB) 0.5 mg-3 mg(2.5 mg base)/3 mL nebulizer solution 05/23/2005 Active nitroGLYcerin (NITROSTAT) 0.4 mg SL tablet 05/23/2005 Active lisinopril (PRINIVIL;ZESTRIL) 5 mg tablet 05/23/2005 Active isosorbide mononitrate (IMDUR) 30 mg 24 hr tablet 05/23/2005 Active simvastatin (ZOCOR) 80 mg tablet 05/23/2005 Active busPIRone (BUSPAR) 5 mg tablet 05/23/2005 Active theophylline CR, 12 hour, (THEODUR) 300 mg 12 hr tablet 05/23/2005 Activ e levothyroxine (SYNTHROID) 25 mcg tablet 05/23/2005 Active buPROPion (WELLBUTRIN) 75 mg tablet 05/23/2005 Active omeprazole (PRILOSEC) 20 mg capsule 05/23/2005 Active AMOX TR/POTASSIUM CLAVULANATE (AMOXICILLIN-POT CLAVULANATE ORAL) 05/23/2005 Active ibuprofen (ADVIL;MOTRIN) 600 mg tablet 05/23/2005 Active acetaminophen (TYLENOL) 325 mg tablet 05/23/2005 Active Social History Tobacco Use Types Packs/Day Years Used Date Smoking Tobacco: Never Assessed Sex and Gender Information Value Date Recorded Sex Assigned at Not on file Gender Identity Not on file Sexual Orientation Not on file Plan of Treatment Health Maintenance Due Date Last Done Comments CT Colonography 1963 Colonoscopy 1963 Colorectal Cancer Screening 1963 FIT DNA 1963 FIT 1963 Sigmoidoscopy (10 year) with FIT yearly 1963 Sigmoidoscopy 1963 HIV screen 1981 Hepatitis C Screening 1981 Tetanus/Diphtheria/Pertussis Vaccines (1 - Tdap) 04/01 Pneumoccocal Vaccine: 50+ (1 of 1 - PCV) 2013 Zoster vaccine (1 of 2) 2013 Advance Directive 2018 Covid-19 Vaccine (1 - 2023- season) 2024 Influenza (Flu) vaccine (1 o f 1 - Influenza standard series) 07/20/2024 Care Teams Quality Engineering Manager Relationship Specialty Start Date End Date Rashawn Francisco MD [address] [place] [address] PCP - General 10/11/10
--- OUTSIDE RECORDS SUMMARY | 2024-12-18 10:16 | XMS_ITS | Encounter Summary ---
Author Organization [facility] Address [address] [place] [address] Care Team Providers Care Tree Fruit And Nut Crops Farmer Name Role Phone Unavailable Primary Care Provider Unavailabl e Encounter Details Date Type Department Care Team (Late st Contact Info) Description 12/27/2023 Lab Requisition [facility] Pathology & Laboratory Medicine - [address] [address] Outr Resulting Lab, Provider Social History Tobacco [...] Priority Date/Time Associated Diagnosis Comments THEOPHYLLINE Routine 12/26/2023 12:40 EST documented in this encounter Results * (ABNORMAL) THEOPHYLLINE (12/26/2023 12:40 EST) Theophylline 21.0(HH) 10.0 - 20.0 ug/mL 12/27/2023 18:24 EST [facility] Blood VENOUS BLOOD / Unknown 12/26/2023 12:40 EST 12/27/2023 17:01 EST us Provider Outr Resulting Lab CHEMISTRY & BLOOD GA S ORDERABLES Final Result [facility] [address] [place] [address] documented in this encounter Visit Diagnoses Not on filedocumented in this encounter
--- OUTSIDE RECORDS SUMMARY | 2024-12-18 10:16 | XMS_ITS | Encounter Summary ---
Author Organization [facility] [place] [address] Care Team Providers Care Ethnic Studies Professor Name Role Phone Rashawn Francisco MD Primary Care Provider [phone] Encounter Details Date Type Department Care Team (Late st Contact Info) Description 03/06/2023 Telephone [place] [phone] Kimberli James Social History Tobacco Use Types Packs/Day Years Used Date Smoking Tobacco: Never Assessed Sex and Gender Information Value Date Recorded Sex Assigned at Not on file Gender Identity Not on file Sexual Orientation Not on file documented as of this encounter Plan of Treatment Not on file documented as of this encounter Visit Diagnoses Not on filedocumented in this encounter Care Teams Ethnic Studies Professor Relationship Specialty Start Date End Date Rashawn Francisco MD [address] [place] [address] PCP - General 10/11/10 documented as of this encounter
--- OUTSIDE RECORDS SUMMARY | 2024-12-18 10:16 | XMS_ITS | Encounter Summary ---
Author Organization [facility] [place] [address] Care Team Providers Care Brick Kiln Worker Name Role Phone Rashawn Francisco MD Primary Care Provider Reason for Visit * Reason Onset Date Comments Other 04/12/2023 CT Chest Encounter Details Date Type Department Care Team (Late st Contact Info) Description 04/12/2023 Telephone [place] [phone] Mj Haynes, RN Other (CT Chest) Social History Tobacco Use Types Packs/Day Years Used Date Smoking Tobacco: Never Assessed Sex and Gender Information Value Date Recorded Sex Assigned at Not on file Gender Identity Not on file Sexual Orientation Not on file documented as of this encounter Miscellaneous Notes * Telephone Encounter - Mj Haynes RN - 04/12/2023 3:31 PM EDT LM for pt to contact CT to schedule imaging or to call Pulmonary to update his medical record documented in this encounter Plan of Treatment Not on file documented as of this encounter Visit Diagnoses Not on filedocumented in this encounter Care Teams Brick Kiln Worker Relationship Specialty Start Date End Date Rashawn Francisco MD [address] [place] [address] PCP - General 10/11/10 documented as of this encounter
--- OUTSIDE RECORDS SUMMARY | 2024-12-18 10:16 | XMS_ITS | Encounter Summary ---
Author Organization [facility] Address [address] [place] [address] Care Team Providers Care Dressing Machine Operator Name Role Phone Unavailable Primary Care Provider Unavailabl e Encounter Details Date Type Department Care Team (Late st Contact Info) Description 01/10/2024 Lab Requisition [facility] Pathology & [place] [address] Outr Resulting Lab, Provider Social History Tobacco [...] Priority Date/Time Associated Diagnosis Comments THEOPHYLLINE Routine 01/10/2024 9:55 EST documented in this encounter Results * THEOPHYLLINE (01/10/2024 9:55 EST) Theophylline 11.9 10.0 - 20.0 ug/mL 01/10/2024 18:51 EST [facility] Blood VENOUS BLOOD / Unknown 01/10/2024 9:55 EST 01/10/2024 17:21 EST us Provider Outr Resulting Lab CHEMISTRY & BLOOD GA S ORDERABLES Final Result [facility] [address] [place] [address] documented in this encounter Visit Diagnoses Not on filedocumented in this encounter
[2024-12-18] MEDS: methylPREDNISolone SUCC 125 MG VIAL IVP (10:19)
[2024-12-18 10:44] LABS: COVID-19 PCR Negative (Negative); Influenza A PCR Negative (Negative); Influenza B PCR Negative (Negative); RSV PCR Negative (Negative)
[2024-12-18 10:58] LABS: Source Nasopharynx
[2024-12-18] MEDS: Potassium Chloride 20 MEQ TABCR 40 MEQ PO (11:52)
== END 2024-12-18 12:22 | disposition home or self-care (01) ==
PROVIDERS: Emergency Provider Registered Nurse Emergency; PCP Nurse Practitioner Family
DX: J41.1 Mucopurulent chronic bronchitis (principal); R00.0 Tachycardia, unspecified; J98.4 Other disorders of lung; E03.9 Hypothyroidism, unspecified; J44.9 Chronic obstructive pulmonary disease, unspecified; Z99.81 Dependence on supplemental oxygen; Z87.891 Personal history of nicotine dependence
CPT/HCPCS: 36415; 80053; 82375; 82805; 87637; 93005; 96374; 99285; 71045; 85025; 93010; 99284; J2919

== ENCOUNTER 2024-12-31 21:08 | Outpatient (REF) | payer MEDICARE, MEDICAID, SELFPAY ==
--- OUTSIDE RECORDS SUMMARY | 2024-12-31 21:20 | XMS_ITS | Clinical Summary ---
Author Organization [facility] [place] [address] Care Team Providers Care Brazing Machine Tender Name Role Phone Rashawn Francisco MD Primary Care Provider [phone] Allergies Active Allergy Reactions Criticality Noted Date [...] - Influenza standard series) 07/20/2024 Care Teams Brazing Machine Tender Relationship Specialty Start Date End Date Rashawn Francisco MD [address] [place] [address] PCP - General 10/11/10
--- OUTSIDE RECORDS SUMMARY | 2024-12-31 21:21 | XMS_ITS | Encounter Summary ---
Author Organization [facility] Address [address] [place] [address] Care Team Providers Care Beer Runner Name Role Phone Unavailable Primary Care Provider Unavailabl e Encounter Details Date Type Department Care Team (Late st Contact Info) Description 01/10/2024 Lab Requisition [facility] Pathology & [place] [address] Outr Resulting Lab, Provider Social History Tobacco [...] 10.0 - 20.0 ug/mL 01/10/2024 18:51 EST [facility] Blood VENOUS BLOOD / Unknown 01/10/2024 9:55 EST 01/10/2024 17:21 EST us Provider Outr Resulting Lab CHEMISTRY & BLOOD GA S ORDERABLES Final Result [facility] [address] [place] [address] documented in this encounter Visit Diagnoses Not on filedocumented in this encounter
--- OUTSIDE RECORDS SUMMARY | 2024-12-31 21:21 | XMS_ITS | Encounter Summary ---
Author Organization [facility] Address [address] [place] [address] Care Team Providers Care Administrative Support Technician Name Role Phone Unavailable Primary Care Provider Unavailabl e Encounter Details Date Type Department Care Team (Late st Contact Info) Description 06/13/2022 Lab Requisition [facility] Pathology & Laboratory Medicine - [facility] [address] [place] [address] Outr Resulting Lab, Provider Social History Tobacco [...] 10.0 - 20.0 ug/mL 06/13/2022 18:25 EDT [facility] Blood VENOUS BLOOD / Unknown 06/12/2022 16:50 EDT 06/13/2022 16:23 EDT us Provider Outr Resulting Lab CHEMISTRY & BLOOD GA S ORDERABLES Final Result [facility] [address] [place] [address] documented in this encounter Visit Diagnoses Not on filedocumented in this encounter
--- OUTSIDE RECORDS SUMMARY | 2024-12-31 21:21 | XMS_ITS | Encounter Summary ---
Author Organization [facility] [place] [address] Care Team Providers Care Laborer Landscape Name Role Phone Rashawn Francisco MD Primary Care Provider [phone] Encounter Details Date Type Department Care Team (Late st Contact Info) Description 04/26/2023 Telephone [place] [phone] Chrissy Sr, RN Social History Tobacco Use Types Packs/Day Years Used Date Smoking Tobacco: Never Assessed Sex and Gender Information Value Date Recorded Sex Assigned at Not on file Gender Identity Not on file Sexual Orientation Not on file documented as of this encounter Miscellaneous Notes * Telephone Encounter - Chrissy Sr, RN - 04/26/2023 9:31 AM EDT Call [phone] documented in this encounter Plan of Treatment Not on file documented as of this encounter Visit Diagnoses Not on filedocumented in this encounter Care Teams Laborer Landscape Relationship Specialty Start Date End Date Rashawn Francisco MD [address] [place] [address] PCP - General 10/11/10 documented as of this encounter
--- OUTSIDE RECORDS SUMMARY | 2024-12-31 21:21 | XMS_ITS | Encounter Summary ---
Author Organization [facility] Address [address] [place] [address] Care Team Providers Care Flange Turner Name Role Phone Unavailable Primary Care Provider Unavailabl e Encounter Details Date Type Department Care Team (Late st Contact Info) Description 11/19/2020 Lab Requisition [facility] Pathology & Laboratory Medicine - [address] [address] Outr Resulting Lab, Provider Social History Tobacco [...] MICROBIOLOGY - GENER AL ORDERABLES Final Result [facility] [address] [place] [address] * (ABNORMAL) COVID-19 TESTING (11/18/2020 14:40 EST) COVID-19 rt-PCR Result Positive(AA ) Negative 11/21/2020 13:10 EST [facility] Comment: This test has not [...] co-infection with other viruses. Performed on the Bomberbother Fusion instrument Performing Lab [place] [facility] 11/21/2020 13:10 EST [facility] Swab 11/18/2020 14:4 0 EST 11/21/2020 0:42 EST us Provider Outr Resulting Lab MICROBIOLOGY - GENER AL ORDERABLES Final Result [facility] [address] [place] [address] documented in this encounter Visit Diagnoses Not on filedocumented in this encounter Additional Health Concerns Infection Onset Date Last Indicated Resolved Time COVID-19 11/18/2020 11/18/2020 12/18/2020 22:1 6 EST documented as of this encounter
--- OUTSIDE RECORDS SUMMARY | 2024-12-31 21:21 | XMS_ITS | Encounter Summary ---
Author Organization [facility] Address [address] [place] [address] Care Team Providers Care Locomotive Driver Name Role Phone Unavailable Primary Care Provider Unavailabl e Encounter Details Date Type Department Care Team (Late st Contact Info) Description 11/02/2020 Lab Requisition [facility] Pathology & Laboratory Medicine - [facility] [address] [place] [address] Outr Resulting Lab, Provider Social History Tobacco [...] in accordance with CLIA regulations, [employer] (CAP) guidelines (Feb 05, 2020), and FDA guidance (Jan 17, 2020). This test is only for use under the Food and Drug Administration's Emergency Use Authorization. Swab ENTIRE NASOPHARYNX / Unknown 11/01/2020 16:30 EST 11/02/2020 15:49 EST us Provider Outr Resulting Lab MICROBIOLOGY - GENER AL ORDERABLES Final Result [facility], [place] * COVID-19 TESTING (11/01/2020 16:30 EST) COVID-19 rt-PCR Result NEGATIVE Negative 11/04/2020 21:30 EST [facility] Comment: 2019-novel Coronavirus (2019-nCoV) not [...] in accordance with CLIA regulations, [employer] [place] [employer] (CAP) guidelines (Feb 05, 2020), and FDA guidance (Jan 17, 2020). This test is only for use under the Food and Drug Administration's Emergency Use Authorization. Performing Lab [facility] 11/04/2020 21:30 EST [facility] Swab 11/01/2020 16:3 0 EST 11/02/2020 15:49 EST us Provider Outr Resulting Lab MICROBIOLOGY - GENER AL ORDERABLES Final Result [facility] [address] [place], [place] [id number] [place] [address] LABORATORY [place], [place] documented in this encounter Visit Diagnoses Not on filedocumented in this encounter Additional Health Concerns Infection Onset Date Last Indicated Resolved Time COVID-19 11/18/2020 11/18/2020 12/18/2020 22:1 6 EST documented as of this encounter
--- OUTSIDE RECORDS SUMMARY | 2024-12-31 21:21 | XMS_ITS | Encounter Summary ---
Author Organization [facility] Address [address] [place] [address] Care Team Providers Care Insurance Claims Adjuster Name Role Phone Unavailable Primary Care Provider Unavailabl e Encounter Details Date Type Department Care Team (Late st Contact Info) Description 12/27/2023 Lab Requisition [facility] Pathology & Laboratory Medicine - Main [address] [address] Outr Resulting Lab, Provider Social History Tobacco [...] 10.0 - 20.0 ug/mL 12/27/2023 18:24 EST [facility] Blood VENOUS BLOOD / Unknown 12/26/2023 12:40 EST 12/27/2023 17:01 EST us Provider Outr Resulting Lab CHEMISTRY & BLOOD GA S ORDERABLES Final Result [facility] [address] [place] [address] documented in this encounter Visit Diagnoses Not on filedocumented in this encounter
--- OUTSIDE RECORDS SUMMARY | 2024-12-31 21:21 | XMS_ITS | Encounter Summary ---
Author Organization [facility] Address [facility] [place] [address] Care Team Providers Care Machine Cloth Measurer Name Role Phone Rashawn Francisco MD Primary Care Provider [phone] Encounter Details Date Type Department Care Team (Late st Contact Info) Description 09/10/2022 Ancillary Procedure Radiology Library at [facility] [place] [id number] Rashawn Francisco MD [address] [place], [place] [id number] Social History Tobacco Use Types Packs/Day Years [...] Francisco MD IMG FILM LIBRARY ORD ERABLES [facility] [place], [place] documented in this encounter Visit Diagnoses Not on filedocumented in this encounter Care Teams Machine Cloth Measurer Relationship Specialty Start Date End Date Rashawn Francisco MD [address] [place] [address] PCP - General 10/11/10 documented as of this encounter
--- OUTSIDE RECORDS SUMMARY | 2024-12-31 21:21 | XMS_ITS | Encounter Summary ---
Author Organization [facility] Address [address] [place] [address] Care Team Providers Care Transport Rn Name Role Phone Unavailable Primary Care Provider Unavailabl e Encounter Details Date Type Department Care Team (Late st Contact Info) Description 12/14/2020 Lab Requisition [facility] Pathology & Laboratory Medicine - [address] [address] Outr Resulting Lab, Provider Social History Tobacco [...] 10.0 - 20.0 ug/mL 12/14/2020 21:31 EST [facility] Blood VENOUS BLOOD / Unknown 12/14/2020 11:20 EST 12/14/2020 20:46 EST us Provider Outr Resulting Lab CHEMISTRY & BLOOD GA S ORDERABLES Final Result [facility] [address] [place] [address] documented in this encounter Visit Diagnoses Not on filedocumented in this encounter Additional Health Concerns Infection Onset Date Last Indicated Resolved Time COVID-19 11/18/2020 11/18/2020 12/18/2020 22:1 6 EST documented as of this encounter
--- OUTSIDE RECORDS SUMMARY | 2024-12-31 21:21 | XMS_ITS | Encounter Summary ---
Author Organization [facility] Address [address] [place] [address] Care Team Providers Care Turkey Boner Name Role Phone Unavailable Primary Care Provider Unavailabl e Encounter Details Date Type Department Care Team (Late st Contact Info) Description 11/09/2020 Lab Requisition [facility] Pathology & Laboratory Medicine - [facility] [address] [place] [address] Outr Resulting Lab, Provider Social History Tobacco [...] in accordance with CLIA regulations, [employer] [place] [employer] (CAP) guidelines (Feb 05, 2020), and FDA guidance (Jan 17, 2020). This test is only for use under the Food and Drug Administration's Emergency Use Authorization. Swab ENTIRE NASOPHARYNX / Unknown 11/08/2020 13:00 EST 11/09/2020 15:59 EST us Provider Outr Resulting Lab MICROBIOLOGY - GENER AL ORDERABLES Final Result [facility], [place] * COVID-19 TESTING (11/08/2020 13:00 EST) COVID-19 rt-PCR Result NEGATIVE Negative 11/11/2020 0:07 EST [facility] Comment: 2019-novel Coronavirus (2019-nCoV) not [...] in accordance with CLIA regulations, [employer] [place] [employer] (CAP) guidelines (Feb 05, 2020), and FDA guidance (Jan 17, 2020). This test is only for use under the Food and Drug Administration's Emergency Use Authorization. Performing Lab [facility] 11/11/2020 0:07 EST [facility] Swab 11/08/2020 13:0 0 EST 11/09/2020 15:59 EST us Provider Outr Resulting Lab MICROBIOLOGY - GENER AL ORDERABLES Final Result [facility] [address] [place], [place] [id number] [place] [address] LABORATORY [place], [place] documented in this encounter Visit Diagnoses Not on filedocumented in this encounter Additional Health Concerns Infection Onset Date Last Indicated Resolved Time COVID-19 11/18/2020 11/18/2020 12/18/2020 22:1 6 EST documented as of this encounter
--- OUTSIDE RECORDS SUMMARY | 2024-12-31 21:21 | XMS_ITS | Encounter Summary ---
Author Organization [facility] [place] [address] Care Team Providers Care Spare Fixer Name Role Phone Rashawn Francisco MD Primary Care Provider [phone] Reason for Visit * Reason Onset Date Comments Other 04/12/2023 CT Chest Encounter Details Date Type Department Care Team (Late st Contact Info) Description 04/12/2023 [place] [address] Mj Haynes, RN Other (CT [...] on filedocumented in this encounter Care Teams Spare Fixer Relationship Specialty Start Date End Date Rashawn Francisco MD [address] [place] [address] PCP - General 10/11/10 documented as of this encounter
--- OUTSIDE RECORDS SUMMARY | 2024-12-31 21:21 | XMS_ITS | Referral Summary ---
Author Organization [facility] Address [address] [place] [address] Care Team Providers Care Business Sales Consultant Name Role Phone Unavailable Primary Care Provider [...]
--- OUTSIDE RECORDS SUMMARY | 2024-12-31 21:21 | XMS_ITS | Encounter Summary ---
Author Organization [facility] Address [address] [place] [address] Care Team Providers Care Division Chair Name Role Phone Unavailable Primary Care Provider Unavailabl e Encounter Details Date Type Department Care Team (Late st Contact Info) Description 10/18/2022 Lab Requisition [facility] Pathology & [place] [address] Outr Resulting Lab, Provider Social History Tobacco [...] IgE 5 <158 IU/mL 10/20/2022 10:32 EST [facility] Blood VENOUS BLOOD / Unknown 10/18/2022 14:46 EST 10/18/2022 21:31 EST us Provider Outr Resulting Lab CHEMISTRY & BLOOD GA S ORDERABLES Final Result [facility] [address] [place] [address] documented in this encounter Visit Diagnoses Not on filedocumented in this encounter
--- OUTSIDE RECORDS SUMMARY | 2024-12-31 21:21 | XMS_ITS | Encounter Summary ---
Author Organization [facility] [place] [address] Care Team Providers Care Sales And Marketing Professional Name Role Phone Rashawn Francisco MD Primary Care Provider [phone] Encounter Details Date Type Department Care Team (Late st Contact Info) Description 10/31/2022 Orders [place] [address] Corie Anderson, RETAIL PLANNER [facility] [place] [address] Chronic obstructive pulmonary disease, unspecified COPD type [...] type documented in this encounter Care Teams Sales And Marketing Professional Relationship Specialty Start Date End Date Rashawn Francisco MD [address] [place] [address] PCP - General 10/11/10 documented as of this encounter
--- OUTSIDE RECORDS SUMMARY | 2024-12-31 21:21 | XMS_ITS | Clinical Summary ---
Author Organization [facility] Address [address] [place] [address] Care Team Providers Care Gps Field Data Collector Name Role Phone Unavailable Primary Care Provider [...]
--- OUTSIDE RECORDS SUMMARY | 2024-12-31 21:21 | XMS_ITS | Encounter Summary ---
Author Organization [facility] [place] [address] Care Team Providers Care Validation Manager Name Role Phone Rashawn Francisco MD Primary Care Provider [phone] Encounter Details Date Type Department Care Team (Late st Contact Info) Description 03/06/2023 Telephone [place] [phone] Kimberli James Social History Tobacco Use Types [...] on filedocumented in this encounter Care Teams Validation Manager Relationship Specialty Start Date End Date Rashawn Francisco MD [address] [place] [address] PCP - General 10/11/10 documented as of this encounter
--- OUTSIDE RECORDS SUMMARY | 2024-12-31 21:21 | XMS_ITS | Encounter Summary ---
Author Organization [facility] Address [address] [place] [address] Care Team Providers Care Cross Country Coach Name Role Phone Unavailable Primary Care Provider Unavailabl e Encounter Details Date Type Department Care Team (Late st Contact Info) Description 11/11/2020 Lab Requisition [facility] Pathology & Laboratory Medicine - [address] [address] Outr Resulting Lab, Provider Social History Tobacco [...] MICROBIOLOGY - GENER AL ORDERABLES Final Result [facility] [address] [place] [address] * COVID-19 TESTING (11/11/2020 12:40 EST) COVID-19 rt-PCR Result Indeterminate Negative 11/13/2020 8:46 EST [facility] Comment: Indeterminate results do not [...] terminated or revoked sooner. Performed on the [employer] Fusion instrument Performing Lab [place] [facility] Lab 11/13/2020 8:46 EST [facility] Swab 11/11/2020 12:4 0 EST 11/11/2020 20:06 EST us Provider Outr Resulting Lab MICROBIOLOGY - GENER AL ORDERABLES Final Result [facility] [address] [place] [address] documented in this encounter Visit Diagnoses Not on filedocumented in this encounter Additional Health Concerns Infection Onset Date Last Indicated Resolved Time COVID-19 11/18/2020 11/18/2020 12/18/2020 22:1 6 EST documented as of this encounter
[2024-12-31 21:55] LABS: Anion Gap 6.6 mmol/L (3-11); BUN 7 mg/dL (7-18); CO2 29.4 mmol/L (21.0-32.0); CREATININE 0.9 mg/dL (0.70-1.30); Calcium 9.3 mg/dL (8.5-10.1); Chloride 107 mmol/L (98-107); Estimated GFR 97.17 (mL/min/1.73m2); Glucose 121 mg/dL (74-106); Magnesium 2.2 mg/dL (1.8-2.4); Potassium 4.1 mmol/L (3.5-5.1); Sodium 143 mmol/L (136-145)
== END 2024-12-31 21:09 | disposition home or self-care (01) ==
LOC: NCHCN 21:08
PROVIDERS: PCP Nurse Practitioner Family; Visit Provider Family Medicine
DX: J44.1 Chronic obstructive pulmonary disease with (acute) exacerbation (principal)
CPT/HCPCS: 80048; 80198; 83735

== ENCOUNTER 2025-09-24 14:17 | Outpatient (REF) | payer MEDICARE, MEDICAID, SELFPAY ==
[2025-09-24 16:26] LABS: Anion Gap 8.1 mmol/L (3-11); BUN 11 mg/dL (7-18); CO2 30.9 mmol/L (21.0-32.0); Calcium 9.1 mg/dL (8.5-10.1); Chloride 104 mmol/L (98-107); Cholesterol 244 mg/dL (<200); Glucose 103 mg/dL (74-106); HDL Cholesterol 58 mg/dL (>or=40); Potassium 4.1 mmol/L (3.5-5.1); Sodium 143 mmol/L (136-145); TSH 5.34 uIU/mL (0.36-3.74); Vitamin D 25 Total 6 ng/mL (30-100)
== END 2025-09-24 14:18 | disposition home or self-care (01) ==
LOC: NCHCN 14:17
PROVIDERS: PCP Nurse Practitioner Family; Visit Provider Family Medicine
DX: Z00.00 Encounter for general adult medical examination without abnormal findings (principal); E78.5 Hyperlipidemia, unspecified
CPT/HCPCS: 80048; 80061; 82306; 84439; 84443